=== PATIENT | male | born 1960 | race Asian ===

== ENCOUNTER 2019-04-05 08:51 | Inpatient (IN) | payer MEDICARE ==
[~2019-04-05] VITALS: Ht 167.6 cm; Wt 56.7 kg
--- NOTE | 2019-04-05 09:00 | NUR ---
ED Nurse Note: patient brought into ED from [facility] due to abdominal pain for 1 day. patient c/o itchiness on his back due to psoriasis as well. patient is alert awake x3 patient on a hospital gown, on a residential monitor, patient has AV shunt on the right upper arm.
--- NOTE | 2019-04-05 09:11 | Emergency Room Report ---
History of Present Illness General Chief Complaint: Abdominal Pain Source: Patient Present Illness HPI The patient presents with abdominal pain. He is pointing to his left upper quadrant and left flank area. He states this pain began this morning. He feels nauseated. He rates the pain 7-8/10 constant and fairly severe. Patient is a dialysis patient. They alleged that his dialysis is Monday and Monday. The patient does not make urine. He complains of itching and skin. Allergies: Coded Allergies: No Known Allergies (Unverified , 04/05/19) Patient History Past Medical History: see triage record Social History Narrative [facility] facility Reviewed Nursing Documentation: PMH: Agreed; PSxH: Agreed Nursing Documentation-PMH Past Medical History: No History, Except For Hx Cardiac Problems: Yes - hyperlipidemia Hx COPD: Yes Hx Gastrointestinal Problems: Yes - GERD Hx Dialysis: Yes - T,,S Review of Systems All Other Systems: negative except mentioned in HPI Physical Exam Vital Signs Date Time Temp Pulse Resp B/P (MAP) Pulse Ox O2 Delivery O2 Flow Rate FiO2 04/05/19 08:54 97.7 80 18 180/76 (110) 94 Room Air Sp02 EP Interpretation: reviewed, abnormal - Interpreted as slightly low by me General Appearance: no apparent distress, alert, other - Prefers to keep eyes closed Head: normocephalic Eyes: bilateral eye normal inspection, bilateral eye PERRL, bilateral eye EOMI ENT: moist mucus membranes Neck: full range of motion, supple, no meningismus Respiratory: chest non-tender, lungs clear, normal breath sounds Cardiovascular #1: normal peripheral pulses, regular rate, rhythm, no edema Cardiovascular #2: 2+ radial (R) - Dialysis fistula with thrill Gastrointestinal: normal bowel sounds, no mass, no guarding, no rebound, tenderness - Left upper quadrant Genitourinary: no CVA tenderness Musculoskeletal: back normal, moves extm spontaneously Neurologic: alert, oriented - X2, sensory intact, motor weakness - All 4 Psychiatric: depressed affect Skin: warm/dry, other - Cirrhosis Medical Decision Making Diagnostic Impression: Primary Impression: Abdominal pain Qualified Codes: R10.12 - Left upper quadrant pain Additional Impressions: Enteritis End stage renal disease on dialysis Dermatitis ER Course Dialysis patient presents with left upper quadrant and flank pain beginning this morning. Differential includes acute myocardial infarction, chondritis, renal stone, diverticulitis amongst others. Evaluation with EKG, chest x-ray and CT of the abdomen and pelvis with labs. Patient given some IV hydration and also Reglan, Benadryl and morphine. Serial exams are indicated. Patient has significant comorbidities and may need to be admitted to the hospital. EKG without injury. Chest x-ray with cardiomegaly and some reversal of flow. Normal white count without left shift. Anemia. CMP with chronic renal failure. Patient states the pain is the same however he refuses additional doses of analgesia. Abdomen is still soft. Due to the complexity of this patient and his comorbidities patient admitted to the hospital for further evaluation and treatment. Laboratory Tests Test 04/05/19 09:05 04/05/19 09:15 Prothrombin Time 10.7 SEC (9.30-11.50) Prothrombin Time INR 1.0 (0.9-1.1) Activated Partial Thromboplast Time 34 SEC (23-33) H Sodium Level 137 MMOL/L (136-145) Potassium Level 5.0 MMOL/L (3.5-5.1) Chloride Level 96 MMOL/L (98-107) L Carbon Dioxide Level 29 MMOL/L (21-32) Anion Gap 12 mmol/L (5-15) Blood Urea Nitrogen 30 mg/dL (7-18) H Creatinine 5.6 MG/DL (0.55-1.30) H Estimate Glomerular Filtration Rate 10.5 mL/min (>60) Glucose Level 96 MG/DL (74-106) Lactic Acid Level 1.00 mmol/L (0.4-2.0) Calcium Level 7.9 MG/DL (8.5-10.1) L Magnesium Level 2.3 MG/DL (1.8-2.4) Total Bilirubin 0.4 MG/DL (0.2-1.0) Aspartate Amino Transferase (AST) 21 U/L (15-37) Alanine Aminotransferase (ALT) 12 U/L (12-78) Alkaline Phosphatase 70 U/L (46-116) Troponin I 0.007 ng/mL (0.000-0.056) Total Protein 7.4 G/DL (6.4-8.2) Albumin 2.7 G/DL (3.4-5.0) L Globulin 4.7 g/dL Albumin/Globulin Ratio 0.6 (1.0-2.7) L Lipase 227 U/L (73-393) White Blood Count 5.8 K/UL (4.8-10.8) Red Blood Count 2.95 M/UL (4.70-6.10) L Hemoglobin 9.5 G/DL (14.2-18.0) L Hematocrit 28.2 % (42.0-52.0) L Mean Corpuscular Volume 96 FL (80-99) Mean Corpuscular Hemoglobin 32.2 PG (27.0-31.0) H Mean Corpuscular Hemoglobin Concent 33.6 G/DL (32.0-36.0) Red Cell Distribution Width 12.9 % (11.6-14.8) Platelet Count 176 K/UL (150-450) Mean Platelet Volume 4.7 FL (6.5-10.1) L Neutrophils (%) (Auto) % (45.0-75.0) Lymphocytes (%) (Auto) % (20.0-45.0) Monocytes (%) (Auto) % (1.0-10.0) Eosinophils (%) (Auto) % (0.0-3.0) Basophils (%) (Auto) % (0.0-2.0) Differential Total Cells Counted 100 Neutrophils % (Manual) 56 % (45-75) Lymphocytes % (Manual) 17 % (20-45) L Monocytes % (Manual) 23 % (1-10) H Eosinophils % (Manual) 4 % (0-3) H Basophils % (Manual) 0 % (0-2) Band Neutrophils 0 % (0-8) Platelet Estimate Adequate Platelet Morphology Normal Red Blood Cell Morphology Normal EKG Diagnostic Results Rate: normal Rhythm: NSR ST Segments: no acute changes - Diffuse peaked T waves, LVH Rhythm Strip Diag. Results EP Interpretation: yes Rhythm: NSR, no PVC's, no ectopy Chest X-Ray Diagnostic Results Chest X-Ray Diagnostic Results : Chest X-Ray Ordered: Yes # of Views/Limited/Complete: 1 View Indication: Other EP Interpretation: Yes Interpretation: no effusion, no pneumothorax, other - Cardiomegaly and reversal of flow Impression: Other Electronically Signed by: Electronically signed by Jesus Damon MD CT/MRI/US Diagnostic Results CT/MRI/US Diagnostic Results : Imaging Test Ordered: Abdomen and pelvis Impression Questionable minimal wall thickening of left upper quadrant small bowel loops, if real could indicate mild enteritis changes. Bilateral inguinal lymphadenopathy, nonspecific as regards etiology, could be reactive, neoplastic, or on the basis of a lymphoproliferative disorder. There are also prominent but not frankly enlarged bilateral iliac chain and retroperitoneal lymph nodes. Mild hepatomegaly Atrophic kidneys, in keeping with stated clinical history of chronic renal disease Cardiomegaly Incidental finding of posterior dependent pulmonary atelectatic changes Last Vital Signs Date Time Temp Pulse Resp B/P (MAP) Pulse Ox O2 Delivery O2 Flow Rate FiO2 04/05/19 16:15 Room Air 04/05/19 15:14 97.7 78 15 166/68 95 Status: improved Disposition: ADMITTED INPATIENT Condition: Serious Jesus Damon MD Apr 05, 2019 09:11
[2019-04-05] MEDS ORDERED: Morphine Sulfate 4mg/ml Inj (IV USE ONLY) IVP ONE (09:15)
[2019-04-05] MEDS ORDERED: Metoclopramide 10mg/2ml Inj IVP ONE (09:15)
[2019-04-05] MEDS ORDERED: DiphenhydrAMINE 50mg/ml Inj IVP ONE (09:15)
[2019-04-05] MEDS ORDERED: Omnipaque-300 100ml vial INJ PRN (09:15)
[2019-04-05] MEDS ORDERED: ALBUTEROL2.5 MG/3 M INH (09:35)
[2019-04-05] MEDS ORDERED: CATAPRES0.1 MG ORAL (09:35)
[2019-04-05] MEDS ORDERED: CARVEDILOL12.5 MG ORAL (09:35)
[2019-04-05] MEDS ORDERED: INVEGA3 MG PO (09:35)
[2019-04-05] MEDS ORDERED: ACETAMINOPHEN325 M1 ORAL (09:35)
[2019-04-05] MEDS ORDERED: SERTRALINE HCL50 MG ORAL (09:35)
[2019-04-05 09:41] LABS: HEMATOCRIT 28.2 % (42.0-52.0); HEMOGLOBIN 9.5 G/DL (14.2-18.0); MEAN CORPUSCULAR VOLUME 96 FL (80-99); PLATELET COUNT 176 K/UL (150-450); RED BLOOD COUNT 2.95 M/UL (4.70-6.10); RED CELL DISTRIBUTION WIDTH 12.9 % (11.6-14.8); WHITE BLOOD COUNT 5.8 K/UL (4.8-10.8)
--- NOTE | 2019-04-05 09:50 | NUR ---
.ED Nurse Note: patient taken to CT scan
[2019-04-05 09:55] LABS: ANION GAP 12 mmol/L (5-15); BLOOD UREA NITROGEN 30 mg/dL (7-18); CALCIUM 7.9 MG/DL (8.5-10.1); CARBON DIOXIDE 29 MMOL/L (21-32); CHLORIDE 96 MMOL/L (98-107); CREATININE 5.6 MG/DL (0.55-1.30); SODIUM 137 MMOL/L (136-145)
[2019-04-05 09:59] LABS: ALANINE AMINOTRANSFERASE 12 U/L (12-78); ALBUMIN 2.7 G/DL (3.4-5.0); ALBUMIN/GLOBULIN RATIO 0.6 (1.0-2.7); ALKALINE PHOSPHATASE 70 U/L (46-116); ASPARTATE AMINO TRANSFERASE 21 U/L (15-37); BILIRUBIN,TOTAL 0.4 MG/DL (0.2-1.0)
[2019-04-05 10:33] VITALS: BP 152/76
--- NOTE | 2019-04-05 10:43 | Diagnostic Imaging Report ---
Clinical Indication: Abdominal pain in left upper quadrant and left flank area, 7-8 out of 10, constant and severe Technique: No oral contrast utilized, per emergency room physician request IV administration nonionic contrast. Venous phase spiral acquisition obtained through the abdomen and pelvis. Multiplanar reconstructions were generated. Total dose length product 185 mGycm. CTDIvol(s) 3 mGy. Dose reduction achieved using automated exposure control Comparison: none Findings: Lack of enteric contrast limits assessment of the GI tract. There is no evidence of colonic diverticulosis or diverticulitis. What is probably a normal appendix is visualized. No small bowel distention. There is questionably minimal wall thickening of left upper quadrant small bowel loops. No free or loculated intraperitoneal gas or fluid is evident. There is bilateral inguinal lymphadenopathy, largest nodes measuring up to 2.5 cm long axis dimension by 1.6 cm short axis dimension. There are also prominent less strikingly enlarged iliac chain and retroperitoneal nodes. There are a few prominent peripancreatic nodes as well. The liver is mildly enlarged. Gallbladder demonstrates no definite gallstones. There is equivocal minimal edema of the gallbladder wall, however. No biliary ductal dilatation. The pancreas is unremarkable. The spleen is upper limits of normal in size. The adrenals are unremarkable. The kidneys are atrophic. No pelvic mass other than the lymphadenopathy. The bladder and prostate are unremarkable. There is fairly extensive vascular calcification. The lung bases demonstrate posterior dependent atelectatic changes. The heart is enlarged. The bones are unremarkable. Impression: Limited assessment of the GI tract, due to lack of enteric contrast demonstration Questionable minimal wall thickening of left upper quadrant small bowel loops, if real could indicate mild enteritis changes. Bilateral inguinal lymphadenopathy, nonspecific as regards etiology, could be reactive, neoplastic, or on the basis of a lymphoproliferative disorder. There are also prominent but not frankly enlarged bilateral iliac chain and retroperitoneal lymph nodes. Mild hepatomegaly Atrophic kidneys, in keeping with stated clinical history of chronic renal disease Cardiomegaly Incidental finding of posterior dependent pulmonary atelectatic changes The CT scanner at [facility] is accredited by the [employer] and the scans are performed using protocols designed to limit radiation exposure to as low as reasonably achievable to attain images of sufficient resolution adequate for diagnostic evaluation.
--- NOTE | 2019-04-05 11:22 | GI Initial Consult Note ---
History of Present Illness General Date patient seen: Apr 05, 2019 Time patient seen: 11:10 Reason for Hospitalization: Abdominal Pain Referring physician: MOMO ABDI Reason for Consultation: ABDOMINAL PAIN Present Illness HPI The patient presents with abdominal pain. He is pointing to his left upper quadrant and left flank area. He states this pain began this morning. He feels nauseated. He rates the pain 7-8/10 constant and fairly severe. Patient is a dialysis patient. They alleged that his dialysis is Monday and Monday. The patient does not make urine. GI consulted for reported abdominal pain. Patient seen, awake alert oriented no apparent distress. No active signs symptoms of any nausea vomiting. According to the patient, initial onset began yesterday. The patient denied any prior episodes. The abdomen was soft, mild tenderness in all quadrants, no distention, mild guarding, no rebounding, no peritoneal signs. Abdominal pelvis CT was performed noted questionable minimal wall thickening of the left upper quadrant small bowel loops which may indicative of a mild enteritis changes. There was equivocal minimal edema of the gallbladder wall. No biliary ductal dilation. Pancreas was unremarkable. The patient denied any history of endoscopic or colonoscopy. Laboratory review most significant for hemoglobin 9.5, hematocrit 28.2, no transaminitis, lipase levels within normal limits. Home Meds Reported Medications Paliperidone (INVEGA) 3 Mg Tab.er.24, 3 MG PO for SCHIZO, TAB 04/05/19 Sertraline Hcl* (ZOLOFT*) 50 Mg Tablet, 50 MG ORAL DAILY for SADNESS, TAB 04/05/19 Acetaminophen* (ACETAMINOPHEN 325MG TABLET*) 325 Mg Tablet, 650 MG ORAL Q4H PRN for Pain Scale (3-5), TAB 04/05/19 Clonidine Hcl* (CATAPRES*) 0.1 Mg Tablet, 0.1 MG ORAL EVERY 6 HOURS for HTN, TAB 04/05/19 Carvedilol* (CARVEDILOL*) 12.5 Mg Tablet, 12.5 MG ORAL EVERY 12 HOURS for UNK, TAB 04/05/19 Albuterol Sulfate* (ALBUTEROL SULFATE HHN*) 2.5 Mg/3 Ml Vial.neb, 3 ML INH Q4H PRN for Shortness of Breath, EA 04/05/19 Med list reviewed/reconciled: Yes Allergies: Coded Allergies: No Known Allergies (Unverified , 04/05/19) Patient History History Provided By: Patient, Medical Record Past Medical History: other - ESRD Pertinent Family History: none Social History: Denies: smoking, alcohol use, drug use, other Review of Systems All Other Systems: negative except mentioned in HPI Physical Exam Vital Signs Date Time Temp Pulse Resp B/P (MAP) Pulse Ox O2 Delivery O2 Flow Rate FiO2 04/05/19 08:54 97.7 80 18 180/76 (110) 94 Room Air Sp02 EP Interpretation: reviewed, normal Labs Laboratory Tests Test 04/05/19 09:05 04/05/19 09:15 Prothrombin Time 10.7 SEC (9.30-11.50) Prothromb Time International Ratio 1.0 (0.9-1.1) Activated Partial Thromboplast Time 34 SEC (23-33) H Sodium Level 137 MMOL/L (136-145) Potassium Level 5.0 MMOL/L (3.5-5.1) Chloride Level 96 MMOL/L (98-107) L Carbon Dioxide Level 29 MMOL/L (21-32) Anion Gap 12 mmol/L (5-15) Blood Urea Nitrogen 30 mg/dL (7-18) H Creatinine 5.6 MG/DL (0.55-1.30) H Estimat Glomerular Filtration Rate 10.5 mL/min (>60) Glucose Level 96 MG/DL (74-106) Lactic Acid Level 1.00 mmol/L (0.4-2.0) Calcium Level 7.9 MG/DL (8.5-10.1) L Magnesium Level 2.3 MG/DL (1.8-2.4) Total Bilirubin 0.4 MG/DL (0.2-1.0) Aspartate Amino Transf (AST/SGOT) 21 U/L (15-37) Alanine Aminotransferase (ALT/SGPT) 12 U/L (12-78) Alkaline Phosphatase 70 U/L (46-116) Troponin I 0.007 ng/mL (0.000-0.056) Total Protein 7.4 G/DL (6.4-8.2) Albumin 2.7 G/DL (3.4-5.0) L Globulin 4.7 g/dL Albumin/Globulin Ratio 0.6 (1.0-2.7) L Lipase 227 U/L (73-393) White Blood Count 5.8 K/UL (4.8-10.8) Red Blood Count 2.95 M/UL (4.70-6.10) L Hemoglobin 9.5 G/DL (14.2-18.0) L Hematocrit 28.2 % (42.0-52.0) L Mean Corpuscular Volume 96 FL (80-99) Mean Corpuscular Hemoglobin 32.2 PG (27.0-31.0) H Mean Corpuscular Hemoglobin Concent 33.6 G/DL (32.0-36.0) Red Cell Distribution Width 12.9 % (11.6-14.8) Platelet Count 176 K/UL (150-450) Mean Platelet Volume 4.7 FL (6.5-10.1) L Neutrophils (%) (Auto) % (45.0-75.0) Lymphocytes (%) (Auto) % (20.0-45.0) Monocytes (%) (Auto) % (1.0-10.0) Eosinophils (%) (Auto) % (0.0-3.0) Basophils (%) (Auto) % (0.0-2.0) Neutrophils % (Manual) Pending Lymphocytes % (Manual) Pending Platelet Estimate Pending Platelet Morphology Pending General Appearance: well appearing, no apparent distress, alert Head: normocephalic EENT: PERRL/EOMI, normal ENT inspection Neck: supple Respiratory: normal breath sounds, no respiratory distress Cardiovascular: normal rate Gastrointestinal: normal inspection, non tender, soft, normal bowel sounds, non -distended, other - see HPI Rectal: deferred Genitourinary: deferred Musculoskeletal: normal inspection, back normal Neurologic: alert, oriented x3, responsive, normal inspection Psychiatric: normal inspection, judgement/insight normal, memory normal Skin: normal inspection, normal color, no rash, warm/dry, palpation normal, well hydrated Lymphatic: normal inspection, no adenopathy Current Medications Current Medications Medications (Trade) Dose Ordered Sig/Velma Route PRN Reason Start Time Stop Time Status Last Admin Dose Admin Iohexol (OMNIPAQUE-300 100ml) 100 ml NOW PRN INJ Radiology Procedure 04/05/19 09:15 04/07/19 09:02 GI: Plan Problems: (1) Abdominal pain (2) Enteritis (3) Anemia Plan #Abdominal pain secondary to viral enteritis CT reviewed (04/05/19) >> Questionable minimal wall thickening of left upper quadrant small bowel loops, if real could indicate mild enteritis changes. Bowel rest, maintain n.p.o. plus IV fluids Advance diet as tolerated Zofran PRN for any nausea vomiting Collect stool studies and C. difficile if patient has persistent diarrhea rule out bacterial Pain management We will consider endoscopy if patient has persistent abdominal pain #Anemia most likely secondary to chronic kidney disease anemia work up Obtain occult blood stool to evaluate for any GI bleed monitor H&H, prn transfusions Prophylactic PPI We will follow on a daily basis with any additional recommendations Outpatient GI procedures Discussed with Dr. Novak. Thank you for this patient referral, we will follow. The patient was seen and examined at bedside and all new and available data was reviewed in the patients chart. I agree with the above findings, impression and plan. (Patient seen earlier today. Signature stamp does not reflect patient encounter time.). - MD Bree FlorDignity Health St[facility] Joseph'S Hospital And Medical CenterBenjamin REFIN[employer]ATOR [employer] Apr 05, 2019 11:22
--- NOTE | 2019-04-05 11:45 | Consultation ---
History of Present Illness General Date patient seen: Apr 05, 2019 Reason for Hospitalization: Abdominal Pain Present Illness HPI This is a 58 year old male with hx of ESRD on HD who is a custodial resident presented [place] [facility] with complaints of abdominal pain. States pain in left upper quadrant and left flank area. He states this pain began this morning. He feels nauseated but no emesis. He rates the pain 7-8/10 constant and fairly severe without radiation. Usually receives dialysis on Monday and Monday. Surgery consulted to evaluate for abdominal pain. Patient seen in ED , evaluate, chart reviewed. He is awake alert oriented and no apparent distress. No active signs symptoms of any nausea vomiting. No prior similar history. The abdomen is soft, minimal tenderness in all quadrants but states mainly on left upper. No distention, no guarding, no rebounding, no peritoneal signs. Abdominal pelvis CT was performed noted questionable minimal wall thickening of the left upper quadrant small bowel loops which may indicative of a mild enteritis changes. There was equivocal minimal edema of the gallbladder wall. No biliary ductal dilation. Pancreas was unremarkable. States he has not had a BM in a few days Allergies: Coded Allergies: No Known Allergies (Unverified , 04/05/19) Medication History Scheduled Carvedilol* (Carvedilol*), 12.5 MG ORAL EVERY 12 HOURS, (Reported) Clonidine Hcl* (Catapres*), 0.1 MG ORAL EVERY 6 HOURS, (Reported) Sertraline Hcl* (Zoloft*), 50 MG ORAL DAILY, (Reported) Scheduled PRN Acetaminophen* (Acetaminophen 325MG Tablet*), 650 MG ORAL Q4H PRN for Pain Scale (3-5), (Reported) Albuterol Sulfate* (Albuterol Sulfate Hhn*), 3 ML INH Q4H PRN for Shortness of Breath, (Reported) Miscellaneous Medications Paliperidone (Invega), 3 MG PO, (Reported) Patient History Limited by: medical condition History Provided By: Patient, Medical Record, PMD Healthcare decision maker Resuscitation status Advanced Directive on File Past Medical/Surgical History Past Medical/Surgical History: (1) Anemia (2) Enteritis (3) Abdominal pain Review of Systems Review of Symptoms General ROS: no weight loss or fever Psychological ROS: no depression or mood changes, no memory loss Ophthalmic ROS: no visual changes or eye irritation ENT ROS: no nasal congestion, hearing loss, dizziness Allergy and Immunology ROS: no allergic symptoms or urticaria Hematological and Lymphatic ROS: no swollen glands, unusual bleeding or bruising Endocrine ROS: no polyuria, polydipsia, weight changes, temperature intolerance Respiratory ROS: no cough, shortness of breath, or wheezing Cardiovascular ROS: no chest pain or dyspnea on exertion Gastrointestinal ROS: abdominal pain, no bright red blood in stool. Musculoskeletal ROS: no myalgias or arthralgias Neurological ROS: no TIA or stroke symptoms Dermatological ROS: no new or changing skin lesions, rashes or pruritis Physical Exam Physical Exam General appearance: alert, cooperative, no distress, appears stated age. Head: Normocephalic, without obvious abnormality, atraumatic Eyes: conjunctivae/corneas clear. PERRL, EOM's intact. Fundi benign Throat: Lips, mucosa, and tongue normal. Teeth and gums normal Neck: supple, symmetrical, trachea midline, no adenopathy, thyroid: not enlarged, symmetric, no tenderness/mass/nodules, no carotid bruit and no JVD Lungs: clear to auscultation bilaterally Heart: regular rate and rhythm, S1, S2 normal, no murmur, click, rub or gallop Abdomen: soft, minimal discomfort but non tender. Bowel sounds normal. No masses, no organomegaly Extremities: extremities normal, atraumatic, no cyanosis or edema Pulses: 2+ and symmetric Skin: Skin color, texture, turgor normal. dry skin with excortication Neurologic: Grossly normal Last 24 Hour Vital Signs Date Time Temp Pulse Resp B/P (MAP) Pulse Ox O2 Delivery O2 Flow Rate FiO2 04/05/19 10:33 97.7 78 15 152/76 95 Room Air 04/05/19 10:00 97.7 04/05/19 09:52 80 18 Room Air 04/05/19 08:54 97.7 80 18 180/76 (110) 94 Room Air Laboratory Tests Test 04/05/19 09:05 04/05/19 09:15 Prothrombin Time 10.7 SEC (9.30-11.50) Prothromb Time International Ratio 1.0 (0.9-1.1) Activated Partial Thromboplast Time 34 SEC (23-33) H Sodium Level 137 MMOL/L (136-145) Potassium Level 5.0 MMOL/L (3.5-5.1) Chloride Level 96 MMOL/L (98-107) L Carbon Dioxide Level 29 MMOL/L (21-32) Anion Gap 12 mmol/L (5-15) Blood Urea Nitrogen 30 mg/dL (7-18) H Creatinine 5.6 MG/DL (0.55-1.30) H Estimat Glomerular Filtration Rate 10.5 mL/min (>60) Glucose Level 96 MG/DL (74-106) Lactic Acid Level 1.00 mmol/L (0.4-2.0) Calcium Level 7.9 MG/DL (8.5-10.1) L Magnesium Level 2.3 MG/DL (1.8-2.4) Total Bilirubin 0.4 MG/DL (0.2-1.0) Aspartate Amino Transf (AST/SGOT) 21 U/L (15-37) Alanine Aminotransferase (ALT/SGPT) 12 U/L (12-78) Alkaline Phosphatase 70 U/L (46-116) Troponin I 0.007 ng/mL (0.000-0.056) Total Protein 7.4 G/DL (6.4-8.2) Albumin 2.7 G/DL (3.4-5.0) L Globulin 4.7 g/dL Albumin/Globulin Ratio 0.6 (1.0-2.7) L Lipase 227 U/L (73-393) White Blood Count 5.8 K/UL (4.8-10.8) Red Blood Count 2.95 M/UL (4.70-6.10) L Hemoglobin 9.5 G/DL (14.2-18.0) L Hematocrit 28.2 % (42.0-52.0) L Mean Corpuscular Volume 96 FL (80-99) Mean Corpuscular Hemoglobin 32.2 PG (27.0-31.0) H Mean Corpuscular Hemoglobin Concent 33.6 G/DL (32.0-36.0) Red Cell Distribution Width 12.9 % (11.6-14.8) Platelet Count 176 K/UL (150-450) Mean Platelet Volume 4.7 FL (6.5-10.1) L Neutrophils (%) (Auto) % (45.0-75.0) Lymphocytes (%) (Auto) % (20.0-45.0) Monocytes (%) (Auto) % (1.0-10.0) Eosinophils (%) (Auto) % (0.0-3.0) Basophils (%) (Auto) % (0.0-2.0) Neutrophils % (Manual) Pending Lymphocytes % (Manual) Pending Platelet Estimate Pending Platelet Morphology Pending Height (Feet): 5 Height (Inches): 6.00 Weight (Pounds): 150 Medications Current Medications Medications (Trade) Dose Ordered Sig/Velma Route PRN Reason Start Time Stop Time Status Last Admin Dose Admin Iohexol (OMNIPAQUE-300 100ml) 100 ml NOW PRN INJ Radiology Procedure 04/05/19 09:15 04/07/19 09:02 Pantoprazole (Protonix) 40 mg DAILY ORAL 04/06/19 09:00 05/06/19 08:59 Assessment/Plan Problem List: (1) Abdominal pain Assessment & Plan: 58 year old male with likely enteritis. afebrile HD stable, labs okay CT noted as below abd exam fairly benign constipated okay for diet bowel regimen trend labs iv hydration will follow with serial exams thank you Lack of enteric contrast limits assessment of the GI tract. There is no evidence of colonic diverticulosis or diverticulitis. What is probably a normal appendix is visualized. No small bowel distention. There is questionably minimal wall thickening of left upper quadrant small bowel loops. No free or loculated intraperitoneal gas or fluid is evident. There is bilateral inguinal lymphadenopathy, largest nodes measuring up to 2.5 cm long axis dimension by 1.6 cm short axis dimension. There are also prominent less strikingly enlarged iliac chain and retroperitoneal nodes. There are a few prominent peripancreatic nodes as well. The liver is mildly enlarged. Gallbladder demonstrates no definite gallstones. There is equivocal minimal edema of the gallbladder wall, however. No biliary ductal dilatation. The pancreas is unremarkable. The spleen is upper limits of normal in size. The adrenals are unremarkable. The kidneys are atrophic. No pelvic mass other than the lymphadenopathy. The bladder and prostate are unremarkable. There is fairly extensive vascular calcification. The lung bases demonstrate posterior dependent atelectatic changes. The heart is enlarged. The bones are unremarkable. Impression: Limited assessment of the GI tract, due to lack of enteric contrast demonstration Questionable minimal wall thickening of left upper quadrant small bowel loops, if real could indicate mild enteritis changes. Bilateral inguinal lymphadenopathy, nonspecific as regards etiology, could be reactive, neoplastic, or on the basis of a lymphoproliferative disorder. There are also prominent but not frankly enlarged bilateral iliac chain and retroperitoneal lymph nodes. Mild hepatomegaly Atrophic kidneys, in keeping with stated clinical history of chronic renal disease Cardiomegaly ICD Codes: R10.9 - Unspecified abdominal pain SNOMED: 53200394 Mason Cruz Apr 05, 2019 11:45
--- NOTE | 2019-04-05 13:26 | Consultation ---
Consult Note Consult Note Asked to eval for renal failure and dialysis management- Poor historian- Doesnt remember Location of OP dialysis, [facility], How long on HD ... Has fistula right upper arm ER The patient presents with abdominal pain. He is pointing to his left upper quadrant and left flank area. He states this pain began this morning. He feels nauseated. He rates the pain 7-8/10 constant and fairly severe. Patient is a dialysis patient. They alleged that his dialysis is Monday and Monday. The patient does not make urine. He complains of itching and skin. No Known Allergies (Unverified , 04/05/19) Past Medical History: No History, Except For Hx Cardiac Problems: Yes - hyperlipidemia Hx COPD: Yes Hx Gastrointestinal Problems: Yes - GERD Hx Dialysis: Yes - ,,S o/e has scaly skin lesions through out his body Assessment/Plan ESRD- Abdominal pain- Scaly skin lesions- Anemia of CKD HTN HD in am REnal diet when Ok to start PO by GI HD in am per orders Mayank King MD Apr 05, 2019 13:26
--- NOTE | 2019-04-05 14:08 | Diagnostic Imaging Report ---
Indication: Shortness of breath Technique: One view of the chest Comparison: none Findings: The heart is enlarged. There is mild interstitial edema. No focal airspace consolidation. No effusions. Impression: Cardiomegaly Mild interstitial edema
[2019-04-05 14:30] VITALS: BP 166/68
--- NOTE | 2019-04-05 14:50 | NUR ---
ED Nurse Note: Dr. Damon notified with SBP 166, Dr. Damon is ok for the patient to go to [facility] at this time.
--- NOTE | 2019-04-05 15:05 | NUR ---
ED Nurse Note: report given to Elvin Sharpe, endorsed all plan of care to Elvin Sharpe.
--- NOTE | 2019-04-05 15:14 | NUR ---
ER DISCHARGE NOTE: Patient transferred to with Beto Shi RN with all of his belongings.
--- NOTE | 2019-04-05 15:20 | NUR ---
NURSE NOTES: checked counted belongings with patient. AV shunt for HD on Right upper arm.
--- NOTE | 2019-04-05 15:20 | NUR ---
NURSE NOTES: patient admitted to room 419-[address] valentina kurtz, dx of abdominal pain. 2ndary anemia, enteritis. alert. oriented. verbally responsive. no respiratory distress noted on room air. left flank pain 10/16. skin dry and flaky. refused to check skin assess and change to hospital gown. refused to check vital sign at this time. IV on LAC 20g. dressing intact. bed in the lowest position and locked. call light within reach. will continue to provide plan of care.
--- NOTE | 2019-04-05 16:10 | NUR ---
NURSE NOTES: scheduled HD with [facility] tomorrow. spoke to May for the scheduling.
--- NOTE | 2019-04-05 16:20 | NUR ---
NURSE NOTES: Got a call from [facility] and spoke to Jessenia delinquency prevention social worker. Per Jessenia: When patient is ready to discharge, call patient's delinquency prevention social worker Melony instead of calling [facility].
--- NOTE | 2019-04-05 16:44 | NUR ---
NURSE NOTES: Notified that patient admitted to room 419-1. waiting order for DVT and code status.
--- NOTE | 2019-04-05 17:30 | History and Physical Report ---
DATE OF ADMISSION: 04/05/2019 DATE AND TIME SEEN: On 04/05/2019 at 11 a.m. CONSULTANTS: 1. Luis Manuel Novak M.D. 2. Mason Cruz M.D. CHIEF COMPLAINT: Abdominal pain. BRIEF HISTORY: This is a 58-year-old male from [facility], who presented with increased abdominal pain for one day. No nausea or vomiting. Pressure like . No radiation. The patient came to [facility] and diagnosed of above. Currently awaiting CT of abdomen, no complaint. REVIEW OF SYSTEMS: No chest pain. Slight shortness of breath. No nausea or vomiting. No diarrhea. PAST MEDICAL HISTORY: Diabetes. PAST SURGICAL HISTORY: None. ALLERGIES: Denies. MEDICATIONS: Include Protonix, Reglan, famotidine, morphine, diphenhydramine, and IV fluids. SOCIAL HISTORY: No smoking. No alcohol. No intravenous drug abuse. FAMILY HISTORY: Noncontributory. PHYSICAL EXAMINATION: GENERAL: Calm in bed, oriented x2, and in no acute distress. VITAL SIGNS: Temperature 97, pulse 78, respirations 15, and blood pressure 152/76. CARDIOVASCULAR: No murmur. LUNGS: Distant and clear. ABDOMEN: Bowel sounds positive. Slightly tender. No guarding. No rigidity. No rebound. EXTREMITIES: No cyanosis or edema. NEUROLOGIC: The patient moves all extremities, slightly weak. LABORATORY DATA: Laboratories at this time show hemoglobin and hematocrit 9.5/28, otherwise CBC is normal. BMP shows chloride 96, BUN and creatinine is 30/5.6. INR is 1.0 and PTT 34. ASSESSMENT: Abdominal pain, renal failure, anemia, and diabetes. PLAN: Blood pressure and blood sugar control. Dietary followup. Nephrology followup. PT and dietary evaluation. CBC and BMP in the morning. Shiraz Ricks D.O. DR: Meg JOB#: [id number] CC:
[2019-04-05] MEDS: Docusate 100mg cap ORAL SCH (18:55)
--- NOTE | 2019-04-05 19:18 | NUR ---
NURSE NOTES: Received report from JESI Oconnor. Patient is wake, alert, able to make needs known. On room air with no signs of distress or SOB. IV intact and patent. EZRA shunt noted. Bed locked and in lowest position. Call light in reach. Will continue to monitor.
--- NOTE | 2019-04-05 19:26 | NUR ---
HAND-OFF: Report given to JESI Nash .
[2019-04-05 20:00] VITALS: BP 167/87
[2019-04-05] MEDS: Carvedilol 12.5mg tab ORAL SCH (20:40)
[2019-04-05] MEDS: Heparin 5000 units/ml inj SUBQ SCH (20:44)
[2019-04-06] VITALS: BP 141/61
[2019-04-06 04:00] VITALS: BP 151/58
[2019-04-06 07:17] LABS: BASOPHILS % (AUTO) 1.6 % (0.0-2.0); EOSINOPHILS % (AUTO) 3.2 % (0.0-3.0); HEMOGLOBIN 8.9 G/DL (14.2-18.0); LYMPHOCYTES % (AUTO) 15.8 % (20.0-45.0); MEAN CORPUSCULAR VOLUME 97 FL (80-99); MONOCYTES % (AUTO) 18.8 % (1.0-10.0); NEUTROPHILS % (AUTO) 60.6 % (45.0-75.0); PLATELET COUNT 185 K/UL (150-450); RED BLOOD COUNT 2.78 M/UL (4.70-6.10); WHITE BLOOD COUNT 7.1 K/UL (4.8-10.8)
[2019-04-06 07:21] LABS: INR 1.1 (0.9-1.1)
[2019-04-06 07:27] LABS: AMMONIA 34 umol/L (11-32)
--- NOTE | 2019-04-06 07:35 | NUR ---
NURSE NOTES: Received report from JESI Nash. Patient in bed. On room air, no signs of distress of labored breathing. IV intact, patent, and saline locked. Bed in lowest position with call light in reach. Side rails up x3. Will continue with plan of care.
[2019-04-06 07:46] LABS: GAMMA GLUTAMYL TRANSPEPTIDASE 34 U/L (5-85); PHOSPHORUS 7.4 MG/DL (2.5-4.9)
--- NOTE | 2019-04-06 07:46 | NUR ---
HAND-OFF: Report given to JESI Cruz.
[2019-04-06 07:49] LABS: ALANINE AMINOTRANSFERASE 11 U/L (12-78); ALBUMIN 2.5 G/DL (3.4-5.0); ALBUMIN/GLOBULIN RATIO 0.6 (1.0-2.7); ALKALINE PHOSPHATASE 61 U/L (46-116); ANION GAP 13 mmol/L (5-15); ASPARTATE AMINO TRANSFERASE 18 U/L (15-37); BILIRUBIN,TOTAL 0.4 MG/DL (0.2-1.0); BLOOD UREA NITROGEN 41 mg/dL (7-18); CALCIUM 7.6 MG/DL (8.5-10.1); CARBON DIOXIDE 26 MMOL/L (21-32); CHLORIDE 96 MMOL/L (98-107); CHOLESTEROL 90 MG/DL (< 200); CREATININE 7.5 MG/DL (0.55-1.30); FERRITIN 672 NG/ML (8-388); HDL CHOLESTEROL 22 MG/DL (40-60); SODIUM 135 MMOL/L (136-145); TRIGLYCERIDES 92 MG/DL (30-150)
[2019-04-06 07:51] LABS: POTASSIUM 6.5 MMOL/L (3.5-5.1)
[2019-04-06 08:00] VITALS: BP 152/67
[2019-04-06 08:17] LABS: % IRON SATURATION 13 % (15-50); IRON 18 ug/dL (50-175); TOTAL IRON BINDING CAPACITY 134 ug/dL (250-450)
[2019-04-06] MEDS: Carvedilol 12.5mg tab ORAL SCH (09:00)
[2019-04-06] MEDS: Docusate 100mg cap ORAL SCH ×3 (09:27→18:00)
[2019-04-06] MEDS: Heparin 5000 units/ml inj SUBQ SCH ×2 (09:30→22:40)
--- NOTE | 2019-04-06 09:30 | NUR ---
NURSE NOTES: Notified Dr. King in person of 6.5 Potassium although patient will be receiving dialysis today. MD to review and input necessary orders. Charge nurse aware.
--- NOTE | 2019-04-06 09:31 | General Progress Note ---
Assessment/Plan Problem List: (1) Anemia ICD Codes: D64.9 - Anemia, unspecified SNOMED: 580108690 (2) Dermatitis ICD Codes: L30.9 - Dermatitis, unspecified SNOMED: 475661519 (3) Enteritis ICD Codes: K52.9 - Noninfective gastroenteritis and colitis, unspecified SNOMED: 53742318 (4) Abdominal pain ICD Codes: R10.9 - Unspecified abdominal pain SNOMED: 03289046 Qualifiers: Qualified Codes: R10.12 - Left upper quadrant pain (5) End stage renal disease on dialysis ICD Codes: N18.6 - End stage renal disease; Z99.2 - Dependence on renal dialysis SNOMED: 481957065 Status: unchanged Assessment/Plan: pt diet dialysis prn gi f/u cbc bmp am Subjective Constitutional: Reports: weakness Allergies: Coded Allergies: No Known Allergies (Unverified , 04/05/19) All Systems: reviewed and negative except above Subjective sleepy calm Objective Last 24 Hour Vital Signs Date Time Temp Pulse Resp B/P (MAP) Pulse Ox O2 Delivery O2 Flow Rate FiO2 04/06/19 08:00 99.8 98 18 152/67 (95) 99 04/06/19 04:00 98.4 82 20 151/58 (89) 92 04/06/19 00:00 98.6 78 20 141/61 (87) 95 04/05/19 21:00 Room Air 04/05/19 20:40 103 167/87 04/05/19 20:00 97.9 103 24 167/87 (113) 97 04/05/19 16:15 Room Air 04/05/19 15:14 97.7 78 15 166/68 95 Room Air 04/05/19 14:30 97.7 78 15 166/68 95 Room Air 04/05/19 10:33 97.7 78 15 152/76 95 Room Air 04/05/19 10:00 97.7 04/05/19 09:52 80 18 Room Air Intake and Output 04/05/19 04/06/19 19:00 07:00 Output Total 0 ml Balance 0 ml Output Urine Total 0 ml Laboratory Tests 04/06/19 06:30: White Blood Count 7.1, Red Blood Count 2.78L, Hemoglobin 8.9L, Hematocrit 27.0L , Mean Corpuscular Volume 97, Mean Corpuscular Hemoglobin 32.2H, Mean Corpuscular Hemoglobin Concent 33.1, Red Cell Distribution Width 13.0, Platelet Count 185, Mean Platelet Volume 4.4L, Neutrophils (%) (Auto) 60.6, Lymphocytes ( %) (Auto) 15.8L, Monocytes (%) (Auto) 18.8H, Eosinophils (%) (Auto) 3.2H, Basophils (%) (Auto) 1.6, Reticulocyte Count [Pending], Prothrombin Time 11.4, Prothromb Time International Ratio 1.1, Activated Partial Thromboplast Time 33, Sodium Level 135L, Potassium Level 6.5*H, Chloride Level 96L, Carbon Dioxide Level 26, Anion Gap 13, Blood Urea Nitrogen 41H, Creatinine 7.5H, Estimat Glomerular Filtration Rate 7.5, Glucose Level 67L, Hemoglobin A1c 5.5, Lactic Acid Level 1.20, Uric Acid 9.2H, Calcium Level 7.6L, Phosphorus Level 7.4H, Magnesium Level 2.6H, Iron Level 18L, Total Iron Binding Capacity 134L, Percent Iron Saturation 13L, Unsaturated Iron Binding 116, Ferritin 672H, Total Bilirubin 0.4, Gamma Glutamyl Transpeptidase 34, Aspartate Amino Transf (AST/ SGOT) 18, Alanine Aminotransferase (ALT/SGPT) 11L, Alkaline Phosphatase 61, Ammonia 34H, Troponin I 0.003, C-Reactive Protein, Quantitative 14.6H, Pro-B- Type Natriuretic Peptide > 75277Q, Total Protein 7.0, Albumin 2.5L, Globulin 4.5 , Albumin/Globulin Ratio 0.6L, Triglycerides Level 92, Cholesterol Level 90, LDL Cholesterol 55, HDL Cholesterol 22L, Cholesterol/HDL Ratio 4.1, Carcinoembryonic Antigen [Pending], Vitamin B12 Level 639, Folate [Pending], Thyroid Stimulating Hormone (TSH) 3.089, Free Thyroxine 1.27 Height (Feet): 5 Height (Inches): 6.00 Weight (Pounds): 149 General Appearance: lethargic EENT: normal ENT inspection Neck: normal alignment Cardiovascular: normal peripheral pulses, normal rate, regular rhythm Respiratory/Chest: chest wall non-tender, lungs clear, normal breath sounds Abdomen: normal bowel sounds, non tender, soft Extremities: normal inspection Edema: no edema noted Arm (L), no edema noted Arm (R), no edema noted Leg (L), no edema noted Leg (R), no edema noted Pedal (L), no edema noted Pedal (R), no edema noted Generalized Neurologic: motor weakness Skin: normal pigmentation, warm/dry Shiraz Ricks DO Apr 06, 2019 09:30
[2019-04-06] MEDS: Sodium Polystyrene Sulfonate 15gm Powder ORAL SCH ×2 (10:15→11:26)
--- NOTE | 2019-04-06 10:21 | Nephrology Progress Note ---
Assessment/Plan Problem List: (1) End stage renal disease on dialysis (2) Dermatitis (3) Abdominal pain (4) Hypertensive kidney disease (5) Anemia in chronic kidney disease (CKD) Assessment ESRD- high K today Abdominal pain- Scaly skin lesions- Anemia of CKD HTN Plan HD today- Venofer and Epogen adjust BP meds 2D echo Kayexelate PO Renal diet when Ok to start PO by GI Phos binders per orders Objective Objective Last 24 Hour Vital Signs Date Time Temp Pulse Resp B/P (MAP) Pulse Ox O2 Delivery O2 Flow Rate FiO2 04/06/19 09:00 98 152/67 04/06/19 08:00 99.8 98 18 152/67 (95) 99 04/06/19 04:00 98.4 82 20 151/58 (89) 92 04/06/19 00:00 98.6 78 20 141/61 (87) 95 04/05/19 21:00 Room Air 04/05/19 20:40 103 167/87 04/05/19 20:00 97.9 103 24 167/87 (113) 97 04/05/19 16:15 Room Air 04/05/19 15:14 97.7 78 15 166/68 95 Room Air 04/05/19 14:30 97.7 78 15 166/68 95 Room Air 04/05/19 10:33 97.7 78 15 152/76 95 Room Air Intake and Output 04/05/19 04/06/19 19:00 07:00 Output Total 0 ml Balance 0 ml Output Urine Total 0 ml Laboratory Tests 04/06/19 06:30: White Blood Count 7.1, Red Blood Count 2.78L, Hemoglobin 8.9L, Hematocrit 27.0L , Mean Corpuscular Volume 97, Mean Corpuscular Hemoglobin 32.2H, Mean Corpuscular Hemoglobin Concent 33.1, Red Cell Distribution Width 13.0, Platelet Count 185, Mean Platelet Volume 4.4L, Neutrophils (%) (Auto) 60.6, Lymphocytes ( %) (Auto) 15.8L, Monocytes (%) (Auto) 18.8H, Eosinophils (%) (Auto) 3.2H, Basophils (%) (Auto) 1.6, Reticulocyte Count [Pending], Prothrombin Time 11.4, Prothromb Time International Ratio 1.1, Activated Partial Thromboplast Time 33, Sodium Level 135L, Potassium Level 6.5*H, Chloride Level 96L, Carbon Dioxide Level 26, Anion Gap 13, Blood Urea Nitrogen 41H, Creatinine 7.5H, Estimat Glomerular Filtration Rate 7.5, Glucose Level 67L, Hemoglobin A1c 5.5, Lactic Acid Level 1.20, Uric Acid 9.2H, Calcium Level 7.6L, Phosphorus Level 7.4H, Magnesium Level 2.6H, Iron Level 18L, Total Iron Binding Capacity 134L, Percent Iron Saturation 13L, Unsaturated Iron Binding 116, Ferritin 672H, Total Bilirubin 0.4, Gamma Glutamyl Transpeptidase 34, Aspartate Amino Transf (AST/ SGOT) 18, Alanine Aminotransferase (ALT/SGPT) 11L, Alkaline Phosphatase 61, Ammonia 34H, Troponin I 0.003, C-Reactive Protein, Quantitative 14.6H, Pro-B- Type Natriuretic Peptide > 40703J, Total Protein 7.0, Albumin 2.5L, Globulin 4.5 , Albumin/Globulin Ratio 0.6L, Triglycerides Level 92, Cholesterol Level 90, LDL Cholesterol 55, HDL Cholesterol 22L, Cholesterol/HDL Ratio 4.1, Carcinoembryonic Antigen [Pending], Vitamin B12 Level 639, Folate [Pending], Thyroid Stimulating Hormone (TSH) 3.089, Free Thyroxine 1.27 Height (Feet): 5 Height (Inches): 6.00 Weight (Pounds): 149 Mayank King MD Apr 06, 2019 10:21
--- NOTE | 2019-04-06 11:31 | NUR ---
NURSE NOTES: Patient refused Kayexalate. RN explained risks and benefits of medication but patient continued to refuse. Charge nurse aware.
--- NOTE | 2019-04-06 11:33 | NUR ---
PT Note Attempted to see patient for PT eval/tx but patient adamantly refused, c/o feeling tired. RN was notified.
[2019-04-06 12:00] VITALS: BP 150/67
--- NOTE | 2019-04-06 14:02 | Surgery Progress Note ---
Surgery Progress Note Subjective Additional Comments no acute events comfortable more alert and awake stategs he feels well Objective Last 24 Hour Vital Signs Date Time Temp Pulse Resp B/P (MAP) Pulse Ox O2 Delivery O2 Flow Rate FiO2 04/06/19 12:00 98.3 72 17 150/67 (94) 94 04/06/19 09:00 98 152/67 04/06/19 09:00 Room Air 04/06/19 08:00 99.8 98 18 152/67 (95) 99 04/06/19 04:00 98.4 82 20 151/58 (89) 92 04/06/19 00:00 98.6 78 20 141/61 (87) 95 04/05/19 21:00 Room Air 04/05/19 20:40 103 167/87 04/05/19 20:00 97.9 103 24 167/87 (113) 97 04/05/19 16:15 Room Air 04/05/19 15:14 97.7 78 15 166/68 95 Room Air 04/05/19 14:30 97.7 78 15 166/68 95 Room Air I&O Intake and Output 04/05/19 04/06/19 19:00 07:00 Output Total 0 ml Balance 0 ml Output Urine Total 0 ml Dressing: dry Wound: clean Cardiovascular: RSR Respiratory: clear Abdomen: soft, flat, non-tender, present bowel sounds Extremities: no cyanosis, other - dry skin and scaly Laboratory Tests Test 04/06/19 06:30 White Blood Count 7.1 K/UL (4.8-10.8) Red Blood Count 2.78 M/UL (4.70-6.10) L Hemoglobin 8.9 G/DL (14.2-18.0) L Hematocrit 27.0 % (42.0-52.0) L Mean Corpuscular Volume 97 FL (80-99) Mean Corpuscular Hemoglobin 32.2 PG (27.0-31.0) H Mean Corpuscular Hemoglobin Concent 33.1 G/DL (32.0-36.0) Red Cell Distribution Width 13.0 % (11.6-14.8) Platelet Count 185 K/UL (150-450) Mean Platelet Volume 4.4 FL (6.5-10.1) L Neutrophils (%) (Auto) 60.6 % (45.0-75.0) Lymphocytes (%) (Auto) 15.8 % (20.0-45.0) L Monocytes (%) (Auto) 18.8 % (1.0-10.0) H Eosinophils (%) (Auto) 3.2 % (0.0-3.0) H Basophils (%) (Auto) 1.6 % (0.0-2.0) Reticulocyte Count 2.0 % (0.5-2.0) Prothrombin Time 11.4 SEC (9.30-11.50) Prothromb Time International Ratio 1.1 (0.9-1.1) Activated Partial Thromboplast Time 33 SEC (23-33) Sodium Level 135 MMOL/L (136-145) L Potassium Level 6.5 MMOL/L (3.5-5.1) *H Chloride Level 96 MMOL/L (98-107) L Carbon Dioxide Level 26 MMOL/L (21-32) Anion Gap 13 mmol/L (5-15) Blood Urea Nitrogen 41 mg/dL (7-18) H Creatinine 7.5 MG/DL (0.55-1.30) H Estimat Glomerular Filtration Rate 7.5 mL/min (>60) Glucose Level 67 MG/DL (74-106) L Hemoglobin A1c 5.5 % (4.3-6.0) Lactic Acid Level 1.20 mmol/L (0.4-2.0) Uric Acid 9.2 MG/DL (2.6-7.2) H Calcium Level 7.6 MG/DL (8.5-10.1) L Phosphorus Level 7.4 MG/DL (2.5-4.9) H Magnesium Level 2.6 MG/DL (1.8-2.4) H Iron Level 18 ug/dL (50-175) L Total Iron Binding Capacity 134 ug/dL (250-450) L Percent Iron Saturation 13 % (15-50) L Unsaturated Iron Binding 116 ug/dL (112-346) Ferritin 672 NG/ML (8-388) H Total Bilirubin 0.4 MG/DL (0.2-1.0) Gamma Glutamyl Transpeptidase 34 U/L (5-85) Aspartate Amino Transf (AST/SGOT) 18 U/L (15-37) Alanine Aminotransferase (ALT/SGPT) 11 U/L (12-78) L Alkaline Phosphatase 61 U/L (46-116) Ammonia 34 umol/L (11-32) H Troponin I 0.003 ng/mL (0.000-0.056) C-Reactive Protein, Quantitative 14.6 mg/dL (0.00-0.90) H Pro-B-Type Natriuretic Peptide > 74681 pg/mL (0-125) H Total Protein 7.0 G/DL (6.4-8.2) Albumin 2.5 G/DL (3.4-5.0) L Globulin 4.5 g/dL Albumin/Globulin Ratio 0.6 (1.0-2.7) L Triglycerides Level 92 MG/DL (30-150) Cholesterol Level 90 MG/DL (< 200) LDL Cholesterol 55 mg/dL (<100) HDL Cholesterol 22 MG/DL (40-60) L Cholesterol/HDL Ratio 4.1 (3.3-4.4) Carcinoembryonic Antigen Pending Vitamin B12 Level 639 PG/ML (193-986) Folate 39.2 NG/ML (8.6-58.9) Thyroid Stimulating Hormone (TSH) 3.089 uiU/mL (0.358-3.740) Free Thyroxine 1.27 NG/DL (0.76-1.46) Plan Problems: (1) Abdominal pain Assessment & Plan: 58 year old male with likely enteritis. afebrile HD stable, labs okay CT noted as below abd exam fairly benign constipated okay for diet bowel regimen trend labs iv hydration will follow with serial exams thank you Lack of enteric contrast limits assessment of the GI tract. There is no evidence of colonic diverticulosis or diverticulitis. What is probably a normal appendix is visualized. No small bowel distention. There is questionably minimal wall thickening of left upper quadrant small bowel loops. No free or loculated intraperitoneal gas or fluid is evident. There is bilateral inguinal lymphadenopathy, largest nodes measuring up to 2.5 cm long axis dimension by 1.6 cm short axis dimension. There are also prominent less strikingly enlarged iliac chain and retroperitoneal nodes. There are a few prominent peripancreatic nodes as well. The liver is mildly enlarged. Gallbladder demonstrates no definite gallstones. There is equivocal minimal edema of the gallbladder wall, however. No biliary ductal dilatation. The pancreas is unremarkable. The spleen is upper limits of normal in size. The adrenals are unremarkable. The kidneys are atrophic. No pelvic mass other than the lymphadenopathy. The bladder and prostate are unremarkable. There is fairly extensive vascular calcification. The lung bases demonstrate posterior dependent atelectatic changes. The heart is enlarged. The bones are unremarkable. Impression: Limited assessment of the GI tract, due to lack of enteric contrast demonstration Questionable minimal wall thickening of left upper quadrant small bowel loops, if real could indicate mild enteritis changes. Bilateral inguinal lymphadenopathy, nonspecific as regards etiology, could be reactive, neoplastic, or on the basis of a lymphoproliferative disorder. There are also prominent but not frankly enlarged bilateral iliac chain and retroperitoneal lymph nodes. Mild hepatomegaly Atrophic kidneys, in keeping with stated clinical history of chronic renal disease Cardiomegaly Mason Cruz Apr 06, 2019 14:02
[2019-04-06 16:00] VITALS: BP 131/63
--- NOTE | 2019-04-06 16:11 | General Progress Note ---
Assessment/Plan Status: unchanged Assessment/Plan: GI: Plan Problems: (1) Abdominal pain (2) Enteritis (3) Anemia Plan #Abdominal pain secondary to viral enteritis CT reviewed (04/05/19) >> Questionable minimal wall thickening of left upper quadrant small bowel loops, if real could indicate mild enteritis changes. Bowel rest, maintain n.p.o. plus IV fluids Advance diet as tolerated Zofran PRN for any nausea vomiting Collect stool studies and C. difficile if patient has persistent diarrhea rule out bacterial Pain management We will consider endoscopy if patient has persistent abdominal pain #Anemia most likely secondary to chronic kidney disease anemia work up Obtain occult blood stool to evaluate for any GI bleed monitor H&H, prn transfusions Prophylactic PPI Subjective Allergies: Coded Allergies: No Known Allergies (Unverified , 04/05/19) Subjective c/o (L) subcostal pain no N/V Objective Last 24 Hour Vital Signs Date Time Temp Pulse Resp B/P (MAP) Pulse Ox O2 Delivery O2 Flow Rate FiO2 04/06/19 12:00 98.3 72 17 150/67 (94) 94 04/06/19 09:00 98 152/67 04/06/19 09:00 Room Air 04/06/19 08:00 99.8 98 18 152/67 (95) 99 04/06/19 04:00 98.4 82 20 151/58 (89) 92 04/06/19 00:00 98.6 78 20 141/61 (87) 95 04/05/19 21:00 Room Air 04/05/19 20:40 103 167/87 04/05/19 20:00 97.9 103 24 167/87 (113) 97 04/05/19 16:15 Room Air Intake and Output 04/05/19 04/06/19 19:00 07:00 Output Total 0 ml Balance 0 ml Output Urine Total 0 ml Laboratory Tests 04/06/19 06:30: White Blood Count 7.1, Red Blood Count 2.78L, Hemoglobin 8.9L, Hematocrit 27.0L , Mean Corpuscular Volume 97, Mean Corpuscular Hemoglobin 32.2H, Mean Corpuscular Hemoglobin Concent 33.1, Red Cell Distribution Width 13.0, Platelet Count 185, Mean Platelet Volume 4.4L, Neutrophils (%) (Auto) 60.6, Lymphocytes ( %) (Auto) 15.8L, Monocytes (%) (Auto) 18.8H, Eosinophils (%) (Auto) 3.2H, Basophils (%) (Auto) 1.6, Reticulocyte Count 2.0, Prothrombin Time 11.4, Prothromb Time International Ratio 1.1, Activated Partial Thromboplast Time 33, Sodium Level 135L, Potassium Level 6.5*H, Chloride Level 96L, Carbon Dioxide Level 26, Anion Gap 13, Blood Urea Nitrogen 41H, Creatinine 7.5H, Estimat Glomerular Filtration Rate 7.5, Glucose Level 67L, Hemoglobin A1c 5.5, Lactic Acid Level 1.20, Uric Acid 9.2H, Calcium Level 7.6L, Phosphorus Level 7.4H, Magnesium Level 2.6H, Iron Level 18L, Total Iron Binding Capacity 134L, Percent Iron Saturation 13L, Unsaturated Iron Binding 116, Ferritin 672H, Total Bilirubin 0.4, Gamma Glutamyl Transpeptidase 34, Aspartate Amino Transf (AST/ SGOT) 18, Alanine Aminotransferase (ALT/SGPT) 11L, Alkaline Phosphatase 61, Ammonia 34H, Troponin I 0.003, C-Reactive Protein, Quantitative 14.6H, Pro-B- Type Natriuretic Peptide > 46455Y, Total Protein 7.0, Albumin 2.5L, Globulin 4.5 , Albumin/Globulin Ratio 0.6L, Triglycerides Level 92, Cholesterol Level 90, LDL Cholesterol 55, HDL Cholesterol 22L, Cholesterol/HDL Ratio 4.1, Carcinoembryonic Antigen [Pending], Vitamin B12 Level 639, Folate 39.2, Thyroid Stimulating Hormone (TSH) 3.089, Free Thyroxine 1.27, Hepatitis B Surface Antigen [Pending] Height (Feet): 5 Height (Inches): 6.00 Weight (Pounds): 149 Objective Chronically ill appering NCAT supple CTA RR abd soft ND, Mild LUQ and RUQ TTP no edema Dari Leger MD Apr 06, 2019 16:11
--- NOTE | 2019-04-06 19:07 | NUR ---
HAND-OFF: Report given to JESI Nash.
--- NOTE | 2019-04-06 19:57 | NUR ---
NURSE NOTES: Patient is in bed. On room air with no signs of distress or SOB. IV intact and patent. EZRA shunt noted. Bed locked and in lowest position. Call light in reach. Will continue to monitor.
[2019-04-06 20:00] VITALS: BP 137/61
--- NOTE | 2019-04-06 22:30 | NUR ---
NURSE NOTES: Patient finished with Hemodialysis; informed by HD nurse that 1 liter was removed for patient. Will continue to monitor.
[2019-04-06] MEDS: Carvedilol 25mg Tab ORAL SCH (22:35)
[2019-04-07] VITALS: BP 151/49
[2019-04-07 04:00] VITALS: BP 163/103
--- NOTE | 2019-04-07 04:58 | NUR ---
NURSE NOTES: Notified by Carlos in lab that patient is positive for MRSA nares. Left message with Dr. Ricks.
--- NOTE | 2019-04-07 05:27 | NUR ---
NURSE NOTES: Left message with Dr. Perdomo regarding MRSA - per Dr. Ricks's request.
--- NOTE | 2019-04-07 07:18 | NUR ---
NURSE NOTES: Received report from JESI Nash. Patient in bed. On room air, no signs of distress or labored breathing. IV intact, patent, and saline locked. Bed in lowest position with call light in reach. Will continue with plan of care.
--- NOTE | 2019-04-07 07:24 | NUR ---
HAND-OFF: Report given to JESI Cruz.
--- NOTE | 2019-04-07 07:39 | General Progress Note ---
Assessment/Plan Status: unchanged Assessment/Plan: GI: Plan Problems: (1) Abdominal pain (2) Enteritis (3) Anemia Plan #Abdominal pain secondary to viral enteritis CT reviewed (04/05/19) >> Questionable minimal wall thickening of left upper quadrant small bowel loops, if real could indicate mild enteritis changes. Bowel rest, maintain n.p.o. plus IV fluids Advance diet as tolerated Zofran PRN for any nausea vomiting Collect stool studies and C. difficile if patient has persistent diarrhea rule out bacterial Pain management We will consider endoscopy if patient has persistent abdominal pain #Anemia most likely secondary to chronic kidney disease anemia work up Obtain occult blood stool to evaluate for any GI bleed monitor H&H, prn transfusions Prophylactic PPI Subjective Allergies: Coded Allergies: No Known Allergies (Unverified , 04/05/19) Subjective Still with epigastric / subcostal pain Objective Last 24 Hour Vital Signs Date Time Temp Pulse Resp B/P (MAP) Pulse Ox O2 Delivery O2 Flow Rate FiO2 04/07/19 04:18 163/103 04/07/19 04:00 98.6 77 23 163/103 (123) 96 04/07/19 00:00 97.4 74 19 151/49 (83) 95 04/06/19 22:35 79 170/58 04/06/19 20:24 Room Air 04/06/19 20:00 97.3 77 20 137/61 (86) 98 04/06/19 16:00 98.8 69 19 131/63 (85) 97 04/06/19 12:00 98.3 72 17 150/67 (94) 94 04/06/19 09:00 98 152/67 04/06/19 09:00 Room Air 04/06/19 08:00 99.8 98 18 152/67 (95) 99 Intake and Output 04/06/19 04/07/19 19:00 07:00 Intake Total 1400 ml Output Total 25 ml Balance 1375 ml Intake Oral 400 ml Hemodialysis 1000 ml Output Urine Total 25 ml # Voids 2 # Bowel Movements 2 Laboratory Tests 04/06/19 18:00: Stool Occult Blood [Pending] Height (Feet): 5 Height (Inches): 6.00 Weight (Pounds): 148 Objective Chronically ill appering NCAT supple CTA RR abd soft ND, Mild LUQ and RUQ TTP no edema Dari Leger MD Apr 07, 2019 07:39
[2019-04-07 08:00] VITALS: BP 150/92
[2019-04-07] MEDS: Carvedilol 25mg Tab ORAL SCH ×2 (08:39→21:01)
[2019-04-07] MEDS: Heparin 5000 units/ml inj SUBQ SCH ×2 (08:41→21:00)
--- NOTE | 2019-04-07 08:45 | General Progress Note ---
Assessment/Plan Problem List: (1) Anemia ICD Codes: D64.9 - Anemia, unspecified SNOMED: 058324438 (2) Dermatitis ICD Codes: L30.9 - Dermatitis, unspecified SNOMED: 972873348 (3) Enteritis ICD Codes: K52.9 - Noninfective gastroenteritis and colitis, unspecified SNOMED: 10301526 (4) Abdominal pain ICD Codes: R10.9 - Unspecified abdominal pain SNOMED: 34996735 Qualifiers: Qualified Codes: R10.12 - Left upper quadrant pain (5) End stage renal disease on dialysis ICD Codes: N18.6 - End stage renal disease; Z99.2 - Dependence on renal dialysis SNOMED: 699821255 Status: stable, progressing Assessment/Plan: pt diet dialysis prn gi f/u cbc bmp am dc plan snf Subjective Constitutional: Reports: weakness Allergies: Coded Allergies: No Known Allergies (Unverified , 04/05/19) All Systems: reviewed and negative except above Subjective sleepy calm Objective Last 24 Hour Vital Signs Date Time Temp Pulse Resp B/P (MAP) Pulse Ox O2 Delivery O2 Flow Rate FiO2 04/07/19 08:39 80 150/92 04/07/19 08:00 98.4 80 20 150/92 (111) 97 04/07/19 04:18 163/103 04/07/19 04:00 98.6 77 23 163/103 (123) 96 04/07/19 00:00 97.4 74 19 151/49 (83) 95 04/06/19 22:35 79 170/58 04/06/19 20:24 Room Air 04/06/19 20:00 97.3 77 20 137/61 (86) 98 04/06/19 16:00 98.8 69 19 131/63 (85) 97 04/06/19 12:00 98.3 72 17 150/67 (94) 94 04/06/19 09:00 98 152/67 04/06/19 09:00 Room Air Intake and Output 04/06/19 04/07/19 19:00 07:00 Intake Total 1400 ml Output Total 25 ml Balance 1375 ml Intake Oral 400 ml Hemodialysis 1000 ml Output Urine Total 25 ml # Voids 2 # Bowel Movements 2 Laboratory Tests 04/06/19 18:00: Stool Occult Blood [Pending] Height (Feet): 5 Height (Inches): 6.00 Weight (Pounds): 148 General Appearance: lethargic EENT: normal ENT inspection Neck: normal alignment Cardiovascular: normal peripheral pulses, normal rate, regular rhythm Respiratory/Chest: chest wall non-tender, lungs clear, normal breath sounds Abdomen: normal bowel sounds, non tender, soft Extremities: normal inspection Edema: no edema noted Arm (L), no edema noted Arm (R), no edema noted Leg (L), no edema noted Leg (R), no edema noted Pedal (L), no edema noted Pedal (R), no edema noted Generalized Neurologic: motor weakness Skin: normal pigmentation, warm/dry Shiraz Ricks DO Apr 07, 2019 08:45
[2019-04-07] MEDS: Docusate 100mg cap ORAL SCH ×3 (08:48→18:00)
--- NOTE | 2019-04-07 10:35 | NUR ---
NURSE NOTES: Notified Dr. King in person that patient refused blood draw. Also informed MD that patient refused Kayexalate yesterday. Charge nurse aware of notification.
--- NOTE | 2019-04-07 11:37 | Nephrology Progress Note ---
Assessment/Plan Problem List: (1) End stage renal disease on dialysis (2) Dermatitis (3) Abdominal pain (4) Hypertensive kidney disease (5) Anemia in chronic kidney disease (CKD) Assessment ESRD- high K today Abdominal pain- Scaly skin lesions- Anemia of CKD HTN Plan HD in am Venofer and Epogen adjust BP meds 2D echo EjFx 60% Kayexelate PO- refused Renal diet when Ok to start PO by GI Phos binders per orders Subjective ROS Limited/Unobtainable: No Constitutional: Reports: malaise Objective Objective Last 24 Hour Vital Signs Date Time Temp Pulse Resp B/P (MAP) Pulse Ox O2 Delivery O2 Flow Rate FiO2 04/07/19 08:39 80 150/92 04/07/19 08:00 98.4 80 20 150/92 (111) 97 04/07/19 04:18 163/103 04/07/19 04:00 98.6 77 23 163/103 (123) 96 04/07/19 00:00 97.4 74 19 151/49 (83) 95 04/06/19 22:35 79 170/58 04/06/19 20:24 Room Air 04/06/19 20:00 97.3 77 20 137/61 (86) 98 04/06/19 16:00 98.8 69 19 131/63 (85) 97 04/06/19 12:00 98.3 72 17 150/67 (94) 94 Intake and Output 04/06/19 04/07/19 19:00 07:00 Intake Total 1400 ml Output Total 25 ml Balance 1375 ml Intake Oral 400 ml Hemodialysis 1000 ml Output Urine Total 25 ml # Voids 2 # Bowel Movements 2 Laboratory Tests 04/06/19 18:00: Stool Occult Blood [Pending] Refused blood work today. Height (Feet): 5 Height (Inches): 6.00 Weight (Pounds): 149 General Appearance: agitated - at times, other - refusing meds and blood work Cardiovascular: normal rate Respiratory/Chest: decreased breath sounds Abdomen: soft Mayank King MD Apr 07, 2019 11:37
[2019-04-07 12:00] VITALS: BP 122/49
--- NOTE | 2019-04-07 14:00 | NUR ---
NURSE NOTES: Patient refused medications. When RN tried to educate patient became aggressive and combative, yelling at RN. Charge nurse aware.
--- NOTE | 2019-04-07 14:23 | NUR ---
PT Note Attempted to see patient for eval/tx again but patient adamantly refused. RN was notified.
[2019-04-07 16:00] VITALS: BP 144/88
--- NOTE | 2019-04-07 18:59 | NUR ---
HAND-OFF: Report given to JESI Nash.
[2019-04-07 20:00] VITALS: BP 155/53
[2019-04-08 04:00] VITALS: BP 149/69
--- NOTE | 2019-04-08 07:57 | NUR ---
HAND-OFF: Report given to JESI Castillo.
--- NOTE | 2019-04-08 08:17 | NUR ---
NURSE NOTES: Received patient in bed awake. No SOB or acute distress. IV line intact and patent. On right arm precaution due to HD shunt. For HD today as per night RN. HOB elevated. Bed locked in lowest position. Call light within reach. Will continue plan of care.
[2019-04-08 08:53] LABS: BASOPHILS % (AUTO) 1.3 % (0.0-2.0); EOSINOPHILS % (AUTO) 12.7 % (0.0-3.0); HEMATOCRIT 25.9 % (42.0-52.0); HEMOGLOBIN 8.9 G/DL (14.2-18.0); LYMPHOCYTES % (AUTO) 15.1 % (20.0-45.0); MEAN CORPUSCULAR VOLUME 94 FL (80-99); NEUTROPHILS % (AUTO) 54.9 % (45.0-75.0); PLATELET COUNT 216 K/UL (150-450); RED BLOOD COUNT 2.75 M/UL (4.70-6.10); RED CELL DISTRIBUTION WIDTH 12.5 % (11.6-14.8); WHITE BLOOD COUNT 6.7 K/UL (4.8-10.8)
[2019-04-08] MEDS: Carvedilol 25mg Tab ORAL SCH ×2 (09:00→21:00)
[2019-04-08] MEDS: Heparin 5000 units/ml inj SUBQ SCH ×3 (09:00→21:00)
[2019-04-08] MEDS: Docusate 100mg cap ORAL SCH ×5 (09:00→17:49)
[2019-04-08 09:16] LABS: ANION GAP 13 mmol/L (5-15); BLOOD UREA NITROGEN 35 mg/dL (7-18); CALCIUM 7.6 MG/DL (8.5-10.1); CARBON DIOXIDE 23 MMOL/L (21-32); CHLORIDE 100 MMOL/L (98-107); POTASSIUM 5.4 MMOL/L (3.5-5.1); SODIUM 136 MMOL/L (136-145)
--- NOTE | 2019-04-08 09:34 | Nephrology Progress Note ---
Assessment/Plan Problem List: (1) End stage renal disease on dialysis (2) Dermatitis (3) Abdominal pain (4) Hypertensive kidney disease (5) Anemia in chronic kidney disease (CKD) Assessment ESRD- high K today Abdominal pain- Scaly skin lesions- Anemia of CKD HTN Plan HD 04/07 Adjust blood pressure medication Venofer and Epogen 2D echo EjFx 60% Renal diet when Ok to start PO by GI Phos binders per orders Subjective ROS Limited/Unobtainable: No Constitutional: Reports: malaise Objective Objective Last 24 Hour Vital Signs Date Time Temp Pulse Resp B/P (MAP) Pulse Ox O2 Delivery O2 Flow Rate FiO2 04/08/19 04:00 98.0 79 18 149/69 (95) 97 04/07/19 21:01 63 155/53 04/07/19 20:33 Room Air 04/07/19 20:00 97.9 63 19 155/53 (87) 97 04/07/19 16:00 98.5 86 19 144/88 (106) 98 04/07/19 12:00 97.8 66 20 122/49 (73) 97 Intake and Output 04/07/19 04/08/19 19:00 07:00 Intake Total 1000 ml Balance 1000 ml Intake Oral 1000 ml # Voids 8 # Bowel Movements 1 2 Laboratory Tests 04/08/19 08:30: White Blood Count 6.7, Red Blood Count 2.75L, Hemoglobin 8.9L, Hematocrit 25.9L , Mean Corpuscular Volume 94, Mean Corpuscular Hemoglobin 32.5H, Mean Corpuscular Hemoglobin Concent 34.4, Red Cell Distribution Width 12.5, Platelet Count 216, Mean Platelet Volume 4.4L, Neutrophils (%) (Auto) 54.9, Lymphocytes ( %) (Auto) 15.1L, Monocytes (%) (Auto) 16.0H, Eosinophils (%) (Auto) 12.7H, Basophils (%) (Auto) 1.3, Sodium Level 136, Potassium Level 5.4H, Chloride Level 100, Carbon Dioxide Level 23, Anion Gap 13, Blood Urea Nitrogen 35H, Creatinine 8.0H, Estimat Glomerular Filtration Rate 7.0, Glucose Level 78, Calcium Level 7.6L Height (Feet): 5 Height (Inches): 6.00 Weight (Pounds): 149 General Appearance: agitated - AT TIMES Respiratory/Chest: decreased breath sounds Abdomen: distended Mayank King MD Apr 08, 2019 09:34
--- NOTE | 2019-04-08 09:47 | General Progress Note ---
Assessment/Plan Problem List: (1) Anemia ICD Codes: D64.9 - Anemia, unspecified SNOMED: 196594918 (2) Dermatitis ICD Codes: L30.9 - Dermatitis, unspecified SNOMED: 994991521 (3) Enteritis ICD Codes: K52.9 - Noninfective gastroenteritis and colitis, unspecified SNOMED: 36677068 (4) Abdominal pain ICD Codes: R10.9 - Unspecified abdominal pain SNOMED: 51962998 Qualifiers: Qualified Codes: R10.12 - Left upper quadrant pain (5) End stage renal disease on dialysis ICD Codes: N18.6 - End stage renal disease; Z99.2 - Dependence on renal dialysis SNOMED: 059606865 Status: stable, progressing Assessment/Plan: pt diet dialysis prn gi f/u cbc bmp am dc if clear Subjective Constitutional: Reports: weakness Allergies: Coded Allergies: No Known Allergies (Unverified , 04/05/19) All Systems: reviewed and negative except above Subjective sleepy calm Objective Last 24 Hour Vital Signs Date Time Temp Pulse Resp B/P (MAP) Pulse Ox O2 Delivery O2 Flow Rate FiO2 04/08/19 04:00 98.0 79 18 149/69 (95) 97 04/07/19 21:01 63 155/53 04/07/19 20:33 Room Air 04/07/19 20:00 97.9 63 19 155/53 (87) 97 04/07/19 16:00 98.5 86 19 144/88 (106) 98 04/07/19 12:00 97.8 66 20 122/49 (73) 97 Intake and Output 04/07/19 04/08/19 19:00 07:00 Intake Total 1000 ml Balance 1000 ml Intake Oral 1000 ml # Voids 8 # Bowel Movements 1 2 Laboratory Tests 04/08/19 08:30: White Blood Count 6.7, Red Blood Count 2.75L, Hemoglobin 8.9L, Hematocrit 25.9L , Mean Corpuscular Volume 94, Mean Corpuscular Hemoglobin 32.5H, Mean Corpuscular Hemoglobin Concent 34.4, Red Cell Distribution Width 12.5, Platelet Count 216, Mean Platelet Volume 4.4L, Neutrophils (%) (Auto) 54.9, Lymphocytes ( %) (Auto) 15.1L, Monocytes (%) (Auto) 16.0H, Eosinophils (%) (Auto) 12.7H, Basophils (%) (Auto) 1.3, Sodium Level 136, Potassium Level 5.4H, Chloride Level 100, Carbon Dioxide Level 23, Anion Gap 13, Blood Urea Nitrogen 35H, Creatinine 8.0H, Estimat Glomerular Filtration Rate 7.0, Glucose Level 78, Uric Acid [Pending], Calcium Level 7.6L, Phosphorus Level [Pending], Magnesium Level [Pending], Total Bilirubin [Pending], Direct Bilirubin [Pending], Aspartate Amino Transf (AST/SGOT) [Pending], Alanine Aminotransferase (ALT/SGPT) [Pending] , Alkaline Phosphatase [Pending], C-Reactive Protein, Quantitative [Pending], Pro-B-Type Natriuretic Peptide [Pending], Total Protein [Pending], Albumin [ Pending] Height (Feet): 5 Height (Inches): 6.00 Weight (Pounds): 149 General Appearance: lethargic EENT: normal ENT inspection Neck: normal alignment Cardiovascular: normal peripheral pulses, normal rate, regular rhythm Respiratory/Chest: chest wall non-tender, lungs clear, normal breath sounds Abdomen: normal bowel sounds, non tender, soft Extremities: normal inspection Edema: no edema noted Arm (L), no edema noted Arm (R), no edema noted Leg (L), no edema noted Leg (R), no edema noted Pedal (L), no edema noted Pedal (R), no edema noted Generalized Neurologic: motor weakness Skin: normal pigmentation, warm/dry Shiraz Ricks DO Apr 08, 2019 09:47
[2019-04-08 10:00] LABS: ALANINE AMINOTRANSFERASE 13 U/L (12-78); ALBUMIN 2.3 G/DL (3.4-5.0); ALKALINE PHOSPHATASE 58 U/L (46-116); ASPARTATE AMINO TRANSFERASE 15 U/L (15-37); BILIRUBIN,DIRECT < 0.1 MG/DL (0.0-0.3); BILIRUBIN,TOTAL 0.3 MG/DL (0.2-1.0); PHOSPHORUS 7.9 MG/DL (2.5-4.9)
--- NOTE | 2019-04-08 10:30 | NUR ---
P.T Note: P.T consult received . P.T evaluation attempted however pt adamantly refused to participate despite encouragement. RN aware/notified.
--- NOTE | 2019-04-08 11:41 | Surgery Progress Note ---
Surgery Progress Note Subjective Additional Comments no acute events exam stable more alert and fully responsive now with sentences transition social worker at bedside discussed care plan Objective Last 24 Hour Vital Signs Date Time Temp Pulse Resp B/P (MAP) Pulse Ox O2 Delivery O2 Flow Rate FiO2 04/08/19 04:00 98.0 79 18 149/69 (95) 97 04/07/19 21:01 63 155/53 04/07/19 20:33 Room Air 04/07/19 20:00 97.9 63 19 155/53 (87) 97 04/07/19 16:00 98.5 86 19 144/88 (106) 98 04/07/19 12:00 97.8 66 20 122/49 (73) 97 I&O Intake and Output 04/07/19 04/08/19 19:00 07:00 Intake Total 1000 ml Balance 1000 ml Intake Oral 1000 ml # Voids 8 # Bowel Movements 1 2 Dressing: dry Wound: clean Cardiovascular: RSR Respiratory: clear Abdomen: soft, non-tender, present bowel sounds Extremities: no cyanosis, other Laboratory Tests Test 04/08/19 08:30 White Blood Count 6.7 K/UL (4.8-10.8) Red Blood Count 2.75 M/UL (4.70-6.10) L Hemoglobin 8.9 G/DL (14.2-18.0) L Hematocrit 25.9 % (42.0-52.0) L Mean Corpuscular Volume 94 FL (80-99) Mean Corpuscular Hemoglobin 32.5 PG (27.0-31.0) H Mean Corpuscular Hemoglobin Concent 34.4 G/DL (32.0-36.0) Red Cell Distribution Width 12.5 % (11.6-14.8) Platelet Count 216 K/UL (150-450) Mean Platelet Volume 4.4 FL (6.5-10.1) L Neutrophils (%) (Auto) 54.9 % (45.0-75.0) Lymphocytes (%) (Auto) 15.1 % (20.0-45.0) L Monocytes (%) (Auto) 16.0 % (1.0-10.0) H Eosinophils (%) (Auto) 12.7 % (0.0-3.0) H Basophils (%) (Auto) 1.3 % (0.0-2.0) Sodium Level 136 MMOL/L (136-145) Potassium Level 5.4 MMOL/L (3.5-5.1) H Chloride Level 100 MMOL/L (98-107) Carbon Dioxide Level 23 MMOL/L (21-32) Anion Gap 13 mmol/L (5-15) Blood Urea Nitrogen 35 mg/dL (7-18) H Creatinine 8.0 MG/DL (0.55-1.30) H Estimat Glomerular Filtration Rate 7.0 mL/min (>60) Glucose Level 78 MG/DL (74-106) Uric Acid 8.9 MG/DL (2.6-7.2) H Calcium Level 7.6 MG/DL (8.5-10.1) L Phosphorus Level 7.9 MG/DL (2.5-4.9) H Magnesium Level 2.5 MG/DL (1.8-2.4) H Total Bilirubin 0.3 MG/DL (0.2-1.0) Direct Bilirubin < 0.1 MG/DL (0.0-0.3) Aspartate Amino Transf (AST/SGOT) 15 U/L (15-37) Alanine Aminotransferase (ALT/SGPT) 13 U/L (12-78) Alkaline Phosphatase 58 U/L (46-116) C-Reactive Protein, Quantitative 15.8 mg/dL (0.00-0.90) H Pro-B-Type Natriuretic Peptide > 13333 pg/mL (0-125) H Total Protein 6.5 G/DL (6.4-8.2) Albumin 2.3 G/DL (3.4-5.0) L Plan Problems: (1) Abdominal pain Assessment & Plan: 58 year old male with likely enteritis. afebrile HD stable, labs okay CT noted as below abd exam fairly benign constipated okay for diet bowel regimen trend labs iv hydration improving overall hydrated now labs noted dry skin on face, scalp, upper extremities resolved. lower extremity scaly skin, cont skin cream will follow with serial exams thank you Lack of enteric contrast limits assessment of the GI tract. There is no evidence of colonic diverticulosis or diverticulitis. What is probably a normal appendix is visualized. No small bowel distention. There is questionably minimal wall thickening of left upper quadrant small bowel loops. No free or loculated intraperitoneal gas or fluid is evident. There is bilateral inguinal lymphadenopathy, largest nodes measuring up to 2.5 cm long axis dimension by 1.6 cm short axis dimension. There are also prominent less strikingly enlarged iliac chain and retroperitoneal nodes. There are a few prominent peripancreatic nodes as well. The liver is mildly enlarged. Gallbladder demonstrates no definite gallstones. There is equivocal minimal edema of the gallbladder wall, however. No biliary ductal dilatation. The pancreas is unremarkable. The spleen is upper limits of normal in size. The adrenals are unremarkable. The kidneys are atrophic. No pelvic mass other than the lymphadenopathy. The bladder and prostate are unremarkable. There is fairly extensive vascular calcification. The lung bases demonstrate posterior dependent atelectatic changes. The heart is enlarged. The bones are unremarkable. Impression: Limited assessment of the GI tract, due to lack of enteric contrast demonstration Questionable minimal wall thickening of left upper quadrant small bowel loops, if real could indicate mild enteritis changes. Bilateral inguinal lymphadenopathy, nonspecific as regards etiology, could be reactive, neoplastic, or on the basis of a lymphoproliferative disorder. There are also prominent but not frankly enlarged bilateral iliac chain and retroperitoneal lymph nodes. Mild hepatomegaly Atrophic kidneys, in keeping with stated clinical history of chronic renal disease Cardiomegaly Mason Cruz Apr 08, 2019 11:41
[2019-04-08 12:00] VITALS: BP 144/59
--- NOTE | 2019-04-08 12:17 | NUR ---
NURSE NOTES: Patient ok to DC as per Dr Novak.
--- NOTE | 2019-04-08 12:38 | General Progress Note ---
Assessment/Plan Status: stable, progressing Assessment/Plan: Progress Note date and time: 04/07/19 0739 Assessment/Plan Status: unchanged Assessment/Plan: GI: Plan Problems: (1) Abdominal pain (2) Enteritis (3) Anemia Plan #Abdominal pain secondary to viral enteritis CT reviewed (04/05/19) >> Questionable minimal wall thickening of left upper quadrant small bowel loops, if real could indicate mild enteritis changes. Bowel rest, maintain n.p.o. plus IV fluids Advance diet as tolerated Zofran PRN for any nausea vomiting Collect stool studies and C. difficile if patient has persistent diarrhea rule out bacterial Pain management #Anemia most likely secondary to chronic kidney disease anemia work up Obtain occult blood stool to evaluate for any GI bleed>>> neg monitor H&H, prn transfusions Prophylactic PPI Subjective ROS Limited/Unobtainable: Yes Allergies: Coded Allergies: No Known Allergies (Unverified , 04/05/19) Objective Last 24 Hour Vital Signs Date Time Temp Pulse Resp B/P (MAP) Pulse Ox O2 Delivery O2 Flow Rate FiO2 04/08/19 12:00 97.8 64 20 144/59 (87) 94 04/08/19 04:00 98.0 79 18 149/69 (95) 97 04/07/19 21:01 63 155/53 04/07/19 20:33 Room Air 04/07/19 20:00 97.9 63 19 155/53 (87) 97 04/07/19 16:00 98.5 86 19 144/88 (106) 98 Intake and Output 04/07/19 04/08/19 19:00 07:00 Intake Total 1000 ml Balance 1000 ml Intake Oral 1000 ml # Voids 8 # Bowel Movements 1 2 Laboratory Tests 04/08/19 08:30: White Blood Count 6.7, Red Blood Count 2.75L, Hemoglobin 8.9L, Hematocrit 25.9L , Mean Corpuscular Volume 94, Mean Corpuscular Hemoglobin 32.5H, Mean Corpuscular Hemoglobin Concent 34.4, Red Cell Distribution Width 12.5, Platelet Count 216, Mean Platelet Volume 4.4L, Neutrophils (%) (Auto) 54.9, Lymphocytes ( %) (Auto) 15.1L, Monocytes (%) (Auto) 16.0H, Eosinophils (%) (Auto) 12.7H, Basophils (%) (Auto) 1.3, Sodium Level 136, Potassium Level 5.4H, Chloride Level 100, Carbon Dioxide Level 23, Anion Gap 13, Blood Urea Nitrogen 35H, Creatinine 8.0H, Estimat Glomerular Filtration Rate 7.0, Glucose Level 78, Uric Acid 8.9H, Calcium Level 7.6L, Phosphorus Level 7.9H, Magnesium Level 2.5H, Total Bilirubin 0.3, Direct Bilirubin < 0.1, Aspartate Amino Transf (AST/SGOT) 15, Alanine Aminotransferase (ALT/SGPT) 13, Alkaline Phosphatase 58, C-Reactive Protein, Quantitative 15.8H, Pro-B-Type Natriuretic Peptide > 72062C, Total Protein 6.5, Albumin 2.3L Height (Feet): 5 Height (Inches): 6.00 Weight (Pounds): 149 General Appearance: alert EENT: normal ENT inspection Neck: supple Cardiovascular: normal rate Respiratory/Chest: decreased breath sounds Abdomen: normal bowel sounds, non tender, soft Extremities: non-tender Luis Manuel Novak MD Apr 08, 2019 12:38
--- NOTE | 2019-04-08 13:30 | NUR ---
*-*DISCHARGE PLANNING*-* PATIENT HAS BEEN REFERRED BACK TO: [facility] P: [phone] F: [phone] *-*CLINICALS FAXED*-*
--- NOTE | 2019-04-08 13:34 | Infectious Diseases Prog Note ---
Subjective Allergies: Coded Allergies: No Known Allergies (Unverified , 04/05/19) Objective Vital Signs Last 24 Hour Vital Signs Date Time Temp Pulse Resp B/P (MAP) Pulse Ox O2 Delivery O2 Flow Rate FiO2 04/08/19 12:00 97.8 64 20 144/59 (87) 94 04/08/19 09:00 Room Air 04/08/19 04:00 98.0 79 18 149/69 (95) 97 04/07/19 21:01 63 155/53 04/07/19 20:33 Room Air 04/07/19 20:00 97.9 63 19 155/53 (87) 97 04/07/19 16:00 98.5 86 19 144/88 (106) 98 Height (Feet): 5 Height (Inches): 6.00 Weight (Pounds): 149 Microbiology Date/Time Source Procedure Growth Status 04/05/19 15:05 Nasal Nares MRSA Culture - Final Staphylococcus Aureus - Mrsa Complete 04/05/19 15:05 Rectum VRE Culture - Final NO VANCOMYCIN RESISTANT ENTEROCOCCUS ... Complete 04/05/19 15:05 Rectum - Final NO CARBAPENEM-RESISTANT ENTEROBACTERI... Complete Laboratory Tests Test 04/08/19 08:30 White Blood Count 6.7 K/UL (4.8-10.8) Red Blood Count 2.75 M/UL (4.70-6.10) L Hemoglobin 8.9 G/DL (14.2-18.0) L Hematocrit 25.9 % (42.0-52.0) L Mean Corpuscular Volume 94 FL (80-99) Mean Corpuscular Hemoglobin 32.5 PG (27.0-31.0) H Mean Corpuscular Hemoglobin Concent 34.4 G/DL (32.0-36.0) Red Cell Distribution Width 12.5 % (11.6-14.8) Platelet Count 216 K/UL (150-450) Mean Platelet Volume 4.4 FL (6.5-10.1) L Neutrophils (%) (Auto) 54.9 % (45.0-75.0) Lymphocytes (%) (Auto) 15.1 % (20.0-45.0) L Monocytes (%) (Auto) 16.0 % (1.0-10.0) H Eosinophils (%) (Auto) 12.7 % (0.0-3.0) H Basophils (%) (Auto) 1.3 % (0.0-2.0) Sodium Level 136 MMOL/L (136-145) Potassium Level 5.4 MMOL/L (3.5-5.1) H Chloride Level 100 MMOL/L (98-107) Carbon Dioxide Level 23 MMOL/L (21-32) Anion Gap 13 mmol/L (5-15) Blood Urea Nitrogen 35 mg/dL (7-18) H Creatinine 8.0 MG/DL (0.55-1.30) H Estimat Glomerular Filtration Rate 7.0 mL/min (>60) Glucose Level 78 MG/DL (74-106) Uric Acid 8.9 MG/DL (2.6-7.2) H Calcium Level 7.6 MG/DL (8.5-10.1) L Phosphorus Level 7.9 MG/DL (2.5-4.9) H Magnesium Level 2.5 MG/DL (1.8-2.4) H Total Bilirubin 0.3 MG/DL (0.2-1.0) Direct Bilirubin < 0.1 MG/DL (0.0-0.3) Aspartate Amino Transf (AST/SGOT) 15 U/L (15-37) Alanine Aminotransferase (ALT/SGPT) 13 U/L (12-78) Alkaline Phosphatase 58 U/L (46-116) C-Reactive Protein, Quantitative 15.8 mg/dL (0.00-0.90) H Pro-B-Type Natriuretic Peptide > 82975 pg/mL (0-125) H Total Protein 6.5 G/DL (6.4-8.2) Albumin 2.3 G/DL (3.4-5.0) L Current Medications Medications (Trade) Dose Ordered Sig/Velma Route PRN Reason Start Time Stop Time Status Last Admin Dose Admin Acetaminophen (Tylenol) 650 mg Q4H PRN ORAL Pain Scale (3-5) 04/05/19 13:30 05/05/19 13:29 Carvedilol (Coreg) 25 mg EVERY 12 HOURS ORAL 04/06/19 21:00 05/05/19 20:59 04/07/19 21:01 Clonidine HCl (Catapres Tab) 0.1 mg Q4H PRN ORAL SBP over 160 04/05/19 13:30 05/05/19 13:29 04/07/19 04:18 Diphenhydramine HCl (Benadryl) 50 mg Q6H PRN ORAL Itching 04/07/19 08:30 05/07/19 08:29 04/07/19 18:10 Docusate Sodium (Colace) 100 mg THREE TIMES A DAY ORAL 04/05/19 18:00 05/05/19 17:59 04/06/19 14:04 Epoetin Shlomo (Procrit (for ESRD on dialysis)) 10,000 units MON-MON-MON SUBQ 04/08/19 21:00 05/08/19 20:59 Heparin Sodium (Porcine) (Heparin 5000 units/ml) 5,000 units EVERY 12 HOURS SUBQ 04/05/19 21:00 05/05/19 20:59 04/07/19 08:41 Iron Sucrose 100 mg/Sodium Chloride 55 ml @ 200 mls/hr BEDTIME IV 04/06/19 21:00 04/15/19 21:17 04/07/19 21:03 Pantoprazole (Protonix) 40 mg BID ORAL 04/05/19 18:00 05/06/19 08:59 04/07/19 18:10 Sevelamer Carbonate (Renvela) 800 mg THREE TIMES A DAY ORAL 04/06/19 13:00 05/06/19 12:59 04/07/19 18:10 Tomy Perdomo MD Apr 08, 2019 13:34
--- NOTE | 2019-04-08 13:53 | NUR ---
*-*DISCHARGE PLANNED*-* PATIENT HAS BEEN ACCEPTED BACK TO: [facility] P: [phone] F: [phone]
--- NOTE | 2019-04-08 13:54 | NUR ---
*-*DISCHARGE PLANNED*-* PATIENT HAS BEEN ACCEPTED BACK TO: [facility] P: [phone] F: [phone] #14.C [facility] S/W TY LOPEZ 3:15PM/1515PM
--- NOTE | 2019-04-08 13:58 | NUR ---
*-*DISCHARGE PLANNED*-* PATIENT IS BEING DISCHARGED BACK TO: [facility] P: [phone] F: [phone] #14.C [facility] TY LOPEZ 3:15PM/1515PM
--- NOTE | 2019-04-08 14:19 | NUR ---
NURSE NOTES: Patient has discharge orders, but Head Pastry Chef Melony from [facility] says he cannot go back to [facility]. MARIZA Ty to talk to MARIZA Briseno requesting patient to be placed in [facility]. MARIZA Ty phone nbr [phone]. Patient has outside PMD, Dr. Hwang. MARIZA Ty wants to involve Dr Hwang with patient care.
--- NOTE | 2019-04-08 15:44 | Infectious Diseases Prog Note ---
Subjective Allergies: Coded Allergies: No Known Allergies (Unverified , 04/05/19) Subjective [id number] Objective Vital Signs Last 24 Hour Vital Signs Date Time Temp Pulse Resp B/P (MAP) Pulse Ox O2 Delivery O2 Flow Rate FiO2 04/08/19 12:00 97.8 64 20 144/59 (87) 94 04/08/19 09:00 Room Air 04/08/19 04:00 98.0 79 18 149/69 (95) 97 04/07/19 21:01 63 155/53 04/07/19 20:33 Room Air 04/07/19 20:00 97.9 63 19 155/53 (87) 97 04/07/19 16:00 98.5 86 19 144/88 (106) 98 Height (Feet): 5 Height (Inches): 6.00 Weight (Pounds): 129 Laboratory Tests Test 04/08/19 08:30 White Blood Count 6.7 K/UL (4.8-10.8) Red Blood Count 2.75 M/UL (4.70-6.10) L Hemoglobin 8.9 G/DL (14.2-18.0) L Hematocrit 25.9 % (42.0-52.0) L Mean Corpuscular Volume 94 FL (80-99) Mean Corpuscular Hemoglobin 32.5 PG (27.0-31.0) H Mean Corpuscular Hemoglobin Concent 34.4 G/DL (32.0-36.0) Red Cell Distribution Width 12.5 % (11.6-14.8) Platelet Count 216 K/UL (150-450) Mean Platelet Volume 4.4 FL (6.5-10.1) L Neutrophils (%) (Auto) 54.9 % (45.0-75.0) Lymphocytes (%) (Auto) 15.1 % (20.0-45.0) L Monocytes (%) (Auto) 16.0 % (1.0-10.0) H Eosinophils (%) (Auto) 12.7 % (0.0-3.0) H Basophils (%) (Auto) 1.3 % (0.0-2.0) Sodium Level 136 MMOL/L (136-145) Potassium Level 5.4 MMOL/L (3.5-5.1) H Chloride Level 100 MMOL/L (98-107) Carbon Dioxide Level 23 MMOL/L (21-32) Anion Gap 13 mmol/L (5-15) Blood Urea Nitrogen 35 mg/dL (7-18) H Creatinine 8.0 MG/DL (0.55-1.30) H Estimat Glomerular Filtration Rate 7.0 mL/min (>60) Glucose Level 78 MG/DL (74-106) Uric Acid 8.9 MG/DL (2.6-7.2) H Calcium Level 7.6 MG/DL (8.5-10.1) L Phosphorus Level 7.9 MG/DL (2.5-4.9) H Magnesium Level 2.5 MG/DL (1.8-2.4) H Total Bilirubin 0.3 MG/DL (0.2-1.0) Direct Bilirubin < 0.1 MG/DL (0.0-0.3) Aspartate Amino Transf (AST/SGOT) 15 U/L (15-37) Alanine Aminotransferase (ALT/SGPT) 13 U/L (12-78) Alkaline Phosphatase 58 U/L (46-116) C-Reactive Protein, Quantitative 15.8 mg/dL (0.00-0.90) H Pro-B-Type Natriuretic Peptide > 36648 pg/mL (0-125) H Total Protein 6.5 G/DL (6.4-8.2) Albumin 2.3 G/DL (3.4-5.0) L Current Medications Medications (Trade) Dose Ordered Sig/Velma Route PRN Reason Start Time Stop Time Status Last Admin Dose Admin Acetaminophen (Tylenol) 650 mg Q4H PRN ORAL Pain Scale (3-5) 04/05/19 13:30 05/05/19 13:29 Carvedilol (Coreg) 25 mg EVERY 12 HOURS ORAL 04/06/19 21:00 05/05/19 20:59 04/07/19 21:01 Clonidine HCl (Catapres Tab) 0.1 mg Q4H PRN ORAL SBP over 160 04/05/19 13:30 05/05/19 13:29 04/07/19 04:18 Diphenhydramine HCl (Benadryl) 50 mg Q6H PRN ORAL Itching 04/07/19 08:30 05/07/19 08:29 04/07/19 18:10 Docusate Sodium (Colace) 100 mg THREE TIMES A DAY ORAL 04/05/19 18:00 05/05/19 17:59 04/06/19 14:04 Epoetin Shlomo (Procrit (for ESRD on dialysis)) 10,000 units MON-MON-MON SUBQ 04/08/19 21:00 05/08/19 20:59 Heparin Sodium (Porcine) (Heparin 5000 units/ml) 5,000 units EVERY 12 HOURS SUBQ 04/05/19 21:00 05/05/19 20:59 04/07/19 08:41 Iron Sucrose 100 mg/Sodium Chloride 55 ml @ 200 mls/hr BEDTIME IV 04/06/19 21:00 04/15/19 21:17 04/07/19 21:03 Pantoprazole (Protonix) 40 mg BID ORAL 04/05/19 18:00 05/06/19 08:59 04/07/19 18:10 Sevelamer Carbonate (Renvela) 800 mg THREE TIMES A DAY ORAL 04/06/19 13:00 05/06/19 12:59 04/07/19 18:10 Tomy Perdomo MD Apr 08, 2019 15:44
[2019-04-08 16:00] VITALS: BP 139/73
--- NOTE | 2019-04-08 19:25 | NUR ---
NURSE NOTES: Received patient in bed. Alert x2-3. Patient is on room air, respirations even and unlabored. Patient denies abdominal pain at this time. IV in the Left forearm saline lock. Right upper arm fistula noted, intact. Bed at the lowest position, 1/2 side rails up, bed locked, call light within reach.
--- NOTE | 2019-04-08 19:30 | NUR ---
HAND-OFF: Report given to
[2019-04-08 20:00] VITALS: BP 146/66
[2019-04-08] MEDS: Epoetin Alfa-EPBX(ESRD on dialysis)10,000 unit/ml vial SUBQ SCH (20:55)
[2019-04-08] MEDS ORDERED: Epogen (for ESRD on dialysis) SUBQ SCH (21:00)
--- NOTE | 2019-04-08 21:00 | NUR ---
NURSE NOTES: Patient refused carvedilol and heparin medications. Patient took the other 9 pm meds. Addendum: 04/08/19 at 2204 by Andrea Johnston RN Educated patient on the use of heparin and carvedilol. Patient still refused but RN convinced patient to take the other meds.
--- NOTE | 2019-04-08 21:15 | Consultation ---
DATE OF CONSULTATION: 04/08/2019 INFECTIOUS DISEASES CONSULTATION CONSULTING PHYSICIAN: Tomy Perdomo M.D REFERRING PHYSICIAN: Shiraz Ricks D.O. REASON FOR CONSULTATION: Evaluation of the patient for gastroenteritis. HISTORY OF PRESENT ILLNESS: The patient is a 58-year-old male with multiple medical problems including diabetes was admitted due to this medical center due to diarrhea. The patient overall is a poor historian. CT scan of the abdomen showed evidence of minimal wall thickening of left upper quadrant small bowel. Infectious Diseases consultation has been requested for further evaluation of the patient and antibiotic management. PAST MEDICAL HISTORY: Significant for: 1. Anemia. 2. COPD. 3. History of end-stage renal disease on hemodialysis. 4. Anemia. ALLERGIES: No known drug allergies. SOCIAL HISTORY: The patient is poor historian. No history however of smoking or alcohol abuse. FAMILY HISTORY: Noncontributory. MEDICATIONS: The patient is off of antibiotics. PHYSICAL EXAMINATION: VITAL SIGNS: Temperature 98 degrees, blood pressure 144/59, pulse 64, respiratory rate 20. HEENT: No pale conjunctivae. No icterus. NECK: No lymphadenopathy. CHEST: Coarse breathing sounds. HEART: S1-S2. ABDOMEN: Soft and nontender. EXTREMITIES: No cyanosis at this time. SKIN: Awake. LABORATORY AND DIAGNOSTIC DATA: White blood cells 6, hemoglobin 8.9, platelet 216. BUN 35, creatinine 8. Hepatitis BS antigen negative. CT of abdomen as mentioned above. Chest x-ray, cardiomegaly. ASSESSMENT: 1. Enteritis/ diarrhea, improved. 2. Normal white blood cells. 3. Afebrile. PLAN: 1. We will monitor the patient off of antibiotics. 2. Monitor CBC. 3. Monitor BMP. 4. If the patient developed fever, we will start the patient on empiric antibiotic and review panculture. 5. We will put the patient on contact isolation due to MRSA colonization. Tomy Perdomo M.D. DR: Maude JOB#: [id number] CC:
[2019-04-09] VITALS: BP 154/71
--- NOTE | 2019-04-09 02:00 | NUR ---
NURSE NOTES: Patient received hemodialysis with VIP. 1 liter removed.
[2019-04-09 04:00] VITALS: BP 143/65
--- NOTE | 2019-04-09 06:00 | NUR ---
NURSE NOTES: Patient refused morning lab draw. Barley Steeper will attempt again at a later time, per Kymberly.
--- NOTE | 2019-04-09 07:13 | NUR ---
HAND-OFF: Report given to Delmar DENNISON.
--- NOTE | 2019-04-09 07:14 | NUR ---
NURSE NOTES: Report received from Shelton DENNISON. Patient is currently asleep, was endorsed that patient is awake and alert x 3 at baseline. Patient on room air, and does not appear to be in respiratory distress. Fistula noted in right upper forearm. Patient to be possibly discharged today. Will continue to follow plan of care.
[2019-04-09 08:00] VITALS: BP 146/71
--- NOTE | 2019-04-09 08:24 | General Progress Note ---
Assessment/Plan Status: stable, progressing Assessment/Plan: Progress Note date and time: 04/07/19 0739 Assessment/Plan Status: unchanged Assessment/Plan: GI: Plan Problems: (1) Abdominal pain (2) Enteritis (3) Anemia Plan #Abdominal pain secondary to viral enteritis CT reviewed (04/05/19) >> Questionable minimal wall thickening of left upper quadrant small bowel loops, if real could indicate mild enteritis changes. Zofran PRN for any nausea vomiting Collect stool studies and C. difficile if patient has persistent diarrhea rule out bacterial Pain management #Anemia most likely secondary to chronic kidney disease anemia work up Obtain occult blood stool to evaluate for any GI bleed>>> neg monitor H&H, prn transfusions Prophylactic PPI Subjective ROS Limited/Unobtainable: Yes Allergies: Coded Allergies: No Known Allergies (Unverified , 04/05/19) Objective Last 24 Hour Vital Signs Date Time Temp Pulse Resp B/P (MAP) Pulse Ox O2 Delivery O2 Flow Rate FiO2 04/09/19 04:00 97.3 72 20 143/65 (91) 100 04/09/19 00:00 97.5 61 20 154/71 (98) 95 04/08/19 21:00 Room Air 04/08/19 20:00 99.5 74 20 146/66 (92) 92 04/08/19 16:00 97.3 69 20 139/73 (95) 94 04/08/19 12:00 97.8 64 20 144/59 (87) 94 04/08/19 09:00 Room Air Intake and Output 04/08/19 04/09/19 19:00 07:00 Intake Total 480 ml 200 ml Balance 480 ml 200 ml Intake Oral 480 ml 200 ml # Voids 3 # Bowel Movements 2 Laboratory Tests 04/08/19 08:30: White Blood Count 6.7, Red Blood Count 2.75L, Hemoglobin 8.9L, Hematocrit 25.9L , Mean Corpuscular Volume 94, Mean Corpuscular Hemoglobin 32.5H, Mean Corpuscular Hemoglobin Concent 34.4, Red Cell Distribution Width 12.5, Platelet Count 216, Mean Platelet Volume 4.4L, Neutrophils (%) (Auto) 54.9, Lymphocytes ( %) (Auto) 15.1L, Monocytes (%) (Auto) 16.0H, Eosinophils (%) (Auto) 12.7H, Basophils (%) (Auto) 1.3, Sodium Level 136, Potassium Level 5.4H, Chloride Level 100, Carbon Dioxide Level 23, Anion Gap 13, Blood Urea Nitrogen 35H, Creatinine 8.0H, Estimat Glomerular Filtration Rate 7.0, Glucose Level 78, Uric Acid 8.9H, Calcium Level 7.6L, Phosphorus Level 7.9H, Magnesium Level 2.5H, Total Bilirubin 0.3, Direct Bilirubin < 0.1, Aspartate Amino Transf (AST/SGOT) 15, Alanine Aminotransferase (ALT/SGPT) 13, Alkaline Phosphatase 58, C-Reactive Protein, Quantitative 15.8H, Pro-B-Type Natriuretic Peptide > 93075V, Total Protein 6.5, Albumin 2.3L Height (Feet): 5 Height (Inches): 6.00 Weight (Pounds): 126 General Appearance: alert EENT: normal ENT inspection Neck: supple Cardiovascular: normal peripheral pulses Respiratory/Chest: lungs clear Abdomen: normal bowel sounds, non tender, soft Extremities: non-tender Luis Manuel Novak MD Apr 09, 2019 08:24
[2019-04-09] MEDS: Carvedilol 25mg Tab ORAL SCH ×3 (08:54→21:15)
[2019-04-09] MEDS: Docusate 100mg cap ORAL SCH ×4 (08:54→17:27)
[2019-04-09] MEDS: Heparin 5000 units/ml inj SUBQ SCH ×2 (08:56→21:15)
--- NOTE | 2019-04-09 09:01 | NUR ---
NURSE NOTES: Delmar RN awoke patient for morning medications. Patient was awake and alert x 3. When presented with the medications patient refuse to take all oral medications. Delmar RN educated the purpose of the medications. Delmar RN educated patient on possible cons of not taking medications. Patient stated " I don't need anything, I will be just fine. Now go.".
--- NOTE | 2019-04-09 11:00 | NUR ---
NURSE NOTES: Received phone call from Fidelina in case management. Working on clearance from GI and nephrology. Awaiting update, and will progress towards discharge.
--- NOTE | 2019-04-09 11:03 | Nephrology Progress Note ---
Assessment/Plan Problem List: (1) End stage renal disease on dialysis (2) Dermatitis (3) Abdominal pain (4) Hypertensive kidney disease (5) Anemia in chronic kidney disease (CKD) Assessment ESRD- high K today Abdominal pain- Scaly skin lesions- Anemia of CKD HTN Plan No labs today however potassium was elevated yesterday before dialysis HD 3/2 next dialysis April 09 Adjust blood pressure medication Venofer and Epogen 2D echo EjFx 60% Renal diet when Ok to start PO by GI Phos binders per orders Subjective ROS Limited/Unobtainable: No Constitutional: Reports: malaise Objective Objective Last 24 Hour Vital Signs Date Time Temp Pulse Resp B/P (MAP) Pulse Ox O2 Delivery O2 Flow Rate FiO2 04/09/19 09:00 Room Air 04/09/19 08:00 98.5 80 22 146/71 (96) 100 04/09/19 04:00 97.3 72 20 143/65 (91) 100 04/09/19 00:00 97.5 61 20 154/71 (98) 95 04/08/19 21:00 Room Air 04/08/19 20:00 99.5 74 20 146/66 (92) 92 04/08/19 16:00 97.3 69 20 139/73 (95) 94 04/08/19 12:00 97.8 64 20 144/59 (87) 94 Intake and Output 04/08/19 04/09/19 19:00 07:00 Intake Total 480 ml 200 ml Balance 480 ml 200 ml Intake Oral 480 ml 200 ml # Voids 3 # Bowel Movements 2 Height (Feet): 5 Height (Inches): 6.00 Weight (Pounds): 125 General Appearance: no apparent distress, agitated - At times Cardiovascular: normal rate Abdomen: soft Mayank King MD Apr 09, 2019 11:02
[2019-04-09 12:00] VITALS: BP 156/67
--- NOTE | 2019-04-09 13:00 | NUR ---
NURSE NOTES: Paged Doctor Jaida regarding clearance for discharge. Awaiting call back.
--- NOTE | 2019-04-09 13:16 | NUR ---
RD ASSESSMENT & RECOMMENDATIONS SEE CARE ACTIVITY FOR COMPLETE ASSESSMENT DAILY ESTIMATED NEEDS: Needs based on ESRD on HD 57.2kg 30-35 kcals/kg 1022-1476 total kcals 1.2-1.8 g protein/kg 69-103 g total protein Fluid per MD, on HD NUTRITION DIAGNOSIS: Increased kcal and pro needs r/t renal dysfunction as evidenced by pt w/ ESRD on HD, 89% of [place] Body Weight. PO DIET RECOMMENDATIONS: Renal diet ADDITIONAL RECOMMENDATIONS: 1) Add NEPRO qdaily + high pro snacks in b/w meals 2) Obtain a standing weight as able OR recalibrate bed scale + Weekly weights 3) Nephrovite 1 tab daily
--- NOTE | 2019-04-09 13:37 | General Progress Note ---
Assessment/Plan Problem List: (1) Anemia ICD Codes: D64.9 - Anemia, unspecified SNOMED: 007012937 (2) Dermatitis ICD Codes: L30.9 - Dermatitis, unspecified SNOMED: 298796884 (3) Enteritis ICD Codes: K52.9 - Noninfective gastroenteritis and colitis, unspecified SNOMED: 90036827 (4) Abdominal pain ICD Codes: R10.9 - Unspecified abdominal pain SNOMED: 19081291 Qualifiers: Qualified Codes: R10.12 - Left upper quadrant pain (5) End stage renal disease on dialysis ICD Codes: N18.6 - End stage renal disease; Z99.2 - Dependence on renal dialysis SNOMED: 957615600 Status: stable, progressing Assessment/Plan: pt diet dialysis prn gi f/u cbc bmp am dc if clear Subjective Constitutional: Reports: weakness Allergies: Coded Allergies: No Known Allergies (Unverified , 04/05/19) All Systems: reviewed and negative except above Subjective calm in bed Objective Last 24 Hour Vital Signs Date Time Temp Pulse Resp B/P (MAP) Pulse Ox O2 Delivery O2 Flow Rate FiO2 04/09/19 09:00 Room Air 04/09/19 08:00 98.5 80 22 146/71 (96) 100 04/09/19 04:00 97.3 72 20 143/65 (91) 100 04/09/19 00:00 97.5 61 20 154/71 (98) 95 04/08/19 21:00 Room Air 04/08/19 20:00 99.5 74 20 146/66 (92) 92 04/08/19 16:00 97.3 69 20 139/73 (95) 94 Intake and Output 04/08/19 04/09/19 19:00 07:00 Intake Total 480 ml 1200 ml Balance 480 ml 1200 ml Intake Oral 480 ml 200 ml Hemodialysis 1000 ml # Voids 3 # Bowel Movements 2 Height (Feet): 5 Height (Inches): 6.00 Weight (Pounds): 125 General Appearance: lethargic EENT: normal ENT inspection Neck: normal alignment Cardiovascular: normal peripheral pulses, normal rate, regular rhythm Respiratory/Chest: chest wall non-tender, lungs clear, normal breath sounds Abdomen: normal bowel sounds, non tender, soft Extremities: normal inspection Edema: no edema noted Arm (L), no edema noted Arm (R), no edema noted Leg (L), no edema noted Leg (R), no edema noted Pedal (L), no edema noted Pedal (R), no edema noted Generalized Neurologic: motor weakness Skin: normal pigmentation, warm/dry Shiraz Ricks Apr 09, 2019 13:37
--- NOTE | 2019-04-09 13:43 | NUR ---
NURSE NOTES: Doctor Novak is current GI doctor on case. Paged and left a message regarding discharge. Waiting call back. Still waiting semiconductor wafers etch operator back from Christine.
--- NOTE | 2019-04-09 13:57 | NUR ---
NURSE NOTES: Patient refused to take 1300 medications. Delmar DENNISON educated the purpose of the medications. Delmar RN educated patient on possible cons of not taking medications. Patient still refused to take medications.
--- NOTE | 2019-04-09 14:44 | NUR ---
*-* CASE MANAGEMENT - DIALYSIS INFORMATION *-* PATIENT GOES TO: [facility] [address] [place] [address] P: [phone] TIME SHARE MONDAY,MONDAY AND MONDAY AT 9:30 A.M. Addendum: 04/09/19 at 1446 by LAYLA ALONZO CM INCORRECT INFO [facility]
--- NOTE | 2019-04-09 14:46 | NUR ---
*-* CASE MANAGEMENT - DIALYSIS INFORMATION *-* PATIENT GOES TO: [facility] [address] [place] [address] P: [phone] TIME SHARE MONDAY,MONDAY AND MONDAY AT 9:30 A.M.
--- NOTE | 2019-04-09 15:02 | NUR ---
PNEUMATIC TESTER MECHANIC NOTES SPOKE WITH ALESIA FROM [facility] [place] UNABLE TO ACCEPT PT BACK DUE TO THE BEHAVIORS. PLACED A CALL TO ABILIO CARBONE'S SW FROM [facility] [employer] MESSAGE LEFT. WILL FOLLOW UP. ABILIO [phone]
--- NOTE | 2019-04-09 15:15 | NUR ---
NURSE NOTES: Contacted Doctor Gutierrez regarding discharge medications. Was informed to continue hospital medications. Upon reviewing medications Delmar DENNISON had questions regarding several medications. Contacted Doctor Gutierrez again. Doctor Gutierrez asked me to contact Doctor Novak for medication reconciliation. Awaiting to hear back from Doctor Novak.
--- NOTE | 2019-04-09 15:55 | NUR ---
NURSE NOTES: Reviewed medication list with Doctor Scarlet. Meds reconciled.
[2019-04-09 16:00] VITALS: BP 143/66
--- NOTE | 2019-04-09 16:06 | Surgery Progress Note ---
Surgery Progress Note Subjective Symptoms: improved, pain absent, tolerating diet, voiding well, passing flatus , BM Objective Last 24 Hour Vital Signs Date Time Temp Pulse Resp B/P (MAP) Pulse Ox O2 Delivery O2 Flow Rate FiO2 04/09/19 12:00 98.1 79 22 156/67 (96) 98 04/09/19 09:00 Room Air 04/09/19 08:00 98.5 80 22 146/71 (96) 100 04/09/19 04:00 97.3 72 20 143/65 (91) 100 04/09/19 00:00 97.5 61 20 154/71 (98) 95 04/08/19 21:00 Room Air 04/08/19 20:00 99.5 74 20 146/66 (92) 92 I&O Intake and Output 04/08/19 04/09/19 19:00 07:00 Intake Total 480 ml 1200 ml Balance 480 ml 1200 ml Intake Oral 480 ml 200 ml Hemodialysis 1000 ml # Voids 3 # Bowel Movements 2 Dressing: dry Wound: clean Cardiovascular: RSR Respiratory: clear Abdomen: soft, flat, non-tender, present bowel sounds Extremities: no edema, no tenderness, no cyanosis Plan Problems: (1) Abdominal pain Assessment & Plan: 58 year old male with likely enteritis. afebrile HD stable, labs okay CT noted as below abd exam fairly benign constipated okay for diet bowel regimen trend labs iv hydration improving overall hydrated now labs noted dry skin on face, scalp, upper extremities resolved. lower extremity scaly skin, cont skin cream will follow with serial exams thank you Lack of enteric contrast limits assessment of the GI tract. There is no evidence of colonic diverticulosis or diverticulitis. What is probably a normal appendix is visualized. No small bowel distention. There is questionably minimal wall thickening of left upper quadrant small bowel loops. No free or loculated intraperitoneal gas or fluid is evident. There is bilateral inguinal lymphadenopathy, largest nodes measuring up to 2.5 cm long axis dimension by 1.6 cm short axis dimension. There are also prominent less strikingly enlarged iliac chain and retroperitoneal nodes. There are a few prominent peripancreatic nodes as well. The liver is mildly enlarged. Gallbladder demonstrates no definite gallstones. There is equivocal minimal edema of the gallbladder wall, however. No biliary ductal dilatation. The pancreas is unremarkable. The spleen is upper limits of normal in size. The adrenals are unremarkable. The kidneys are atrophic. No pelvic mass other than the lymphadenopathy. The bladder and prostate are unremarkable. There is fairly extensive vascular calcification. The lung bases demonstrate posterior dependent atelectatic changes. The heart is enlarged. The bones are unremarkable. Impression: Limited assessment of the GI tract, due to lack of enteric contrast demonstration Questionable minimal wall thickening of left upper quadrant small bowel loops, if real could indicate mild enteritis changes. Bilateral inguinal lymphadenopathy, nonspecific as regards etiology, could be reactive, neoplastic, or on the basis of a lymphoproliferative disorder. There are also prominent but not frankly enlarged bilateral iliac chain and retroperitoneal lymph nodes. Mild hepatomegaly Atrophic kidneys, in keeping with stated clinical history of chronic renal disease Cardiomegaly Mason Cruz Apr 09, 2019 16:06
--- NOTE | 2019-04-09 18:28 | Infectious Diseases Prog Note ---
Assessment/Plan Assessment/Plan ASSESSMENT: Enteritis/ diarrhea, improved. Normal white blood cells. Afebrile. Anemia. COPD. History of end-stage renal disease on hemodialysis. Anemia. PLAN: will monitor the patient off of antibiotics. Monitor CBC. Monitor BMP. If the patient developed fever, we will start the patient on empiric antibiotic and review panculture. Contact isolation due to MRSA colonization Subjective Allergies: Coded Allergies: No Known Allergies (Unverified , 04/05/19) Subjective comfortable afebrile Objective Vital Signs Last 24 Hour Vital Signs Date Time Temp Pulse Resp B/P (MAP) Pulse Ox O2 Delivery O2 Flow Rate FiO2 04/09/19 16:00 96.9 74 22 143/66 (91) 98 04/09/19 12:00 98.1 79 22 156/67 (96) 98 04/09/19 09:00 Room Air 04/09/19 08:00 98.5 80 22 146/71 (96) 100 04/09/19 04:00 97.3 72 20 143/65 (91) 100 04/09/19 00:00 97.5 61 20 154/71 (98) 95 04/08/19 21:00 Room Air 04/08/19 20:00 99.5 74 20 146/66 (92) 92 Height (Feet): 5 Height (Inches): 6.00 Weight (Pounds): 125 Current Medications Medications (Trade) Dose Ordered Sig/Velma Route PRN Reason Start Time Stop Time Status Last Admin Dose Admin Acetaminophen (Tylenol) 650 mg Q4H PRN ORAL Pain Scale (3-5) 04/05/19 13:30 05/05/19 13:29 04/08/19 20:46 Carvedilol (Coreg) 25 mg EVERY 12 HOURS ORAL 04/06/19 21:00 05/05/19 20:59 04/07/19 21:01 Clonidine HCl (Catapres Tab) 0.1 mg Q4H PRN ORAL SBP over 160 04/05/19 13:30 05/05/19 13:29 04/07/19 04:18 Diphenhydramine HCl (Benadryl) 50 mg Q6H PRN ORAL Itching 04/07/19 08:30 05/07/19 08:29 04/07/19 18:10 Docusate Sodium (Colace) 100 mg THREE TIMES A DAY ORAL 04/05/19 18:00 05/05/19 17:59 04/06/19 14:04 Epoetin Shlomo (Epoetin Shlomo(ESRD on dialysis)) 10,000 unit MON-MON-MON SUBQ 04/08/19 21:00 05/08/19 20:59 04/08/19 20:55 Heparin Sodium (Porcine) (Heparin 5000 units/ml) 5,000 units EVERY 12 HOURS SUBQ 04/05/19 21:00 05/05/19 20:59 04/09/19 08:56 Iron Sucrose 100 mg/Sodium Chloride 55 ml @ 200 mls/hr BEDTIME IV 04/06/19 21:00 04/15/19 21:17 04/08/19 20:46 Pantoprazole (Protonix) 40 mg BID ORAL 04/05/19 18:00 05/06/19 08:59 04/07/19 18:10 Sevelamer Carbonate (Renvela) 2,400 mg THREE TIMES A DAY ORAL 04/09/19 13:00 05/06/19 12:59 Tomy Perdomo MD Apr 09, 2019 18:28
[2019-04-09 20:00] VITALS: BP 154/69
--- NOTE | 2019-04-09 20:04 | NUR ---
NURSE NOTES: Received patient awake, alert, verbal, resting in bed, comfortable.
--- NOTE | 2019-04-10 07:25 | NUR ---
NURSE NOTES: Report received from JESI ALVAREZ. Patient is currently asleep, was endorsed that patient is able to verbalize needs. combative and noncompliant @ times with the previous nurse. Patient on room air, no s/sx of cardio-resp distress noted. AV Fistula noted in right upper forearm. bed is in the lowest position. ambultaory. call light is within reach. siderails are up x3. brake engaged and lock @ all times. Will continue to follow plan of care.
--- NOTE | 2019-04-10 07:27 | NUR ---
HAND-OFF: Report given to Mei Solano LVN.
--- NOTE | 2019-04-10 08:46 | General Progress Note ---
Assessment/Plan Problem List: (1) Anemia ICD Codes: D64.9 - Anemia, unspecified SNOMED: 803015080 (2) Dermatitis ICD Codes: L30.9 - Dermatitis, unspecified SNOMED: 915153671 (3) Enteritis ICD Codes: K52.9 - Noninfective gastroenteritis and colitis, unspecified SNOMED: 04425261 (4) Abdominal pain ICD Codes: R10.9 - Unspecified abdominal pain SNOMED: 78610813 Qualifiers: Qualified Codes: R10.12 - Left upper quadrant pain (5) End stage renal disease on dialysis ICD Codes: N18.6 - End stage renal disease; Z99.2 - Dependence on renal dialysis SNOMED: 631023089 Status: stable, progressing Assessment/Plan: pt diet dialysis prn gi f/u cbc bmp am psyc transfer vs dc to snf Subjective Constitutional: Reports: weakness Allergies: Coded Allergies: No Known Allergies (Unverified , 04/05/19) All Systems: reviewed and negative except above Subjective anxous in bed Objective Last 24 Hour Vital Signs Date Time Temp Pulse Resp B/P (MAP) Pulse Ox O2 Delivery O2 Flow Rate FiO2 04/09/19 21:57 Room Air 04/09/19 21:15 73 154/69 04/09/19 20:00 97.4 73 22 154/69 (97) 98 04/09/19 16:00 96.9 74 22 143/66 (91) 98 04/09/19 12:00 98.1 79 22 156/67 (96) 98 04/09/19 09:00 Room Air Intake and Output 04/09/19 04/10/19 19:00 07:00 Intake Total 360 ml Balance 360 ml Intake Oral 360 ml # Bowel Movements 1 Height (Feet): 5 Height (Inches): 6.00 Weight (Pounds): 120 General Appearance: lethargic EENT: normal ENT inspection Neck: normal alignment Cardiovascular: normal peripheral pulses, normal rate, regular rhythm Respiratory/Chest: chest wall non-tender, lungs clear, normal breath sounds Abdomen: normal bowel sounds, non tender, soft Extremities: normal inspection Edema: no edema noted Arm (L), no edema noted Arm (R), no edema noted Leg (L), no edema noted Leg (R), no edema noted Pedal (L), no edema noted Pedal (R), no edema noted Generalized Neurologic: motor weakness Skin: normal pigmentation, warm/dry Shiraz Ricks DO Apr 10, 2019 08:46
[2019-04-10] MEDS: Docusate 100mg cap ORAL SCH ×3 (09:00→17:12)
[2019-04-10] MEDS: Heparin 5000 units/ml inj SUBQ SCH ×2 (09:00→21:12)
[2019-04-10] MEDS: Carvedilol 25mg Tab ORAL SCH ×2 (09:00→21:00)
--- NOTE | 2019-04-10 09:00 | NUR ---
NURSE NOTES: patient appeared aggressive, impulsive and hostile towards staff. Explained to patient not to scream @ nurses and he yelled even more. Patient appeared to be noncompliant to V/S and medication regimen this am. will cont to reinforce care. patient able to use of call light when assistance needed. will cont to monitor.
--- NOTE | 2019-04-10 09:10 | Infectious Diseases Prog Note ---
Assessment/Plan Assessment/Plan ASSESSMENT: Enteritis/ diarrhea, improved Normal white blood cells Afebrile Anemia COPD History of end-stage renal disease on hemodialysis Anemia PLAN: will monitor the patient off of antibiotics Monitor CBC Monitor BMP GI following Contact isolation due to MRSA colonization Subjective Allergies: Coded Allergies: No Known Allergies (Unverified , 04/05/19) Subjective no new event diarrhea Objective Vital Signs Last 24 Hour Vital Signs Date Time Temp Pulse Resp B/P (MAP) Pulse Ox O2 Delivery O2 Flow Rate FiO2 04/09/19 21:57 Room Air 04/09/19 21:15 73 154/69 04/09/19 20:00 97.4 73 22 154/69 (97) 98 04/09/19 16:00 96.9 74 22 143/66 (91) 98 04/09/19 12:00 98.1 79 22 156/67 (96) 98 Height (Feet): 5 Height (Inches): 6.00 Weight (Pounds): 120 Respiratory/Chest: normal breath sounds Cardiovascular: regularly irregular Abdomen: no organomegaly Current Medications Medications (Trade) Dose Ordered Sig/Velma Route PRN Reason Start Time Stop Time Status Last Admin Dose Admin Acetaminophen (Tylenol) 650 mg Q4H PRN ORAL Pain Scale (3-5) 04/05/19 13:30 05/05/19 13:29 04/08/19 20:46 Carvedilol (Coreg) 25 mg EVERY 12 HOURS ORAL 04/06/19 21:00 05/05/19 20:59 04/09/19 21:15 Clonidine HCl (Catapres Tab) 0.1 mg Q4H PRN ORAL SBP over 160 04/05/19 13:30 05/05/19 13:29 04/07/19 04:18 Diphenhydramine HCl (Benadryl) 50 mg Q6H PRN ORAL Itching 04/07/19 08:30 05/07/19 08:29 04/07/19 18:10 Docusate Sodium (Colace) 100 mg THREE TIMES A DAY ORAL 04/05/19 18:00 05/05/19 17:59 04/06/19 14:04 Epoetin Shlomo (Epoetin Shlomo(ESRD on dialysis)) 10,000 unit MON-MON-MON SUBQ 04/08/19 21:00 05/08/19 20:59 04/08/19 20:55 Heparin Sodium (Porcine) (Heparin 5000 units/ml) 5,000 units EVERY 12 HOURS SUBQ 04/05/19 21:00 05/05/19 20:59 04/09/19 21:15 Iron Sucrose 100 mg/Sodium Chloride 55 ml @ 200 mls/hr BEDTIME IV 04/06/19 21:00 04/15/19 21:17 04/09/19 21:15 Pantoprazole (Protonix) 40 mg BID ORAL 04/05/19 18:00 05/06/19 08:59 04/07/19 18:10 Sevelamer Carbonate (Renvela) 2,400 mg THREE TIMES A DAY ORAL 04/09/19 13:00 05/06/19 12:59 Tomy Perdomo MD Apr 10, 2019 09:10
--- NOTE | 2019-04-10 09:27 | NUR ---
INVESTIGATOR INTERNAL AFFAIRS NOTE POORNIMA received a consult for psych transfer. POORNIMA spoke w/ Ara from [facility] [phone] and faxed the referral packet to [phone]. Signed: 04/10/19 at 0928 by MARY NOGUERA <Co-Signature Required>
--- NOTE | 2019-04-10 11:25 | NUR ---
P.T Note: Pt refused to participate in P.T evaluation.
[2019-04-10 12:03] VITALS: BP 144/70
--- NOTE | 2019-04-10 13:31 | NUR ---
AGER OPERATOR NOTE Per Nancy, the fax was not delivered. POORNIMA faxed to [phone] again. Signed: 04/10/19 at 1334 by MARY NOGUERA <Co-Signature Required>
--- NOTE | 2019-04-10 13:53 | NUR ---
CHARGE NURSE NOTE: Spoke with pt's daughter Sydnie, she wants to talk to Dr. Ricks. notified.
--- NOTE | 2019-04-10 14:09 | NUR ---
NURSE NOTES: patient remained aggressive and impulsive. refused medications for pm. Explained the indications and became mad. will cont to monitor.
--- NOTE | 2019-04-10 14:51 | Surgery Progress Note ---
Surgery Progress Note Subjective Additional Comments no acute events comfortable stable no complaints Objective Last 24 Hour Vital Signs Date Time Temp Pulse Resp B/P (MAP) Pulse Ox O2 Delivery O2 Flow Rate FiO2 04/10/19 12:03 98.4 80 20 144/70 (94) 98 04/10/19 09:00 Room Air 04/09/19 21:57 Room Air 04/09/19 21:15 73 154/69 04/09/19 20:00 97.4 73 22 154/69 (97) 98 04/09/19 16:00 96.9 74 22 143/66 (91) 98 I&O Intake and Output 04/09/19 04/10/19 19:00 07:00 Intake Total 360 ml Balance 360 ml Intake Oral 360 ml # Bowel Movements 1 Dressing: dry Wound: clean Cardiovascular: RSR Respiratory: clear Abdomen: soft, non-tender, present bowel sounds Extremities: no edema, no tenderness, no cyanosis Plan Problems: (1) Abdominal pain Assessment & Plan: 58 year old male with likely enteritis. afebrile HD stable, labs okay CT noted as below abd exam fairly benign constipated okay for diet bowel regimen trend labs iv hydration improving overall hydrated now labs noted dry skin on face, scalp, upper extremities resolved. lower extremity scaly skin, cont skin cream will follow with serial exams thank you Lack of enteric contrast limits assessment of the GI tract. There is no evidence of colonic diverticulosis or diverticulitis. What is probably a normal appendix is visualized. No small bowel distention. There is questionably minimal wall thickening of left upper quadrant small bowel loops. No free or loculated intraperitoneal gas or fluid is evident. There is bilateral inguinal lymphadenopathy, largest nodes measuring up to 2.5 cm long axis dimension by 1.6 cm short axis dimension. There are also prominent less strikingly enlarged iliac chain and retroperitoneal nodes. There are a few prominent peripancreatic nodes as well. The liver is mildly enlarged. Gallbladder demonstrates no definite gallstones. There is equivocal minimal edema of the gallbladder wall, however. No biliary ductal dilatation. The pancreas is unremarkable. The spleen is upper limits of normal in size. The adrenals are unremarkable. The kidneys are atrophic. No pelvic mass other than the lymphadenopathy. The bladder and prostate are unremarkable. There is fairly extensive vascular calcification. The lung bases demonstrate posterior dependent atelectatic changes. The heart is enlarged. The bones are unremarkable. Impression: Limited assessment of the GI tract, due to lack of enteric contrast demonstration Questionable minimal wall thickening of left upper quadrant small bowel loops, if real could indicate mild enteritis changes. Bilateral inguinal lymphadenopathy, nonspecific as regards etiology, could be reactive, neoplastic, or on the basis of a lymphoproliferative disorder. There are also prominent but not frankly enlarged bilateral iliac chain and retroperitoneal lymph nodes. Mild hepatomegaly Atrophic kidneys, in keeping with stated clinical history of chronic renal disease Cardiomegaly Mason Cruz Apr 10, 2019 14:51
--- NOTE | 2019-04-10 15:17 | Nephrology Progress Note ---
Assessment/Plan Problem List: (1) End stage renal disease on dialysis (2) Dermatitis (3) Abdominal pain (4) Hypertensive kidney disease (5) Anemia in chronic kidney disease (CKD) Assessment ESRD- high K today Abdominal pain- Scaly skin lesions- Anemia of CKD HTN Plan Patient is due for dialysis day Refuses blood work HD / next dialysis April 09 Adjust blood pressure medication Venofer and Epogen 2D echo EjFx 60% Renal diet when Ok to start PO by GI Phos binders per orders Subjective ROS Limited/Unobtainable: No Constitutional: Reports: malaise Objective Objective Last 24 Hour Vital Signs Date Time Temp Pulse Resp B/P (MAP) Pulse Ox O2 Delivery O2 Flow Rate FiO2 04/10/19 12:03 98.4 80 20 144/70 (94) 98 04/10/19 09:00 Room Air 04/09/19 21:57 Room Air 04/09/19 21:15 73 154/69 04/09/19 20:00 97.4 73 22 154/69 (97) 98 04/09/19 16:00 96.9 74 22 143/66 (91) 98 Intake and Output 04/09/19 04/10/19 19:00 07:00 Intake Total 360 ml Balance 360 ml Intake Oral 360 ml # Bowel Movements 1 Height (Feet): 5 Height (Inches): 6.00 Weight (Pounds): 120 General Appearance: no apparent distress Objective No change in overall examination-patient uncooperative and hard to examine Mayank King MD Apr 10, 2019 15:17
--- NOTE | 2019-04-10 15:27 | NUR ---
PEDIATRIC OPHTHALMOLOGIST NOTE POORNIMA spoke w/ Edin from [facility] <Correction:Edin, not Ara on previous note.> [phone] that the hospital cannot take pt w/ dialysis. POORNIMA called [facility] [phone], [facility] [phone], [facility] [phone] and [facility] [phone] and confirmed non of them will accept dialysis pt for psych transfer. SW met w/ pt and attempted to obtain information. Pt mostly answered "I don't know." Pt was unable to provide consistent information. POORNIMA spoke w/ MARIZA Ty from [facility] [phone], to gather information. Pt receives SSI and the agency offers financial service for pt's housing if needed. POORNIMA relayed information to assigned CM. Signed: 04/10/19 at 1532 by MARY NOGUERA <Co-Signature Required>
--- NOTE | 2019-04-10 17:00 | NUR ---
CASE MANAGEMENT:REVIEW SI;ENTERITIS. ESRD. ANEMIA. 98.4 80 20 144/70 98% ON RA IS;IRON SUCROSE IV HS HEPARIN SUBQ Q12 HRS PROTONIX PO BID COREG PO Q12 HRS BENADRYL PO Q6 HRS RENVELA PO TID MED SURG STATUS PLAN OF CARE; RENAL DIET PHOS BINDERS DCP;SNF PLACEMENT
--- NOTE | 2019-04-10 18:55 | NUR ---
NURSE NOTES: HD IS ONGOING.
--- NOTE | 2019-04-10 18:55 | NUR ---
HAND-OFF: Report given to
--- NOTE | 2019-04-10 19:28 | NUR ---
NURSE NOTES: Received patient awake, verbal, resting in bed, ongoing hemodialysis.
[2019-04-10 20:00] VITALS: BP 115/56
[2019-04-10] MEDS: Epoetin Alfa-EPBX(ESRD on dialysis)10,000 unit/ml vial SUBQ SCH (21:11)
[2019-04-11 04:38] VITALS: BP 161/61
--- NOTE | 2019-04-11 07:24 | NUR ---
HAND-OFF: Report given to Azul Khan RN.
--- NOTE | 2019-04-11 07:30 | NUR ---
NURSE NOTES: Received pt from JESI ALVAREZ, Pt is awake and alert, pt has NC 2LMP, Pt has intact iv access LFA 22G SL. Pt has intact HD access EZRA. pt is eating breakfast by observation. all needs attended, bed is locked and is in the lowest position, call light within easy reach. will continue to monitor. Addendum: 04/11/19 at 0757 by Azul Weiner RN ERROR Pt is on RA, no SOB or acute respiratory distress noted.
[2019-04-11 08:00] VITALS: BP 157/66
--- NOTE | 2019-04-11 08:37 | General Progress Note ---
Assessment/Plan Problem List: (1) Anemia ICD Codes: D64.9 - Anemia, unspecified SNOMED: 124409091 (2) Dermatitis ICD Codes: L30.9 - Dermatitis, unspecified SNOMED: 830664151 (3) Enteritis ICD Codes: K52.9 - Noninfective gastroenteritis and colitis, unspecified SNOMED: 92826922 (4) Abdominal pain ICD Codes: R10.9 - Unspecified abdominal pain SNOMED: 02784093 Qualifiers: Qualified Codes: R10.12 - Left upper quadrant pain (5) End stage renal disease on dialysis ICD Codes: N18.6 - End stage renal disease; Z99.2 - Dependence on renal dialysis SNOMED: 872196945 Status: stable, progressing Assessment/Plan: pt diet dialysis prn gi f/u cbc bmp am psyc transfer vs dc to snf Subjective Constitutional: Reports: weakness Allergies: Coded Allergies: No Known Allergies (Unverified , 04/05/19) All Systems: reviewed and negative except above Subjective sleepy in bed Objective Last 24 Hour Vital Signs Date Time Temp Pulse Resp B/P (MAP) Pulse Ox O2 Delivery O2 Flow Rate FiO2 04/11/19 08:00 98.8 77 20 157/66 (96) 95 04/11/19 04:38 97.6 82 20 161/61 (94) 98 04/10/19 21:00 80 115/56 04/10/19 20:19 Room Air 04/10/19 20:00 98.8 80 16 115/56 (75) 94 04/10/19 12:03 98.4 80 20 144/70 (94) 98 04/10/19 09:00 Room Air Intake and Output 04/10/19 04/11/19 19:00 07:00 Intake Total 840 ml 118 ml Balance 840 ml 118 ml Intake Oral 840 ml Other 118 ml # Voids 6 # Bowel Movements 1 Height (Feet): 5 Height (Inches): 6.00 Weight (Pounds): 121 General Appearance: lethargic EENT: normal ENT inspection Neck: normal alignment Cardiovascular: normal peripheral pulses, normal rate, regular rhythm Respiratory/Chest: chest wall non-tender, lungs clear, normal breath sounds Abdomen: normal bowel sounds, non tender, soft Extremities: normal inspection Edema: no edema noted Arm (L), no edema noted Arm (R), no edema noted Leg (L), no edema noted Leg (R), no edema noted Pedal (L), no edema noted Pedal (R), no edema noted Generalized Neurologic: motor weakness Skin: normal pigmentation, warm/dry Shiraz Ricks Apr 11, 2019 08:37
[2019-04-11] MEDS: Carvedilol 25mg Tab ORAL SCH ×2 (08:42→20:28)
[2019-04-11] MEDS: Docusate 100mg cap ORAL SCH ×4 (08:42→18:00)
[2019-04-11] MEDS: Heparin 5000 units/ml inj SUBQ SCH ×2 (08:47→20:29)
--- NOTE | 2019-04-11 08:48 | NUR ---
NURSE NOTES: pt refused some morning meds x3 attempts, RN explained risks and benefits. Dr ABDI is aware.
--- NOTE | 2019-04-11 09:28 | Surgery Progress Note ---
Surgery Progress Note Subjective Additional Comments stable comfortable nno n/v/f/c pending d/c Objective Last 24 Hour Vital Signs Date Time Temp Pulse Resp B/P (MAP) Pulse Ox O2 Delivery O2 Flow Rate FiO2 04/11/19 08:42 77 157/66 04/11/19 08:00 98.8 77 20 157/66 (96) 95 04/11/19 04:38 97.6 82 20 161/61 (94) 98 04/10/19 21:00 80 115/56 04/10/19 20:19 Room Air 04/10/19 20:00 98.8 80 16 115/56 (75) 94 04/10/19 12:03 98.4 80 20 144/70 (94) 98 I&O Intake and Output 04/10/19 04/11/19 19:00 07:00 Intake Total 840 ml 118 ml Balance 840 ml 118 ml Intake Oral 840 ml Other 118 ml # Voids 6 # Bowel Movements 1 Cardiovascular: RSR Respiratory: clear Abdomen: soft, non-tender, present bowel sounds Extremities: no cyanosis Plan Problems: (1) Abdominal pain Assessment & Plan: 58 year old male with likely enteritis. afebrile HD stable, labs okay CT noted as below abd exam fairly benign constipated okay for diet bowel regimen trend labs iv hydration improving overall hydrated now labs noted dry skin on face, scalp, upper extremities resolved. lower extremity scaly skin, cont skin cream will follow with serial exams thank you Lack of enteric contrast limits assessment of the GI tract. There is no evidence of colonic diverticulosis or diverticulitis. What is probably a normal appendix is visualized. No small bowel distention. There is questionably minimal wall thickening of left upper quadrant small bowel loops. No free or loculated intraperitoneal gas or fluid is evident. There is bilateral inguinal lymphadenopathy, largest nodes measuring up to 2.5 cm long axis dimension by 1.6 cm short axis dimension. There are also prominent less strikingly enlarged iliac chain and retroperitoneal nodes. There are a few prominent peripancreatic nodes as well. The liver is mildly enlarged. Gallbladder demonstrates no definite gallstones. There is equivocal minimal edema of the gallbladder wall, however. No biliary ductal dilatation. The pancreas is unremarkable. The spleen is upper limits of normal in size. The adrenals are unremarkable. The kidneys are atrophic. No pelvic mass other than the lymphadenopathy. The bladder and prostate are unremarkable. There is fairly extensive vascular calcification. The lung bases demonstrate posterior dependent atelectatic changes. The heart is enlarged. The bones are unremarkable. Impression: Limited assessment of the GI tract, due to lack of enteric contrast demonstration Questionable minimal wall thickening of left upper quadrant small bowel loops, if real could indicate mild enteritis changes. Bilateral inguinal lymphadenopathy, nonspecific as regards etiology, could be reactive, neoplastic, or on the basis of a lymphoproliferative disorder. There are also prominent but not frankly enlarged bilateral iliac chain and retroperitoneal lymph nodes. Mild hepatomegaly Atrophic kidneys, in keeping with stated clinical history of chronic renal disease Cardiomegaly Mason Cruz Apr 11, 2019 09:28
--- NOTE | 2019-04-11 10:44 | General Progress Note ---
Assessment/Plan Status: stable, progressing Assessment/Plan: Progress Note date and time: 04/07/19 0739 Assessment/Plan Status: unchanged Assessment/Plan: GI: Plan Problems: (1) Abdominal pain (2) Enteritis (3) Anemia Plan #Abdominal pain secondary to viral enteritis CT reviewed (04/05/19) >> Questionable minimal wall thickening of left upper quadrant small bowel loops, if real could indicate mild enteritis changes. Zofran PRN for any nausea vomiting Collect stool studies and C. difficile if patient has persistent diarrhea rule out bacterial Pain management #Anemia most likely secondary to chronic kidney disease anemia work up Obtain occult blood stool to evaluate for any GI bleed>>> neg monitor H&H, prn transfusions Prophylactic PPI needs out patient GI procedures given elevated CEA Subjective ROS Limited/Unobtainable: No Allergies: Coded Allergies: No Known Allergies (Unverified , 04/05/19) Objective Last 24 Hour Vital Signs Date Time Temp Pulse Resp B/P (MAP) Pulse Ox O2 Delivery O2 Flow Rate FiO2 04/11/19 09:00 Room Air 04/11/19 08:42 77 157/66 04/11/19 08:00 98.8 77 20 157/66 (96) 95 04/11/19 04:38 97.6 82 20 161/61 (94) 98 04/10/19 21:00 80 115/56 04/10/19 20:19 Room Air 04/10/19 20:00 98.8 80 16 115/56 (75) 94 04/10/19 12:03 98.4 80 20 144/70 (94) 98 Intake and Output 04/10/19 04/11/19 19:00 07:00 Intake Total 840 ml 118 ml Balance 840 ml 118 ml Intake Oral 840 ml Other 118 ml # Voids 6 # Bowel Movements 1 Height (Feet): 5 Height (Inches): 6.00 Weight (Pounds): 121 General Appearance: alert EENT: normal ENT inspection Neck: supple Cardiovascular: normal rate Respiratory/Chest: decreased breath sounds Abdomen: normal bowel sounds, non tender, soft Extremities: non-tender Luis Manuel Novak MD Apr 11, 2019 10:44
--- NOTE | 2019-04-11 11:22 | Nephrology Progress Note ---
Assessment/Plan Problem List: (1) End stage renal disease on dialysis (2) Dermatitis (3) Abdominal pain (4) Hypertensive kidney disease (5) Anemia in chronic kidney disease (CKD) Assessment ESRD- high K today Abdominal pain- Scaly skin lesions- Anemia of CKD HTN Plan Shunt was dialyzed on April 09 Will check labs in a.m. if he does not refuse If in-house will do dialysis tomorrow April 11 Refuses blood work Adjust blood pressure medication Venofer and Epogen 2D echo EjFx 60% Renal diet when Ok to start PO by GI Phos binders per orders Subjective ROS Limited/Unobtainable: No Constitutional: Reports: malaise Objective Objective Last 24 Hour Vital Signs Date Time Temp Pulse Resp B/P (MAP) Pulse Ox O2 Delivery O2 Flow Rate FiO2 04/11/19 09:00 Room Air 04/11/19 08:42 77 157/66 04/11/19 08:00 98.8 77 20 157/66 (96) 95 04/11/19 04:38 97.6 82 20 161/61 (94) 98 04/10/19 21:00 80 115/56 04/10/19 20:19 Room Air 04/10/19 20:00 98.8 80 16 115/56 (75) 94 04/10/19 12:03 98.4 80 20 144/70 (94) 98 Intake and Output 04/10/19 04/11/19 19:00 07:00 Intake Total 840 ml 118 ml Balance 840 ml 118 ml Intake Oral 840 ml Other 118 ml # Voids 6 # Bowel Movements 1 Height (Feet): 5 Height (Inches): 6.00 Weight (Pounds): 121 General Appearance: no apparent distress, other - Uncooperative Cardiovascular: normal rate Respiratory/Chest: decreased breath sounds Abdomen: soft Objective No change in overall examination-patient uncooperative and hard to examine Mayank King MD Apr 11, 2019 11:22
[2019-04-11 12:00] VITALS: BP 150/65
[2019-04-11] MEDS: HydrALAZINE 25mg tab ORAL SCH ×2 (14:00→22:00)
--- NOTE | 2019-04-11 15:14 | NUR ---
NURSE NOTES: RN called [facility] for HD for tomorrow 04/11, spoke with [place].
--- NOTE | 2019-04-11 15:30 | NUR ---
P.T Note: P.T evaluation re attempted with [employer] present. Pt however adamantly refused to participate. Pt became belligerent upon further encouragement. P.T attempts were made this past few days however unsuccessful due to refusals. DC P.T due to non compliance.
--- NOTE | 2019-04-11 16:04 | Infectious Diseases Prog Note ---
Assessment/Plan Assessment/Plan ASSESSMENT: Enteritis/ diarrhea, improved Normal white blood cells Afebrile Anemia COPD History of end-stage renal disease on hemodialysis Anemia PLAN: will monitor the patient off of antibiotics Monitor CBC Monitor BMP GI following Contact isolation due to MRSA colonization Subjective Allergies: Coded Allergies: No Known Allergies (Unverified , 04/05/19) Subjective no new event Objective Vital Signs Last 24 Hour Vital Signs Date Time Temp Pulse Resp B/P (MAP) Pulse Ox O2 Delivery O2 Flow Rate FiO2 04/11/19 14:00 150/65 04/11/19 12:00 98.2 79 17 150/65 (93) 96 04/11/19 09:00 Room Air 04/11/19 08:42 77 157/66 04/11/19 08:00 98.8 77 20 157/66 (96) 95 04/11/19 04:38 97.6 82 20 161/61 (94) 98 04/10/19 21:00 80 115/56 04/10/19 20:19 Room Air 04/10/19 20:00 98.8 80 16 115/56 (75) 94 Height (Feet): 5 Height (Inches): 6.00 Weight (Pounds): 121 HEENT: anicteric Respiratory/Chest: no respiratory distress Cardiovascular: regularly irregular Abdomen: soft, non tender Current Medications Medications (Trade) Dose Ordered Sig/Velma Route PRN Reason Start Time Stop Time Status Last Admin Dose Admin Acetaminophen (Tylenol) 650 mg Q4H PRN ORAL Pain Scale (3-5) 04/05/19 13:30 05/05/19 13:29 04/08/19 20:46 Carvedilol (Coreg) 25 mg EVERY 12 HOURS ORAL 04/06/19 21:00 05/05/19 20:59 04/11/19 08:42 Clonidine HCl (Catapres Tab) 0.1 mg Q4H PRN ORAL SBP over 160 04/05/19 13:30 05/05/19 13:29 04/07/19 04:18 Diphenhydramine HCl (Benadryl) 50 mg Q6H PRN ORAL Itching 04/07/19 08:30 05/07/19 08:29 04/07/19 18:10 Docusate Sodium (Colace) 100 mg THREE TIMES A DAY ORAL 04/05/19 18:00 05/05/19 17:59 04/06/19 14:04 Epoetin Shlomo (Epoetin Shlomo(ESRD on dialysis)) 10,000 unit MON-MON-MON SUBQ 04/08/19 21:00 05/08/19 20:59 04/10/19 21:11 Heparin Sodium (Porcine) (Heparin 5000 units/ml) 5,000 units EVERY 12 HOURS SUBQ 04/05/19 21:00 05/05/19 20:59 04/10/19 21:12 Hydralazine HCl (Apresoline) 25 mg Q8HR ORAL 04/11/19 14:00 05/11/19 13:59 Iron Sucrose 100 mg/Sodium Chloride 55 ml @ 200 mls/hr BEDTIME IV 04/06/19 21:00 04/15/19 21:17 04/10/19 21:10 Pantoprazole (Protonix) 40 mg BID ORAL 04/05/19 18:00 05/06/19 08:59 04/07/19 18:10 Sevelamer Carbonate (Renvela) 2,400 mg THREE TIMES A DAY ORAL 04/09/19 13:00 05/06/19 12:59 Tomy Perdomo MD Apr 11, 2019 16:04
--- NOTE | 2019-04-11 19:00 | Consultation ---
DATE OF CONSULTATION: 04/10/2019 HISTORY OF PRESENT ILLNESS: This is a male patient. The patient is a 58-year-old male who was brought into the hospital for abdominal pain. The patient has been receiving some of his care from [facility] and he has been noncompliant and for this reason he was referred for psychotherapeutic services. The patient has been slightly confused. When I assessed the patient, the patient states "I'm okay, I'm fine, I don't need medicine." The patient states no to depression and no to anxiety. He has been very short in his answers. The patient at this time when I asked "I don't know." The patient states "I don't he was living prior to his hospitalization." He is withdrawn. He is very guarded. He appears to be confused, disorganized. He was picking at the ear and . At this time, the patient is internally preoccupied. He continues to be very resistant to care, disorganized, confused and to be transferred to a psychiatric hospital once is cleared at this time. There is no indication of suicidal or homicidal thoughts or ideation. However, the patient appears to be . No logical or viable plan for self-care and safety. PAST MEDICAL HISTORY: History of diabetes. ALLERGIES: The patient has no known drug allergies. SUBSTANCE ABUSE HISTORY: There is no indication of alcohol use, illicit substance use, smoking cigarettes. PSYCHIATRIC HISTORY: The patient has a possible history of confusion and disorganization. No other significant psychiatric history is noted at this time. SOCIAL HISTORY: The patient is a 58-year-old single male patient. He is from [facility], financially sustained through [employer]. MENTAL STATUS EXAMINATION: He is alert and oriented to person and place. His mood is irritable. Affect is blunted. Thought process is disorganized. Thought content, confused. He has poor attention and concentration. Poor insight, judgment, impulse control. DIAGNOSES: 1. Rule out major depressive disorder, moderate, single episode with psychotic features. 2. Diabetes. 3. Psychosocial stressors are moderate. I ASSESSED THE PATIENT AND PROVIDED THE PATIENT WITH: 4. Reality orientation, which is focused on improving cognitive function of the patient, who is very confused and disorganized. Oriented to person, place, time, and situation. 5. When I attempted to provide the patient with supportive psychotherapy , he is fully guarded and withdrawn. The patient has been very restless and irritable, has no logical or viable plan for self-care. the patient remains agitated, irritable, and confused. Plan is to maintain medication compliance with positive coping skills, and stabilizing the thoughts and behavior. Psychotherapy provided to this patient is 45 minutes. This clinician has reviewed the patient's chart and discussed treatment with treatment team. An extensive review of records was also done as the patient is very confused, disorganized, and is a poor historian. Toma Morales PsyD. DR: Maude JOB#: [id number] CC:
--- NOTE | 2019-04-11 19:30 | NUR ---
NURSE NOTES: RECEIVED PATIENT LYING IN BED, AWAKE, ALERT/ORIENTED TO PERSON/PLACE, REALITY ORIENTATION PROVIDED DURING ASSESSMENT, DENIES PAIN. NO SIGNS AND SYMPTOMS OF ACUTE CARDIO RESPIRATORY DISTRESS/SHORTNESS OF BREATH, DENIES CHEST PAIN. NOTED AV SHUNT RIGHT UPPER ARM/+BRUITT/THRILL, HD SCHEDULED FOR 04/12/19, PATIENT AWARE. NO REPORT OF GI DISCOMFORT, NO N/V/D. SIDE RAILS UP X3/BED IN LOWEST POSITION FOR SAFETY. FALL PRECAUTIONS OBSERVED. BED IN LOWEST POSITION/CALL LIGHT WITHIN REACH/BED ALARM ACTIVATED FOR PREVENTIVE MEASURES. CONTINUE WITH CURRENT PLAN OF CARE. NAD.
--- NOTE | 2019-04-11 19:44 | NUR ---
HAND-OFF: Report given to TEOFILO DOTY. Pt is awake and stable.
[2019-04-11 20:00] VITALS: BP 147/63
--- NOTE | 2019-04-11 20:29 | NUR ---
NURSE NOTES: PATIENT COMPLAINED OF ITCHING, NOTED WITH SELF INFLICTED SCRATCHES TO RIGHT LATERAL THIGH/LEFT THIGH, REFUSED BENADRYL AND ALL OTHER SCHEDULED MEDICATIONS.
--- NOTE | 2019-04-11 21:00 | NUR ---
NURSE NOTES: PATIENT OFTEN NON COMPLIANT WITH PLAN OF CARE, FREQUENTLY REFUSING MEDICATION/VITALS.
--- NOTE | 2019-04-11 21:33 | NUR ---
NURSE NOTES: SYBIL ADM. IV, TOLERATED WELL, NO ADVERSE REACTION NOTED AFTER 15 MINUTES.
[2019-04-12] MEDS: HydrALAZINE 25mg tab ORAL SCH ×3 (06:00→22:00)
--- NOTE | 2019-04-12 06:26 | NUR ---
NURSE NOTES: NON COMPLIANT WITH PLAN OF CARE, REFUSED AM LAB DRAW X2
--- NOTE | 2019-04-12 07:20 | NUR ---
NURSE NOTES: RECEIVED PATIENT LYING IN BED WITH SHEET OVER HIS HEAD, AWAKE, ALERT/ORIENTEDX4. VERBALLY RESPONSIVE WITH IMPULSIVE BEHAVIOR. DENIES PAIN/DISCOMFORT NOTED. . NO SIGNS AND SYMPTOMS OF ACUTE CARDIO-RESPIRATORY DISTRESS/SHORTNESS OF BREATH, DENIES CHEST PAIN. REFUSED TO HAVE CHECK HIS AV SHUNT. WILL CONT TO REINFORCE. HD SCHEDULED FOR 04/12/19, PATIENT AWARE AND [facility] NOTIFIED BEFORE SHIFT. NO REPORT OF GI DISCOMFORT, NO N/V/D. SIDE RAILS UP X3/BED IN LOWEST POSITION FOR SAFETY. FALL PRECAUTIONS OBSERVED. BED IN LOWEST POSITION/CALL LIGHT WITHIN REACH/BED ALARM ACTIVATED FOR PREVENTIVE MEASURES. WILL CONT THE PLAN OF CARE.
[2019-04-12 08:00] VITALS: BP 151/71
[2019-04-12] MEDS: Docusate 100mg cap ORAL SCH ×3 (08:02→17:12)
[2019-04-12] MEDS: Carvedilol 25mg Tab ORAL SCH ×2 (08:02→21:19)
[2019-04-12] MEDS: Heparin 5000 units/ml inj SUBQ SCH ×2 (08:03→21:23)
--- NOTE | 2019-04-12 08:50 | Nephrology Progress Note ---
Assessment/Plan Problem List: (1) End stage renal disease on dialysis (2) Dermatitis (3) Abdominal pain (4) Hypertensive kidney disease (5) Anemia in chronic kidney disease (CKD) Assessment ESRD- high K today Abdominal pain- Scaly skin lesions- Anemia of CKD HTN Plan Patient was dialyzed on April 09 Will check labs in a.m. if he does not refuse If in-house will do dialysis tomorrow April 11 Refuses blood work Adjust blood pressure medication Venofer and Epogen 2D echo EjFx 60% Renal diet when Ok to start PO by GI Phos binders per orders Subjective ROS Limited/Unobtainable: No Constitutional: Reports: malaise, other - Cooperative Objective Objective Last 24 Hour Vital Signs Date Time Temp Pulse Resp B/P (MAP) Pulse Ox O2 Delivery O2 Flow Rate FiO2 04/11/19 21:00 Room Air 04/11/19 20:28 71 147/63 04/11/19 20:00 97.8 81 18 147/63 (91) 96 04/11/19 14:00 150/65 04/11/19 12:00 98.2 79 17 150/65 (93) 96 04/11/19 09:00 Room Air Intake and Output 04/11/19 04/12/19 19:00 07:00 Intake Total 650 ml 295 ml Balance 650 ml 295 ml Intake Oral 650 ml 240 ml IV Total 55 ml # Voids 6 # Bowel Movements 2 1 Current Medications Medications (Trade) Dose Ordered Sig/Velma Route PRN Reason Start Time Stop Time Status Last Admin Dose Admin Acetaminophen (Tylenol) 650 mg Q4H PRN ORAL Pain Scale (3-5) 04/05/19 13:30 05/05/19 13:29 04/08/19 20:46 Carvedilol (Coreg) 25 mg EVERY 12 HOURS ORAL 04/06/19 21:00 05/05/19 20:59 04/11/19 08:42 Clonidine HCl (Catapres Tab) 0.1 mg Q4H PRN ORAL SBP over 160 04/05/19 13:30 05/05/19 13:29 04/07/19 04:18 Diphenhydramine HCl (Benadryl) 50 mg Q6H PRN ORAL Itching 04/07/19 08:30 05/07/19 08:29 04/07/19 18:10 Docusate Sodium (Colace) 100 mg THREE TIMES A DAY ORAL 04/05/19 18:00 05/05/19 17:59 04/06/19 14:04 Epoetin Shlomo (Epoetin Shlomo(ESRD on dialysis)) 10,000 unit MON-MON-MON SUBQ 04/08/19 21:00 05/08/19 20:59 04/10/19 21:11 Heparin Sodium (Porcine) (Heparin 5000 units/ml) 5,000 units EVERY 12 HOURS SUBQ 04/05/19 21:00 05/05/19 20:59 04/10/19 21:12 Hydralazine HCl (Apresoline) 25 mg Q8HR ORAL 04/11/19 14:00 05/11/19 13:59 Iron Sucrose 100 mg/Sodium Chloride 55 ml @ 200 mls/hr BEDTIME IV 04/06/19 21:00 04/15/19 21:17 04/11/19 21:18 Pantoprazole (Protonix) 40 mg BID ORAL 04/05/19 18:00 05/06/19 08:59 04/07/19 18:10 Sevelamer Carbonate (Renvela) 2,400 mg THREE TIMES A DAY ORAL 04/09/19 13:00 05/06/19 12:59 Height (Feet): 5 Height (Inches): 6.00 Weight (Pounds): 122 General Appearance: no apparent distress Objective No change in overall examination-patient uncooperative and hard to examine Mayank King MD Apr 12, 2019 08:50
--- NOTE | 2019-04-12 09:59 | General Progress Note ---
Assessment/Plan Problem List: (1) Anemia ICD Codes: D64.9 - Anemia, unspecified SNOMED: 421901376 (2) Dermatitis ICD Codes: L30.9 - Dermatitis, unspecified SNOMED: 023702372 (3) Enteritis ICD Codes: K52.9 - Noninfective gastroenteritis and colitis, unspecified SNOMED: 02320670 (4) End stage renal disease on dialysis ICD Codes: N18.6 - End stage renal disease; Z99.2 - Dependence on renal dialysis SNOMED: 092379263 (5) Hypertensive kidney disease ICD Codes: I12.9 - Hypertensive chronic kidney disease with stage 1 through stage 4 chronic kidney disease, or unspecified chronic kidney disease SNOMED: 30710217 (6) Anemia in chronic kidney disease (CKD) ICD Codes: N18.9 - Chronic kidney disease, unspecified; D63.1 - Anemia in chronic kidney disease SNOMED: 380936832 (7) Abdominal pain ICD Codes: R10.9 - Unspecified abdominal pain SNOMED: 99643350 Qualifiers: Qualified Codes: R10.12 - Left upper quadrant pain Status: stable, progressing Assessment/Plan: afebrile esrd on hd check lytes anemia htn vitals holding no acute events Subjective ROS Limited/Unobtainable: Yes Allergies: Coded Allergies: No Known Allergies (Unverified , 04/05/19) Objective Last 24 Hour Vital Signs Date Time Temp Pulse Resp B/P (MAP) Pulse Ox O2 Delivery O2 Flow Rate FiO2 04/12/19 09:00 Room Air 04/12/19 08:00 97.7 80 25 151/71 (97) 94 04/11/19 21:00 Room Air 04/11/19 20:28 71 147/63 04/11/19 20:00 97.8 81 18 147/63 (91) 96 04/11/19 14:00 150/65 04/11/19 12:00 98.2 79 17 150/65 (93) 96 Intake and Output 04/11/19 04/12/19 19:00 07:00 Intake Total 650 ml 295 ml Balance 650 ml 295 ml Intake Oral 650 ml 240 ml IV Total 55 ml # Voids 6 # Bowel Movements 2 1 Height (Feet): 5 Height (Inches): 6.00 Weight (Pounds): 122 Cardiovascular: normal rate Respiratory/Chest: lungs clear Abdomen: soft Nikolay Jackson MD Apr 12, 2019 09:59
--- NOTE | 2019-04-12 10:46 | GI Progress Note ---
Assessment/Plan Problems: (1) Abdominal pain ICD Codes: R10.9 - Unspecified abdominal pain SNOMED: 34876838 Qualifiers: Qualified Codes: R10.12 - Left upper quadrant pain (2) Enteritis ICD Codes: K52.9 - Noninfective gastroenteritis and colitis, unspecified SNOMED: 74082876 (3) Anemia ICD Codes: D64.9 - Anemia, unspecified SNOMED: 338498430 (4) End stage renal disease on dialysis ICD Codes: N18.6 - End stage renal disease; Z99.2 - Dependence on renal dialysis SNOMED: 485107814 Status: stable Status Narrative Discussed with Dr. Novak. Assessment/Plan #Abdominal pain secondary to viral enteritis CT reviewed (04/05/19) >> Questionable minimal wall thickening of left upper quadrant small bowel loops, if real could indicate mild enteritis changes. Zofran PRN for any nausea vomiting Collect stool studies and C. difficile if patient has persistent diarrhea rule out bacterial >> had no diarrhea Pain management #Anemia most likely secondary to chronic kidney disease anemia work up Obtain occult blood stool to evaluate for any GI bleed>>> neg monitor H&H, prn transfusions Prophylactic PPI needs out patient GI procedures given elevated CEA okay for DC per GI standpoint The patient was seen and examined at bedside and all new and available data was reviewed in the patients chart. I agree with the above findings, impression and plan. (Patient seen earlier today. Signature stamp does not reflect patient encounter time.). - Luis Manuel Novak MD Subjective Gastrointestinal/Abdominal: Reports: no symptoms Objective Last 24 Hour Vital Signs Date Time Temp Pulse Resp B/P (MAP) Pulse Ox O2 Delivery O2 Flow Rate FiO2 04/12/19 09:00 Room Air 04/12/19 08:00 97.7 80 25 151/71 (97) 94 04/11/19 21:00 Room Air 04/11/19 20:28 71 147/63 04/11/19 20:00 97.8 81 18 147/63 (91) 96 04/11/19 14:00 150/65 04/11/19 12:00 98.2 79 17 150/65 (93) 96 Intake and Output 04/11/19 04/12/19 19:00 07:00 Intake Total 650 ml 295 ml Balance 650 ml 295 ml Intake Oral 650 ml 240 ml IV Total 55 ml # Voids 6 # Bowel Movements 2 1 Height (Feet): 5 Height (Inches): 6.00 Weight (Pounds): 122 General Appearance: WD/WN, no apparent distress, alert Cardiovascular: normal rate Respiratory/Chest: normal breath sounds, no respiratory distress Abdominal Exam: normal bowel sounds, non tender, soft Extremities: normal range of motion, non-tender Maria D Giron NP Apr 12, 2019 10:46
--- NOTE | 2019-04-12 12:08 | NUR ---
CASE MANAGEMENT:DISCHARGE PLANNING PATIENT HAS BEEN REFERRED TO [facility] P: [phone] F: [phone] Addendum: 04/12/19 at 1323 by LINNETTE LIRA LVN LVN FOLLOW UP CALL MADE TO [facility] IN ADMISSIONS. CONFIRMED RECEIPT OF REFERRAL. WILL REVIEW AND RETURN TO THIS CM.
--- NOTE | 2019-04-12 14:21 | Surgery Progress Note ---
Surgery Progress Note Subjective Additional Comments No acute events. Comfortable. Stable. Objective Last 24 Hour Vital Signs Date Time Temp Pulse Resp B/P (MAP) Pulse Ox O2 Delivery O2 Flow Rate FiO2 04/12/19 12:12 151/71 04/12/19 09:00 Room Air 04/12/19 08:00 97.7 80 25 151/71 (97) 94 04/11/19 21:00 Room Air 04/11/19 20:28 71 147/63 04/11/19 20:00 97.8 81 18 147/63 (91) 96 I&O Intake and Output 04/11/19 04/12/19 19:00 07:00 Intake Total 650 ml 295 ml Balance 650 ml 295 ml Intake Oral 650 ml 240 ml IV Total 55 ml # Voids 6 # Bowel Movements 2 1 Dressing: dry Wound: clean Cardiovascular: RSR Respiratory: clear Abdomen: soft, non-tender, present bowel sounds Extremities: no tenderness, no cyanosis Plan Problems: (1) Abdominal pain Assessment & Plan: 58 year old male with likely enteritis. afebrile HD stable, labs okay CT noted as below abd exam fairly benign constipated okay for diet bowel regimen trend labs iv hydration improving overall hydrated now labs noted dry skin on face, scalp, upper extremities resolved. lower extremity scaly skin, cont skin cream will follow with serial exams thank you Lack of enteric contrast limits assessment of the GI tract. There is no evidence of colonic diverticulosis or diverticulitis. What is probably a normal appendix is visualized. No small bowel distention. There is questionably minimal wall thickening of left upper quadrant small bowel loops. No free or loculated intraperitoneal gas or fluid is evident. There is bilateral inguinal lymphadenopathy, largest nodes measuring up to 2.5 cm long axis dimension by 1.6 cm short axis dimension. There are also prominent less strikingly enlarged iliac chain and retroperitoneal nodes. There are a few prominent peripancreatic nodes as well. The liver is mildly enlarged. Gallbladder demonstrates no definite gallstones. There is equivocal minimal edema of the gallbladder wall, however. No biliary ductal dilatation. The pancreas is unremarkable. The spleen is upper limits of normal in size. The adrenals are unremarkable. The kidneys are atrophic. No pelvic mass other than the lymphadenopathy. The bladder and prostate are unremarkable. There is fairly extensive vascular calcification. The lung bases demonstrate posterior dependent atelectatic changes. The heart is enlarged. The bones are unremarkable. Impression: Limited assessment of the GI tract, due to lack of enteric contrast demonstration Questionable minimal wall thickening of left upper quadrant small bowel loops, if real could indicate mild enteritis changes. Bilateral inguinal lymphadenopathy, nonspecific as regards etiology, could be reactive, neoplastic, or on the basis of a lymphoproliferative disorder. There are also prominent but not frankly enlarged bilateral iliac chain and retroperitoneal lymph nodes. Mild hepatomegaly Atrophic kidneys, in keeping with stated clinical history of chronic renal disease Cardiomegaly Mason Cruz Apr 12, 2019 14:21
--- NOTE | 2019-04-12 14:36 | Infectious Diseases Prog Note ---
Assessment/Plan Assessment/Plan ASSESSMENT: Enteritis/ diarrhea, improved Normal white blood cells Afebrile Anemia COPD History of end-stage renal disease on hemodialysis Anemia PLAN: will monitor the patient off of antibiotics Monitor CBC Monitor BMP GI following Contact isolation due to MRSA colonization Subjective Allergies: Coded Allergies: No Known Allergies (Unverified , 04/05/19) Subjective no abd pain for diarrhea Objective Vital Signs Last 24 Hour Vital Signs Date Time Temp Pulse Resp B/P (MAP) Pulse Ox O2 Delivery O2 Flow Rate FiO2 04/12/19 12:12 151/71 04/12/19 09:00 Room Air 04/12/19 08:00 97.7 80 25 151/71 (97) 94 04/11/19 21:00 Room Air 04/11/19 20:28 71 147/63 04/11/19 20:00 97.8 81 18 147/63 (91) 96 Height (Feet): 5 Height (Inches): 6.00 Weight (Pounds): 122 HEENT: anicteric Respiratory/Chest: normal breath sounds Cardiovascular: regularly irregular Abdomen: no organomegaly Current Medications Medications (Trade) Dose Ordered Sig/Velma Route PRN Reason Start Time Stop Time Status Last Admin Dose Admin Acetaminophen (Tylenol) 650 mg Q4H PRN ORAL Pain Scale (3-5) 04/05/19 13:30 05/05/19 13:29 04/08/19 20:46 Carvedilol (Coreg) 25 mg EVERY 12 HOURS ORAL 04/06/19 21:00 05/05/19 20:59 04/11/19 08:42 Clonidine HCl (Catapres Tab) 0.1 mg Q4H PRN ORAL SBP over 160 04/05/19 13:30 05/05/19 13:29 04/07/19 04:18 Diphenhydramine HCl (Benadryl) 50 mg Q6H PRN ORAL Itching 04/07/19 08:30 05/07/19 08:29 04/07/19 18:10 Docusate Sodium (Colace) 100 mg THREE TIMES A DAY ORAL 04/05/19 18:00 05/05/19 17:59 04/06/19 14:04 Epoetin Shlomo (Epoetin Shlomo(ESRD on dialysis)) 10,000 unit MON-MON-MON SUBQ 04/08/19 21:00 05/08/19 20:59 04/10/19 21:11 Heparin Sodium (Porcine) (Heparin 5000 units/ml) 5,000 units EVERY 12 HOURS SUBQ 04/05/19 21:00 05/05/19 20:59 04/10/19 21:12 Hydralazine HCl (Apresoline) 25 mg Q8HR ORAL 04/11/19 14:00 05/11/19 13:59 Iron Sucrose 100 mg/Sodium Chloride 55 ml @ 200 mls/hr BEDTIME IV 04/06/19 21:00 04/15/19 21:17 04/11/19 21:18 Pantoprazole (Protonix) 40 mg BID ORAL 04/05/19 18:00 05/06/19 08:59 04/07/19 18:10 Sevelamer Carbonate (Renvela) 2,400 mg THREE TIMES A DAY ORAL 04/09/19 13:00 05/06/19 12:59 Tomy Perdomo MD Apr 12, 2019 14:36
[2019-04-12] MEDS ORDERED: NS 275ml ONE (15:57)
[2019-04-12] MEDS ORDERED: Tubing IV Secondary IV ONE (15:57)
--- NOTE | 2019-04-12 16:51 | NUR ---
CASE MANAGEMENT:REVIEW SI;ANEMIA. ENTERITIS. ESRD. DERMATITIS. 97.7 20 25 151/71 94% ON RA NO LABS AVAILABLE IS;HYDRALAZINE PO Q8 HRS COREG PO Q12 HRS IRON SUCROSE IV HS HEPARIN SUBQ Q12 HRS PROTONIX PO BID MED SURG STATUS DCP;SNF PLACEMENT UPON ACCEPTANCE TO SNF
--- NOTE | 2019-04-12 19:28 | NUR ---
HAND-OFF: Report given to breanne.
--- NOTE | 2019-04-12 19:30 | NUR ---
NURSE NOTES: RECEIVED PATIENT FROM SOREN TEAGUE. PATIENT IS ASLEEP, ON ROOM AIR, NO ACUTE DISTRESS NOTED. IV IS INTACT AND PATENT. SKIN IS DRY AND SCALY IN BILATERAL LEGS, ARMS AND FACE. MULTIPLE SCRATCH FLORES ON CHEST AND BACK. BED IS LOCKED AND LOW, BED ALARMS ACTIVE, SIDE RAILS UPX2, AND CALL LIGHT IS WITHIN REACH. WILL CONTINUE TO MONITOR.
[2019-04-12 20:00] VITALS: BP 153/65
[2019-04-12] MEDS: Epoetin Alfa-EPBX(ESRD on dialysis)10,000 unit/ml vial SUBQ SCH (21:19)
--- NOTE | 2019-04-12 22:37 | NUR ---
NURSE NOTES: D/C OLD IV PER LEAKING. RN ATTEMPTED TO START NEW IV. PATIENT REFUSED. CHARGE NURSE AWARE. PATIENT IS AGITATED, SCREAMING AT STAFF, USING FOUL LANGUAGE.
--- NOTE | 2019-04-12 22:51 | NUR ---
NURSE NOTES: PATIENT HAS NO IV ACCESS AT THE MOMENT. INFORMED DR. ABDI.
[2019-04-13] MEDS: HydrALAZINE 25mg tab ORAL SCH ×3 (05:20→21:31)
--- NOTE | 2019-04-13 05:40 | NUR ---
NURSE NOTES: PATIENT HAS NO IV ACCESS AT THE MOMENT. INFORMED DR. RICHARD.
--- NOTE | 2019-04-13 07:30 | NUR ---
NURSE NOTES: RECEIVED PATIENT LYING IN BED WITH SHEET OVER HIS HEAD, AWAKE, ALERT/ORIENTEDX4. VERBALLY RESPONSIVE WITH IMPULSIVE BEHAVIOR. DENIES PAIN/DISCOMFORT NOTED. . NO SIGNS AND SYMPTOMS OF ACUTE CARDIO-RESPIRATORY DISTRESS/SHORTNESS OF BREATH, DENIES CHEST PAIN. REFUSED TO HAVE CHECK HIS AV SHUNT. WILL CONT TO REINFORCE. S/P HD / WITH 2L OUTPUT, PATIENT AWARE AND VIP NOTIFIED BEFORE SHIFT. NO REPORT OF GI DISCOMFORT, NO N/V/D. SIDE RAILS UP X3/BED IN LOWEST POSITION FOR SAFETY. FALL PRECAUTIONS OBSERVED. BED IN LOWEST POSITION/CALL LIGHT WITHIN REACH/BED ALARM ACTIVATED FOR PREVENTIVE MEASURES. WILL CONT THE PLAN OF CARE.
--- NOTE | 2019-04-13 07:58 | NUR ---
HAND-OFF: Report given to SOREN SLATER. IS AWARE OF NO IV ACCESS. ORDERED PSYCH CONSULT WITH .
[2019-04-13 08:00] VITALS: BP 131/64
--- NOTE | 2019-04-13 08:40 | General Progress Note ---
Assessment/Plan Status: stable Assessment/Plan: Progress Note date and time: 04/07/19 0739 Assessment/Plan Status: unchanged Assessment/Plan: GI: Plan Problems: (1) Abdominal pain (2) Enteritis (3) Anemia Plan #Abdominal pain secondary to viral enteritis CT reviewed (04/05/19) >> Questionable minimal wall thickening of left upper quadrant small bowel loops, if real could indicate mild enteritis changes. Zofran PRN for any nausea vomiting Collect stool studies and C. difficile if patient has persistent diarrhea rule out bacterial Pain management #Anemia most likely secondary to chronic kidney disease anemia work up Obtain occult blood stool to evaluate for any GI bleed>>> neg monitor H&H, prn transfusions Prophylactic PPI needs out patient GI procedures given elevated CEA Subjective ROS Limited/Unobtainable: Yes Allergies: Coded Allergies: No Known Allergies (Unverified , 04/05/19) Objective Last 24 Hour Vital Signs Date Time Temp Pulse Resp B/P (MAP) Pulse Ox O2 Delivery O2 Flow Rate FiO2 04/12/19 22:00 139/65 04/12/19 21:19 91 153/65 04/12/19 21:00 Room Air 04/12/19 20:00 97.5 91 17 153/65 (94) 93 04/12/19 12:12 151/71 04/12/19 09:00 Room Air Intake and Output 04/12/19 04/13/19 19:00 07:00 Intake Total 100 ml Output Total 150 ml 0 ml Balance -150 ml 100 ml Other 100 ml Output Urine Total 150 ml 0 ml Height (Feet): 5 Height (Inches): 6.00 Weight (Pounds): 121 General Appearance: alert EENT: normal ENT inspection Neck: supple Cardiovascular: normal rate Respiratory/Chest: decreased breath sounds Abdomen: normal bowel sounds, non tender, soft Extremities: non-tender Luis Manuel Novak MD Apr 13, 2019 08:40
[2019-04-13] MEDS: Heparin 5000 units/ml inj SUBQ SCH ×2 (09:00→21:30)
[2019-04-13] MEDS: Carvedilol 25mg Tab ORAL SCH ×2 (09:00→21:00)
[2019-04-13] MEDS: Docusate 100mg cap ORAL SCH ×3 (09:00→17:15)
--- NOTE | 2019-04-13 10:14 | Infectious Diseases Prog Note ---
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 Subjective Allergies: Coded Allergies: No Known Allergies (Unverified , 04/05/19) Subjective no cough no fever Objective Vital Signs Last 24 Hour Vital Signs Date Time Temp Pulse Resp B/P (MAP) Pulse Ox O2 Delivery O2 Flow Rate FiO2 04/13/19 09:00 Room Air 04/13/19 09:00 79 131/64 04/13/19 08:00 79 20 131/64 (86) 04/12/19 22:00 139/65 04/12/19 21:19 91 153/65 04/12/19 21:00 Room Air 04/12/19 20:00 97.5 91 17 153/65 (94) 93 04/12/19 12:12 151/71 Height (Feet): 5 Height (Inches): 6.00 Weight (Pounds): 121 HEENT: anicteric Respiratory/Chest: no accessory muscle use Cardiovascular: no gallop/murmur Abdomen: no organomegaly Current Medications Medications (Trade) Dose Ordered Sig/Velma Route PRN Reason Start Time Stop Time Status Last Admin Dose Admin Acetaminophen (Tylenol) 650 mg Q4H PRN ORAL Pain Scale (3-5) 04/05/19 13:30 05/05/19 13:29 04/08/19 20:46 Carvedilol (Coreg) 25 mg EVERY 12 HOURS ORAL 04/06/19 21:00 05/05/19 20:59 04/12/19 21:19 Clonidine HCl (Catapres Tab) 0.1 mg Q4H PRN ORAL SBP over 160 04/05/19 13:30 05/05/19 13:29 04/07/19 04:18 Diphenhydramine HCl (Benadryl) 50 mg Q6H PRN ORAL Itching 04/07/19 08:30 05/07/19 08:29 04/07/19 18:10 Docusate Sodium (Colace) 100 mg THREE TIMES A DAY ORAL 04/05/19 18:00 05/05/19 17:59 04/06/19 14:04 Epoetin Shlomo (Epoetin Shlomo(ESRD on dialysis)) 10,000 unit MON-MON-MON SUBQ 04/08/19 21:00 05/08/19 20:59 04/12/19 21:19 Heparin Sodium (Porcine) (Heparin 5000 units/ml) 5,000 units EVERY 12 HOURS SUBQ 04/05/19 21:00 05/05/19 20:59 04/12/19 21:23 Hydralazine HCl (Apresoline) 25 mg Q8HR ORAL 04/11/19 14:00 05/11/19 13:59 Iron Sucrose 100 mg/Sodium Chloride 55 ml @ 200 mls/hr BEDTIME IV 04/06/19 21:00 04/15/19 21:17 04/11/19 21:18 Pantoprazole (Protonix) 40 mg BID ORAL 04/05/19 18:00 05/06/19 08:59 04/07/19 18:10 Sevelamer Carbonate (Renvela) 2,400 mg THREE TIMES A DAY ORAL 04/09/19 13:00 05/06/19 12:59 Tomy Perdomo MD Apr 13, 2019 10:14
--- NOTE | 2019-04-13 11:53 | NUR ---
NURSE NOTES: patient continues to refuse IV reinsertion. medications regimen and vital signs. impulsive and aggressive behaviors remain and use foul words towards nurses. will cont to monitor.
[2019-04-13] MEDS ORDERED: LORazepam 1mg tab ORAL PRN (12:54)
--- NOTE | 2019-04-13 13:13 | Nephrology Progress Note ---
Assessment/Plan Problem List: (1) End stage renal disease on dialysis (2) Dermatitis (3) Abdominal pain (4) Hypertensive kidney disease (5) Anemia in chronic kidney disease (CKD) Assessment ESRD- high K today Abdominal pain- Scaly skin lesions- Anemia of CKD HTN Plan Patient has been discharged but there is a placement issue Was last dialyzed on April 11 and his next dialysis will be on April 14 Will check labs in a.m. if he does not refuse Refuses blood work Adjust blood pressure medication Venofer and Epogen 2D echo EjFx 60% Renal diet when Ok to start PO by GI Phos binders per orders Subjective ROS Limited/Unobtainable: No Constitutional: Reports: malaise Objective Objective Last 24 Hour Vital Signs Date Time Temp Pulse Resp B/P (MAP) Pulse Ox O2 Delivery O2 Flow Rate FiO2 04/13/19 13:11 131/64 04/13/19 09:00 Room Air 04/13/19 09:00 79 131/64 04/13/19 08:00 79 20 131/64 (86) 04/12/19 22:00 139/65 04/12/19 21:19 91 153/65 04/12/19 21:00 Room Air 04/12/19 20:00 97.5 91 17 153/65 (94) 93 Intake and Output 04/12/19 04/13/19 19:00 07:00 Intake Total 100 ml Output Total 150 ml 0 ml Balance -150 ml 100 ml Other 100 ml Output Urine Total 150 ml 0 ml Height (Feet): 5 Height (Inches): 6.00 Weight (Pounds): 121 General Appearance: no apparent distress Objective No change in overall examination-patient uncooperative and hard to examine Mayank King MD Apr 13, 2019 13:13
--- NOTE | 2019-04-13 14:34 | General Progress Note ---
Assessment/Plan Problem List: (1) Anemia ICD Codes: D64.9 - Anemia, unspecified SNOMED: 301572625 (2) Dermatitis ICD Codes: L30.9 - Dermatitis, unspecified SNOMED: 427201454 (3) Enteritis ICD Codes: K52.9 - Noninfective gastroenteritis and colitis, unspecified SNOMED: 86280401 (4) End stage renal disease on dialysis ICD Codes: N18.6 - End stage renal disease; Z99.2 - Dependence on renal dialysis SNOMED: 607590541 (5) Hypertensive kidney disease ICD Codes: I12.9 - Hypertensive chronic kidney disease with stage 1 through stage 4 chronic kidney disease, or unspecified chronic kidney disease SNOMED: 80569100 (6) Anemia in chronic kidney disease (CKD) ICD Codes: N18.9 - Chronic kidney disease, unspecified; D63.1 - Anemia in chronic kidney disease SNOMED: 902990204 (7) Abdominal pain ICD Codes: R10.9 - Unspecified abdominal pain SNOMED: 05329474 Qualifiers: Qualified Codes: R10.12 - Left upper quadrant pain Status: stable, progressing Assessment/Plan: afebrile esrd on hd check lytes h/h stable vitals stable htn no diarrhea agitated consulted dr haynes Subjective ROS Limited/Unobtainable: Yes Allergies: Coded Allergies: No Known Allergies (Unverified , 04/05/19) Objective Last 24 Hour Vital Signs Date Time Temp Pulse Resp B/P (MAP) Pulse Ox O2 Delivery O2 Flow Rate FiO2 04/13/19 13:11 131/64 04/13/19 09:00 Room Air 04/13/19 09:00 79 131/64 04/13/19 08:00 79 20 131/64 (86) 04/12/19 22:00 139/65 04/12/19 21:19 91 153/65 04/12/19 21:00 Room Air 04/12/19 20:00 97.5 91 17 153/65 (94) 93 Intake and Output 04/12/19 04/13/19 19:00 07:00 Intake Total 100 ml Output Total 150 ml 0 ml Balance -150 ml 100 ml Other 100 ml Output Urine Total 150 ml 0 ml Height (Feet): 5 Height (Inches): 6.00 Weight (Pounds): 121 Cardiovascular: normal rate Respiratory/Chest: lungs clear Hadadz,Ali MD Apr 13, 2019 14:34
--- NOTE | 2019-04-13 19:14 | NUR ---
HAND-OFF: Report given to Rashmi.
--- NOTE | 2019-04-13 19:15 | NUR ---
NURSE NOTES: Received patient in bed. Awake, A/O x4. Patient on room air, respirations unlabored. Patient denies pain at this time. No IV site in place, MD aware per previous [employer] endorsement. Right upper arm shunt intact. Bed at the lowest position, bed locked, 1/2 side rails up, call light within reach.
--- NOTE | 2019-04-13 21:31 | NUR ---
NURSE NOTES: Patient refused VS check. Patient also refused PO medication. Jaydan re-educated on the use of HR and BP meds. RN was able to convince patient to take SQ heparin injection. IV venofer unable to give as no IV access and patient continues to refuse venipencture.
--- NOTE | 2019-04-13 22:09 | Surgery Progress Note ---
Surgery Progress Note Subjective Additional Comments barney cute events comfortable sleeping well Objective Last 24 Hour Vital Signs Date Time Temp Pulse Resp B/P (MAP) Pulse Ox O2 Delivery O2 Flow Rate FiO2 04/13/19 13:11 131/64 04/13/19 09:00 Room Air 04/13/19 09:00 79 131/64 04/13/19 08:00 79 20 131/64 (86) I&O Intake and Output 04/12/19 04/13/19 19:00 07:00 Intake Total 100 ml Output Total 150 ml 0 ml Balance -150 ml 100 ml Other 100 ml Output Urine Total 150 ml 0 ml Dressing: dry Wound: clean Cardiovascular: RSR Respiratory: clear Abdomen: soft, non-tender, present bowel sounds Extremities: no tenderness, no cyanosis Plan Problems: (1) Abdominal pain Assessment & Plan: 58 year old male with likely enteritis. afebrile HD stable, labs okay CT noted as below abd exam fairly benign constipated okay for diet bowel regimen trend labs iv hydration improving overall hydrated now labs noted dry skin on face, scalp, upper extremities resolved. lower extremity scaly skin, cont skin cream will follow with serial exams thank you Lack of enteric contrast limits assessment of the GI tract. There is no evidence of colonic diverticulosis or diverticulitis. What is probably a normal appendix is visualized. No small bowel distention. There is questionably minimal wall thickening of left upper quadrant small bowel loops. No free or loculated intraperitoneal gas or fluid is evident. There is bilateral inguinal lymphadenopathy, largest nodes measuring up to 2.5 cm long axis dimension by 1.6 cm short axis dimension. There are also prominent less strikingly enlarged iliac chain and retroperitoneal nodes. There are a few prominent peripancreatic nodes as well. The liver is mildly enlarged. Gallbladder demonstrates no definite gallstones. There is equivocal minimal edema of the gallbladder wall, however. No biliary ductal dilatation. The pancreas is unremarkable. The spleen is upper limits of normal in size. The adrenals are unremarkable. The kidneys are atrophic. No pelvic mass other than the lymphadenopathy. The bladder and prostate are unremarkable. There is fairly extensive vascular calcification. The lung bases demonstrate posterior dependent atelectatic changes. The heart is enlarged. The bones are unremarkable. Impression: Limited assessment of the GI tract, due to lack of enteric contrast demonstration Questionable minimal wall thickening of left upper quadrant small bowel loops, if real could indicate mild enteritis changes. Bilateral inguinal lymphadenopathy, nonspecific as regards etiology, could be reactive, neoplastic, or on the basis of a lymphoproliferative disorder. There are also prominent but not frankly enlarged bilateral iliac chain and retroperitoneal lymph nodes. Mild hepatomegaly Atrophic kidneys, in keeping with stated clinical history of chronic renal disease Cardiomegaly Mason Cruz Apr 13, 2019 22:09
[2019-04-14 04:00] VITALS: BP 144/60
[2019-04-14] MEDS: HydrALAZINE 25mg tab ORAL SCH ×3 (06:00→22:00)
--- NOTE | 2019-04-14 06:00 | NUR ---
NURSE NOTES: Patient refused morning BP meds. Patient re-educated on use of BP meds. Still refused. VS stable.
--- NOTE | 2019-04-14 07:06 | NUR ---
NURSE NOTES: Patient refused AM labs. Housekeeper/Custodian/Laundry Worker will try again at a later time.
--- NOTE | 2019-04-14 07:25 | NUR ---
HAND-OFF: Report given to Farzana DENNISON.
--- NOTE | 2019-04-14 08:04 | General Progress Note ---
Assessment/Plan Status: stable, progressing Assessment/Plan: Progress Note date and time: 04/07/19 0739 Assessment/Plan Status: unchanged Assessment/Plan: GI: Plan Problems: (1) Abdominal pain (2) Enteritis (3) Anemia (4) elevated CEA Plan #Abdominal pain secondary to viral enteritis CT reviewed (04/05/19) >> Questionable minimal wall thickening of left upper quadrant small bowel loops, if real could indicate mild enteritis changes. Zofran PRN for any nausea vomiting Collect stool studies and C. difficile if patient has persistent diarrhea rule out bacterial Pain management #Anemia most likely secondary to chronic kidney disease anemia work up Obtain occult blood stool to evaluate for any GI bleed>>> neg monitor H&H, prn transfusions Prophylactic PPI needs out patient GI procedures given elevated CEA Subjective ROS Limited/Unobtainable: Yes Allergies: Coded Allergies: No Known Allergies (Unverified , 04/05/19) Objective Last 24 Hour Vital Signs Date Time Temp Pulse Resp B/P (MAP) Pulse Ox O2 Delivery O2 Flow Rate FiO2 04/14/19 06:00 144/60 04/14/19 04:00 98.0 69 20 144/60 (88) 96 04/13/19 21:00 Room Air 04/13/19 13:11 131/64 04/13/19 09:00 Room Air 04/13/19 09:00 79 131/64 Intake and Output 04/13/19 04/14/19 19:00 07:00 Intake Total 1560 ml 300 ml Output Total 2 ml Balance 1560 ml 298 ml Intake Oral 1560 ml 300 ml Output Urine Total 2 ml # Voids 1 # Bowel Movements 4 Height (Feet): 5 Height (Inches): 6.00 Weight (Pounds): 126 General Appearance: alert EENT: normal ENT inspection Neck: supple Cardiovascular: normal rate Respiratory/Chest: decreased breath sounds Abdomen: normal bowel sounds, non tender, soft Extremities: non-tender Luis Manuel Novak MD Apr 14, 2019 08:04
--- NOTE | 2019-04-14 08:10 | NUR ---
NURSE NOTES: Received patient in bed, asleep with the head covered by the blanket. Patient refused AM labs per devulcanizer loader. No IV site in place, MD aware per previous RN endorsement. EZRA AV shunt in place. Bed at the lowest position, bed locked, 2 side rails up, call light within reach. Will continue to monitor patient and follow up with the plan of care.
[2019-04-14] MEDS: Heparin 5000 units/ml inj SUBQ SCH ×2 (09:00→22:17)
[2019-04-14] MEDS: Carvedilol 25mg Tab ORAL SCH ×2 (09:00→21:00)
[2019-04-14] MEDS: Docusate 100mg cap ORAL SCH ×3 (09:00→17:47)
--- NOTE | 2019-04-14 13:32 | Surgery Progress Note ---
Surgery Progress Note Subjective Additional Comments no acute events doing well comfortable Objective Last 24 Hour Vital Signs Date Time Temp Pulse Resp B/P (MAP) Pulse Ox O2 Delivery O2 Flow Rate FiO2 04/14/19 09:00 69 144/60 04/14/19 09:00 Room Air 04/14/19 06:00 144/60 04/14/19 04:00 98.0 69 20 144/60 (88) 96 04/13/19 21:00 Room Air I&O Intake and Output 04/13/19 04/14/19 19:00 07:00 Intake Total 1560 ml 300 ml Output Total 2 ml Balance 1560 ml 298 ml Intake Oral 1560 ml 300 ml Output Urine Total 2 ml # Voids 1 # Bowel Movements 4 Dressing: dry Cardiovascular: RSR Respiratory: clear Abdomen: soft, non-tender, present bowel sounds Extremities: no tenderness, no cyanosis Plan Problems: (1) Abdominal pain Assessment & Plan: 58 year old male with likely enteritis. afebrile HD stable, labs okay CT noted as below abd exam fairly benign constipated okay for diet bowel regimen trend labs iv hydration improving overall hydrated now labs noted dry skin on face, scalp, upper extremities resolved. lower extremity scaly skin, cont skin cream will follow with serial exams thank you Lack of enteric contrast limits assessment of the GI tract. There is no evidence of colonic diverticulosis or diverticulitis. What is probably a normal appendix is visualized. No small bowel distention. There is questionably minimal wall thickening of left upper quadrant small bowel loops. No free or loculated intraperitoneal gas or fluid is evident. There is bilateral inguinal lymphadenopathy, largest nodes measuring up to 2.5 cm long axis dimension by 1.6 cm short axis dimension. There are also prominent less strikingly enlarged iliac chain and retroperitoneal nodes. There are a few prominent peripancreatic nodes as well. The liver is mildly enlarged. Gallbladder demonstrates no definite gallstones. There is equivocal minimal edema of the gallbladder wall, however. No biliary ductal dilatation. The pancreas is unremarkable. The spleen is upper limits of normal in size. The adrenals are unremarkable. The kidneys are atrophic. No pelvic mass other than the lymphadenopathy. The bladder and prostate are unremarkable. There is fairly extensive vascular calcification. The lung bases demonstrate posterior dependent atelectatic changes. The heart is enlarged. The bones are unremarkable. Impression: Limited assessment of the GI tract, due to lack of enteric contrast demonstration Questionable minimal wall thickening of left upper quadrant small bowel loops, if real could indicate mild enteritis changes. Bilateral inguinal lymphadenopathy, nonspecific as regards etiology, could be reactive, neoplastic, or on the basis of a lymphoproliferative disorder. There are also prominent but not frankly enlarged bilateral iliac chain and retroperitoneal lymph nodes. Mild hepatomegaly Atrophic kidneys, in keeping with stated clinical history of chronic renal disease Cardiomegaly Mason Cruz Apr 14, 2019 13:32
--- NOTE | 2019-04-14 14:32 | Nephrology Progress Note ---
Assessment/Plan Problem List: (1) End stage renal disease on dialysis (2) Dermatitis (3) Abdominal pain (4) Hypertensive kidney disease (5) Anemia in chronic kidney disease (CKD) Assessment ESRD- high K today Abdominal pain- Scaly skin lesions- Anemia of CKD HTN Plan Patient has been discharged but there is a placement issue Was last dialyzed on April 11 and his next dialysis will be on April 14 Will check labs in a.m. if he does not refuse Refuses blood work Adjust blood pressure medication Venofer and Epogen 2D echo EjFx 60% Renal diet when Ok to start PO by GI Phos binders per orders Subjective ROS Limited/Unobtainable: No Constitutional: Reports: malaise, weakness Objective Objective Last 24 Hour Vital Signs Date Time Temp Pulse Resp B/P (MAP) Pulse Ox O2 Delivery O2 Flow Rate FiO2 04/14/19 09:00 69 144/60 04/14/19 09:00 Room Air 04/14/19 06:00 144/60 04/14/19 04:00 98.0 69 20 144/60 (88) 96 04/13/19 21:00 Room Air Intake and Output 04/13/19 04/14/19 19:00 07:00 Intake Total 1560 ml 300 ml Output Total 2 ml Balance 1560 ml 298 ml Intake Oral 1560 ml 300 ml Output Urine Total 2 ml # Voids 1 # Bowel Movements 4 Height (Feet): 5 Height (Inches): 6.00 Weight (Pounds): 126 General Appearance: no apparent distress, other - Remains uncooperative Cardiovascular: normal rate Objective No change in overall examination-patient uncooperative and hard to examine Mayank King MD Apr 14, 2019 14:32
--- NOTE | 2019-04-14 19:27 | NUR ---
HAND-OFF: Report given to JESI Johnston.
--- NOTE | 2019-04-14 19:30 | NUR ---
NURSE NOTES: Received patient in bed. Awake, A/O x4. Patient denies pain. On room air, respirations unlabored. Per previous RN, patient continues to refuse care. No IV access, previously made aware. Right upper arm HD shunt access intact.
--- NOTE | 2019-04-14 20:50 | General Progress Note ---
Assessment/Plan Problem List: (1) Anemia ICD Codes: D64.9 - Anemia, unspecified SNOMED: 862946757 (2) Dermatitis ICD Codes: L30.9 - Dermatitis, unspecified SNOMED: 030162732 (3) Enteritis ICD Codes: K52.9 - Noninfective gastroenteritis and colitis, unspecified SNOMED: 99819596 (4) End stage renal disease on dialysis ICD Codes: N18.6 - End stage renal disease; Z99.2 - Dependence on renal dialysis SNOMED: 828406590 (5) Hypertensive kidney disease ICD Codes: I12.9 - Hypertensive chronic kidney disease with stage 1 through stage 4 chronic kidney disease, or unspecified chronic kidney disease SNOMED: 76864567 (6) Anemia in chronic kidney disease (CKD) ICD Codes: N18.9 - Chronic kidney disease, unspecified; D63.1 - Anemia in chronic kidney disease SNOMED: 846866465 (7) Abdominal pain ICD Codes: R10.9 - Unspecified abdominal pain SNOMED: 01641540 Qualifiers: Qualified Codes: R10.12 - Left upper quadrant pain Status: stable, progressing Assessment/Plan: esrd on hd afebrile less agitated reviewed chart and labs consulted dr haynes Subjective ROS Limited/Unobtainable: Yes Allergies: Coded Allergies: No Known Allergies (Unverified , 04/05/19) Objective Last 24 Hour Vital Signs Date Time Temp Pulse Resp B/P (MAP) Pulse Ox O2 Delivery O2 Flow Rate FiO2 04/14/19 09:00 69 144/60 04/14/19 09:00 Room Air 04/14/19 06:00 144/60 04/14/19 04:00 98.0 69 20 144/60 (88) 96 04/13/19 21:00 Room Air Intake and Output 04/13/19 04/14/19 19:00 07:00 Intake Total 1560 ml 300 ml Output Total 2 ml Balance 1560 ml 298 ml Intake Oral 1560 ml 300 ml Output Urine Total 2 ml # Voids 1 # Bowel Movements 4 Height (Feet): 5 Height (Inches): 6.00 Weight (Pounds): 126 Neck: supple Cardiovascular: normal rate Respiratory/Chest: lungs clear Abdomen: soft Nikolay Jackson MD Apr 14, 2019 20:50
--- NOTE | 2019-04-14 22:00 | NUR ---
NURSE NOTES: Patient refused 2100 PO meds. RN was able to convince patient to take SQ heparin. Heparin given late d/t patient refusal. Patient re-educated on use of BP and HR meds. Still refused. Attempted to start IV and patient began to scream. Venofer unable to give.
[2019-04-15] MEDS ORDERED: LORazepam 1mg tab ORAL PRN (04:15)
--- NOTE | 2019-04-15 04:20 | NUR ---
NURSE NOTES: Dr. Peralta notified of patients refusal of VS, IV access and PO meds. New orders given.
[2019-04-15] MEDS: HydrALAZINE 25mg tab ORAL SCH ×2 (06:00→13:19)
--- NOTE | 2019-04-15 07:47 | General Progress Note ---
Assessment/Plan Status: stable, progressing Assessment/Plan: Progress Note date and time: 04/07/19 0739 Assessment/Plan Status: unchanged Assessment/Plan: GI: Plan Problems: (1) Abdominal pain (2) Enteritis (3) Anemia (4) elevated CEA Plan #Abdominal pain secondary to viral enteritis CT reviewed (04/05/19) >> Questionable minimal wall thickening of left upper quadrant small bowel loops, if real could indicate mild enteritis changes. Zofran PRN for any nausea vomiting Collect stool studies and C. difficile if patient has persistent diarrhea rule out bacterial Pain management #Anemia most likely secondary to chronic kidney disease anemia work up Obtain occult blood stool to evaluate for any GI bleed>>> neg monitor H&H, prn transfusions Prophylactic PPI needs out patient GI procedures given elevated CEA Subjective ROS Limited/Unobtainable: Yes Allergies: Coded Allergies: No Known Allergies (Unverified , 04/05/19) Objective Last 24 Hour Vital Signs Date Time Temp Pulse Resp B/P (MAP) Pulse Ox O2 Delivery O2 Flow Rate FiO2 04/14/19 21:00 Room Air 04/14/19 09:00 69 144/60 04/14/19 09:00 Room Air Intake and Output 04/14/19 04/15/19 19:00 07:00 Intake Total 840 ml Balance 840 ml Intake Oral 840 ml # Voids 2 2 # Bowel Movements 1 1 Height (Feet): 5 Height (Inches): 6.00 Weight (Pounds): 125 General Appearance: alert EENT: normal ENT inspection Neck: supple Cardiovascular: normal rate Respiratory/Chest: decreased breath sounds Abdomen: normal bowel sounds, non tender, soft Extremities: non-tender Luis Manuel Novak MD Apr 15, 2019 07:47
--- NOTE | 2019-04-15 07:53 | NUR ---
HAND-OFF: Report given to Farzana DENNISON.
[2019-04-15 08:10] LABS: BASOPHILS % (AUTO) 0.9 % (0.0-2.0); EOSINOPHILS % (AUTO) 9.2 % (0.0-3.0); HEMATOCRIT 24.5 % (42.0-52.0); HEMOGLOBIN 8.2 G/DL (14.2-18.0); LYMPHOCYTES % (AUTO) 20.2 % (20.0-45.0); MEAN CORPUSCULAR VOLUME 95 FL (80-99); MONOCYTES % (AUTO) 11.7 % (1.0-10.0); NEUTROPHILS % (AUTO) 57.9 % (45.0-75.0); PLATELET COUNT 215 K/UL (150-450); RED BLOOD COUNT 2.57 M/UL (4.70-6.10); RED CELL DISTRIBUTION WIDTH 13.2 % (11.6-14.8); WHITE BLOOD COUNT 9.9 K/UL (4.8-10.8)
[2019-04-15 08:18] LABS: ANION GAP 13 mmol/L (5-15); BLOOD UREA NITROGEN 60 mg/dL (7-18); CALCIUM 7.2 MG/DL (8.5-10.1); CARBON DIOXIDE 24 MMOL/L (21-32); CHLORIDE 101 MMOL/L (98-107); CREATININE 8.8 MG/DL (0.55-1.30); POTASSIUM 4.7 MMOL/L (3.5-5.1); SODIUM 138 MMOL/L (136-145)
[2019-04-15 08:24] LABS: ALANINE AMINOTRANSFERASE 18 U/L (12-78); ALBUMIN 2.1 G/DL (3.4-5.0); ALKALINE PHOSPHATASE 83 U/L (46-116); ASPARTATE AMINO TRANSFERASE 17 U/L (15-37); BILIRUBIN,DIRECT 0.1 MG/DL (0.0-0.3); BILIRUBIN,TOTAL 0.4 MG/DL (0.2-1.0); PHOSPHORUS 4.4 MG/DL (2.5-4.9)
[2019-04-15] MEDS: Carvedilol 25mg Tab ORAL SCH ×2 (09:00→20:56)
[2019-04-15] MEDS: Heparin 5000 units/ml inj SUBQ SCH ×2 (09:00→20:57)
[2019-04-15] MEDS ORDERED: Haloperidol Decanoate (Long Acting) 50mg Inj IM SCH (09:00)
[2019-04-15] MEDS: Docusate 100mg cap ORAL SCH ×3 (09:00→18:00)
--- NOTE | 2019-04-15 11:11 | General Progress Note ---
Assessment/Plan Problem List: (1) Anemia ICD Codes: D64.9 - Anemia, unspecified SNOMED: 799687775 (2) Dermatitis ICD Codes: L30.9 - Dermatitis, unspecified SNOMED: 781957919 (3) Enteritis ICD Codes: K52.9 - Noninfective gastroenteritis and colitis, unspecified SNOMED: 02649809 (4) End stage renal disease on dialysis ICD Codes: N18.6 - End stage renal disease; Z99.2 - Dependence on renal dialysis SNOMED: 092078563 (5) Hypertensive kidney disease ICD Codes: I12.9 - Hypertensive chronic kidney disease with stage 1 through stage 4 chronic kidney disease, or unspecified chronic kidney disease SNOMED: 42970290 (6) Anemia in chronic kidney disease (CKD) ICD Codes: N18.9 - Chronic kidney disease, unspecified; D63.1 - Anemia in chronic kidney disease SNOMED: 091201445 (7) Abdominal pain ICD Codes: R10.9 - Unspecified abdominal pain SNOMED: 58366298 Qualifiers: Qualified Codes: R10.12 - Left upper quadrant pain Status: stable, progressing Assessment/Plan: esrd on hd htn bp is improving afebrile nac Subjective ROS Limited/Unobtainable: Yes Allergies: Coded Allergies: No Known Allergies (Unverified , 04/05/19) Objective Last 24 Hour Vital Signs Date Time Temp Pulse Resp B/P (MAP) Pulse Ox O2 Delivery O2 Flow Rate FiO2 04/14/19 21:00 Room Air Intake and Output 04/14/19 04/15/19 19:00 07:00 Intake Total 840 ml Balance 840 ml Intake Oral 840 ml # Voids 2 2 # Bowel Movements 1 1 Laboratory Tests 04/15/19 05:00: White Blood Count 9.9, Red Blood Count 2.57L, Hemoglobin 8.2L, Hematocrit 24.5L , Mean Corpuscular Volume 95, Mean Corpuscular Hemoglobin 31.9H, Mean Corpuscular Hemoglobin Concent 33.5, Red Cell Distribution Width 13.2, Platelet Count 215, Mean Platelet Volume 4.1L, Neutrophils (%) (Auto) 57.9, Lymphocytes ( %) (Auto) 20.2, Monocytes (%) (Auto) 11.7H, Eosinophils (%) (Auto) 9.2H, Basophils (%) (Auto) 0.9, Sodium Level 138, Potassium Level 4.7, Chloride Level 101, Carbon Dioxide Level 24, Anion Gap 13, Blood Urea Nitrogen 60H, Creatinine 8.8H, Estimat Glomerular Filtration Rate 6.2, Glucose Level 99, Calcium Level 7.2L, Phosphorus Level 4.4, Magnesium Level 2.1, Total Bilirubin 0.4, Direct Bilirubin 0.1, Aspartate Amino Transf (AST/SGOT) 17, Alanine Aminotransferase ( ALT/SGPT) 18, Alkaline Phosphatase 83, Total Protein 6.9, Albumin 2.1L Height (Feet): 5 Height (Inches): 6.00 Weight (Pounds): 125 Cardiovascular: normal rate Respiratory/Chest: lungs clear Abdomen: soft Nikolay Jackson MD Apr 15, 2019 11:11
--- NOTE | 2019-04-15 12:28 | Surgery Progress Note ---
Surgery Progress Note Subjective Additional Comments stable comfortable no complaints Objective Last 24 Hour Vital Signs Date Time Temp Pulse Resp B/P (MAP) Pulse Ox O2 Delivery O2 Flow Rate FiO2 04/14/19 21:00 Room Air I&O Intake and Output 04/14/19 04/15/19 19:00 07:00 Intake Total 840 ml Balance 840 ml Intake Oral 840 ml # Voids 2 2 # Bowel Movements 1 1 Dressing: dry Wound: clean Cardiovascular: RSR Respiratory: clear Abdomen: soft, non-tender, present bowel sounds Extremities: no edema, no tenderness Laboratory Tests Test 04/15/19 05:00 White Blood Count 9.9 K/UL (4.8-10.8) Red Blood Count 2.57 M/UL (4.70-6.10) L Hemoglobin 8.2 G/DL (14.2-18.0) L Hematocrit 24.5 % (42.0-52.0) L Mean Corpuscular Volume 95 FL (80-99) Mean Corpuscular Hemoglobin 31.9 PG (27.0-31.0) H Mean Corpuscular Hemoglobin Concent 33.5 G/DL (32.0-36.0) Red Cell Distribution Width 13.2 % (11.6-14.8) Platelet Count 215 K/UL (150-450) Mean Platelet Volume 4.1 FL (6.5-10.1) L Neutrophils (%) (Auto) 57.9 % (45.0-75.0) Lymphocytes (%) (Auto) 20.2 % (20.0-45.0) Monocytes (%) (Auto) 11.7 % (1.0-10.0) H Eosinophils (%) (Auto) 9.2 % (0.0-3.0) H Basophils (%) (Auto) 0.9 % (0.0-2.0) Sodium Level 138 MMOL/L (136-145) Potassium Level 4.7 MMOL/L (3.5-5.1) Chloride Level 101 MMOL/L (98-107) Carbon Dioxide Level 24 MMOL/L (21-32) Anion Gap 13 mmol/L (5-15) Blood Urea Nitrogen 60 mg/dL (7-18) H Creatinine 8.8 MG/DL (0.55-1.30) H Estimat Glomerular Filtration Rate 6.2 mL/min (>60) Glucose Level 99 MG/DL (74-106) Calcium Level 7.2 MG/DL (8.5-10.1) L Phosphorus Level 4.4 MG/DL (2.5-4.9) Magnesium Level 2.1 MG/DL (1.8-2.4) Total Bilirubin 0.4 MG/DL (0.2-1.0) Direct Bilirubin 0.1 MG/DL (0.0-0.3) Aspartate Amino Transf (AST/SGOT) 17 U/L (15-37) Alanine Aminotransferase (ALT/SGPT) 18 U/L (12-78) Alkaline Phosphatase 83 U/L (46-116) Total Protein 6.9 G/DL (6.4-8.2) Albumin 2.1 G/DL (3.4-5.0) L Plan Problems: (1) Abdominal pain Assessment & Plan: 58 year old male with likely enteritis. afebrile HD stable, labs okay CT noted as below abd exam fairly benign constipated okay for diet bowel regimen trend labs iv hydration improving overall hydrated now labs noted dry skin on face, scalp, upper extremities resolved. lower extremity scaly skin, cont skin cream will follow with serial exams thank you Lack of enteric contrast limits assessment of the GI tract. There is no evidence of colonic diverticulosis or diverticulitis. What is probably a normal appendix is visualized. No small bowel distention. There is questionably minimal wall thickening of left upper quadrant small bowel loops. No free or loculated intraperitoneal gas or fluid is evident. There is bilateral inguinal lymphadenopathy, largest nodes measuring up to 2.5 cm long axis dimension by 1.6 cm short axis dimension. There are also prominent less strikingly enlarged iliac chain and retroperitoneal nodes. There are a few prominent peripancreatic nodes as well. The liver is mildly enlarged. Gallbladder demonstrates no definite gallstones. There is equivocal minimal edema of the gallbladder wall, however. No biliary ductal dilatation. The pancreas is unremarkable. The spleen is upper limits of normal in size. The adrenals are unremarkable. The kidneys are atrophic. No pelvic mass other than the lymphadenopathy. The bladder and prostate are unremarkable. There is fairly extensive vascular calcification. The lung bases demonstrate posterior dependent atelectatic changes. The heart is enlarged. The bones are unremarkable. Impression: Limited assessment of the GI tract, due to lack of enteric contrast demonstration Questionable minimal wall thickening of left upper quadrant small bowel loops, if real could indicate mild enteritis changes. Bilateral inguinal lymphadenopathy, nonspecific as regards etiology, could be reactive, neoplastic, or on the basis of a lymphoproliferative disorder. There are also prominent but not frankly enlarged bilateral iliac chain and retroperitoneal lymph nodes. Mild hepatomegaly Atrophic kidneys, in keeping with stated clinical history of chronic renal disease Cardiomegaly Msaon Cruz Apr 15, 2019 12:28
--- NOTE | 2019-04-15 12:38 | Nephrology Progress Note ---
Assessment/Plan Problem List: (1) End stage renal disease on dialysis (2) Dermatitis (3) Abdominal pain (4) Hypertensive kidney disease (5) Anemia in chronic kidney disease (CKD) Assessment ESRD- high K today Abdominal pain- Scaly skin lesions- Anemia of CKD HTN Plan Patient has been discharged but there is a placement issue Was last dialyzed on April 11 and his next dialysis will be on April 14 Today's labs are reviewed Refuses blood work Adjust blood pressure medication Venofer and Epogen 2D echo EjFx 60% Renal diet when Ok to start PO by GI Phos binders per orders Subjective ROS Limited/Unobtainable: No Constitutional: Reports: malaise, weakness Objective Objective Last 24 Hour Vital Signs Date Time Temp Pulse Resp B/P (MAP) Pulse Ox O2 Delivery O2 Flow Rate FiO2 04/15/19 09:00 Room Air 04/14/19 21:00 Room Air Intake and Output 04/14/19 04/15/19 19:00 07:00 Intake Total 840 ml Balance 840 ml Intake Oral 840 ml # Voids 2 2 # Bowel Movements 1 1 Current Medications Medications (Trade) Dose Ordered Sig/Velma Route PRN Reason Start Time Stop Time Status Last Admin Dose Admin Acetaminophen (Tylenol) 650 mg Q4H PRN ORAL Pain Scale (3-5) 04/05/19 13:30 05/05/19 13:29 04/08/19 20:46 Carvedilol (Coreg) 25 mg EVERY 12 HOURS ORAL 04/06/19 21:00 05/05/19 20:59 04/12/19 21:19 Clonidine HCl (Catapres Tab) 0.1 mg Q4H PRN ORAL SBP over 160 04/05/19 13:30 05/05/19 13:29 04/07/19 04:18 Diphenhydramine HCl (Benadryl) 50 mg Q6H PRN ORAL Itching 04/07/19 08:30 05/07/19 08:29 04/07/19 18:10 Docusate Sodium (Colace) 100 mg THREE TIMES A DAY ORAL 04/05/19 18:00 05/05/19 17:59 04/13/19 17:15 Epoetin Shlomo (Epoetin Shlomo(ESRD on dialysis)) 10,000 unit MON-MON-MON SUBQ 04/08/19 21:00 05/08/19 20:59 04/12/19 21:19 Heparin Sodium (Porcine) (Heparin 5000 units/ml) 5,000 units EVERY 12 HOURS SUBQ 04/05/19 21:00 05/05/19 20:59 04/14/19 22:17 Hydralazine HCl (Apresoline) 25 mg Q8HR ORAL 04/11/19 14:00 05/11/19 13:59 Iron Sucrose 100 mg/Sodium Chloride 55 ml @ 200 mls/hr BEDTIME IV 04/06/19 21:00 04/15/19 21:17 04/11/19 21:18 Lorazepam (Ativan) 1 mg Q6H PRN ORAL For Anxiety 04/15/19 04:15 04/22/19 04:14 04/15/19 04:37 Pantoprazole (Protonix) 40 mg BID ORAL 04/05/19 18:00 05/06/19 08:59 04/13/19 17:15 Risperidone (RisperDAL) 1 mg BID ORAL 04/13/19 18:00 05/13/19 17:59 04/13/19 17:15 Sevelamer Carbonate (Renvela) 2,400 mg THREE TIMES A DAY ORAL 04/09/19 13:00 05/06/19 12:59 04/13/19 17:15 Laboratory Tests 04/15/19 05:00: White Blood Count 9.9, Red Blood Count 2.57L, Hemoglobin 8.2L, Hematocrit 24.5L , Mean Corpuscular Volume 95, Mean Corpuscular Hemoglobin 31.9H, Mean Corpuscular Hemoglobin Concent 33.5, Red Cell Distribution Width 13.2, Platelet Count 215, Mean Platelet Volume 4.1L, Neutrophils (%) (Auto) 57.9, Lymphocytes ( %) (Auto) 20.2, Monocytes (%) (Auto) 11.7H, Eosinophils (%) (Auto) 9.2H, Basophils (%) (Auto) 0.9, Sodium Level 138, Potassium Level 4.7, Chloride Level 101, Carbon Dioxide Level 24, Anion Gap 13, Blood Urea Nitrogen 60H, Creatinine 8.8H, Estimat Glomerular Filtration Rate 6.2, Glucose Level 99, Calcium Level 7.2L, Phosphorus Level 4.4, Magnesium Level 2.1, Total Bilirubin 0.4, Direct Bilirubin 0.1, Aspartate Amino Transf (AST/SGOT) 17, Alanine Aminotransferase ( ALT/SGPT) 18, Alkaline Phosphatase 83, Total Protein 6.9, Albumin 2.1L Height (Feet): 5 Height (Inches): 6.00 Weight (Pounds): 125 General Appearance: no apparent distress, lethargic Objective No change in overall examination-patient uncooperative and hard to examine Mayank King MD Apr 15, 2019 12:37
--- NOTE | 2019-04-15 13:51 | Infectious Diseases Prog Note ---
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 Subjective Allergies: Coded Allergies: No Known Allergies (Unverified , 04/05/19) Subjective comfortable Objective Vital Signs Last 24 Hour Vital Signs Date Time Temp Pulse Resp B/P (MAP) Pulse Ox O2 Delivery O2 Flow Rate FiO2 04/15/19 09:00 Room Air 04/14/19 21:00 Room Air Height (Feet): 5 Height (Inches): 6.00 Weight (Pounds): 125 HEENT: anicteric Respiratory/Chest: normal breath sounds Cardiovascular: regularly irregular Abdomen: no organomegaly Laboratory Tests Test 04/15/19 05:00 White Blood Count 9.9 K/UL (4.8-10.8) Red Blood Count 2.57 M/UL (4.70-6.10) L Hemoglobin 8.2 G/DL (14.2-18.0) L Hematocrit 24.5 % (42.0-52.0) L Mean Corpuscular Volume 95 FL (80-99) Mean Corpuscular Hemoglobin 31.9 PG (27.0-31.0) H Mean Corpuscular Hemoglobin Concent 33.5 G/DL (32.0-36.0) Red Cell Distribution Width 13.2 % (11.6-14.8) Platelet Count 215 K/UL (150-450) Mean Platelet Volume 4.1 FL (6.5-10.1) L Neutrophils (%) (Auto) 57.9 % (45.0-75.0) Lymphocytes (%) (Auto) 20.2 % (20.0-45.0) Monocytes (%) (Auto) 11.7 % (1.0-10.0) H Eosinophils (%) (Auto) 9.2 % (0.0-3.0) H Basophils (%) (Auto) 0.9 % (0.0-2.0) Sodium Level 138 MMOL/L (136-145) Potassium Level 4.7 MMOL/L (3.5-5.1) Chloride Level 101 MMOL/L (98-107) Carbon Dioxide Level 24 MMOL/L (21-32) Anion Gap 13 mmol/L (5-15) Blood Urea Nitrogen 60 mg/dL (7-18) H Creatinine 8.8 MG/DL (0.55-1.30) H Estimat Glomerular Filtration Rate 6.2 mL/min (>60) Glucose Level 99 MG/DL (74-106) Calcium Level 7.2 MG/DL (8.5-10.1) L Phosphorus Level 4.4 MG/DL (2.5-4.9) Magnesium Level 2.1 MG/DL (1.8-2.4) Total Bilirubin 0.4 MG/DL (0.2-1.0) Direct Bilirubin 0.1 MG/DL (0.0-0.3) Aspartate Amino Transf (AST/SGOT) 17 U/L (15-37) Alanine Aminotransferase (ALT/SGPT) 18 U/L (12-78) Alkaline Phosphatase 83 U/L (46-116) Total Protein 6.9 G/DL (6.4-8.2) Albumin 2.1 G/DL (3.4-5.0) L Current Medications Medications (Trade) Dose Ordered Sig/Velma Route PRN Reason Start Time Stop Time Status Last Admin Dose Admin Acetaminophen (Tylenol) 650 mg Q4H PRN ORAL Pain Scale (3-5) 04/05/19 13:30 05/05/19 13:29 04/08/19 20:46 Carvedilol (Coreg) 25 mg EVERY 12 HOURS ORAL 04/06/19 21:00 05/05/19 20:59 04/12/19 21:19 Clonidine HCl (Catapres Tab) 0.1 mg Q4H PRN ORAL SBP over 160 04/05/19 13:30 05/05/19 13:29 04/07/19 04:18 Diphenhydramine HCl (Benadryl) 50 mg Q6H PRN ORAL Itching 04/07/19 08:30 05/07/19 08:29 04/07/19 18:10 Docusate Sodium (Colace) 100 mg THREE TIMES A DAY ORAL 04/05/19 18:00 05/05/19 17:59 04/13/19 17:15 Epoetin Shlomo (Epoetin Shlomo(ESRD on dialysis)) 10,000 unit MON-MON-MON SUBQ 04/08/19 21:00 05/08/19 20:59 04/12/19 21:19 Heparin Sodium (Porcine) (Heparin 5000 units/ml) 5,000 units EVERY 12 HOURS SUBQ 04/05/19 21:00 05/05/19 20:59 04/14/19 22:17 Hydralazine HCl (Apresoline) 25 mg Q8HR ORAL 04/11/19 14:00 05/11/19 13:59 Iron Sucrose 100 mg/Sodium Chloride 55 ml @ 200 mls/hr BEDTIME IV 04/06/19 21:00 04/15/19 21:17 04/11/19 21:18 Lorazepam (Ativan) 1 mg Q6H PRN ORAL For Anxiety 04/15/19 04:15 04/22/19 04:14 04/15/19 04:37 Pantoprazole (Protonix) 40 mg BID ORAL 04/05/19 18:00 05/06/19 08:59 04/13/19 17:15 Risperidone (RisperDAL) 1 mg BID ORAL 04/13/19 18:00 05/13/19 17:59 04/13/19 17:15 Sevelamer Carbonate (Renvela) 2,400 mg THREE TIMES A DAY ORAL 04/09/19 13:00 05/06/19 12:59 04/13/19 17:15 Tomy Perdomo MD Apr 15, 2019 13:51
[2019-04-15 15:39] VITALS: BP 176/153
[2019-04-15 16:00] VITALS: BP 176/153
--- NOTE | 2019-04-15 16:37 | NUR ---
CASE MANAGEMENT:REVIEW SI;ESRD ON HD. ENTERITIS. HTN. TEMP REFUSED MI 94 BP 176/153 H/H 8.2/24.5 BUN 60 CR 8.8 CA 7.2 IS;COREG PO Q12 HRS PROTONIX PO BID HEPARIN SUBQ Q12 HRS IRON SUCROSE IV HS HYDRALAZINE PO Q8 HRS MEDS SURG STATUS PLAN OF CARE; HD TODAY DCP;TO BOARD AND CARE
--- NOTE | 2019-04-15 17:00 | Consultation ---
DATE OF CONSULTATION: 04/15/2019 CONSULTING PHYSICIAN: Chavo Peralta M.D. HISTORY OF PRESENT ILLNESS: The patient is a 58-year-old male patient who was admitted to the hospital because of abdominal pain, came in from [facility] with abdominal pain for one day, nausea and vomiting. He came to the ER for that reason, but he has lot of psychomotor agitation, irritability that is why his attending has requested daily psychiatric consultation. MEDICAL HISTORY: He has a history of anemia; dermatitis; end-stage renal disease, on hemodialysis; hypertensive kidney disease; and abdominal pain. ALLERGIES: No known drug allergies. PSYCHOTROPIC MEDICATIONS ON ADMISSION: The patient denies having psychotropic medications. SUBSTANCE ABUSE HISTORY: Denies drug or alcohol use. FAMILY PSYCHIATRIC HISTORY: Denies. PAIN ASSESSMENT: 04/15 pain. DEVELOPMENT PROBLEMS: Denies. SOCIAL HISTORY: The patient lives in [facility]. Financially supported by [employer] and Medicare. PSYCHIATRIC HISTORY: He denies, overall it is unclear if he has had any psychiatric history, but currently has paranoid schizophrenia according to the documentation. STRENGTHS: He is motivated to get better and has a place to live. WEAKNESSES: He is impulsive with minimal support system. MENTAL STATUS EXAMINATION: This is a 58-year-old male. Appearance is disheveled. Attitude, irritable and agitated. Affect, guarded and restricted. Intellect, poor. Mood, depressed and anxious. Motor activity, psychomotor agitation. Attention is poor. Orientation x2. Speech is low volume, slurred. Thought process, disorganized and illogical. Insight and judgment poor. DIAGNOSIS: Paranoid schizophrenia with acute exacerbation. PLAN: Treat him with Haldol Decanoate 50 mg IM every month oral medications. Risperdal at a dose of 1 mg twice a day and Ativan 1 every six hours p.r.n. anxiety and agitation. Twenty minutes of cognitive behavioral therapy provided to help him identify his automatic negative thoughts and help him convert those negative thoughts to more positive to reduce depression, anxiety, and mood liability. Chavo Peralta M.D. DR: HEMA JOB#: [id number] CC:
--- NOTE | 2019-04-15 19:35 | NUR ---
NURSE NOTES: RECEIVED PATIENT FROM JESI RAJPUT. PATIENT IS AWAKE, AAOX4, ON ROOM AIR, NO ACUTE DISTRESS NOTED. NO IV ACCESS, MD AWARE. RIGHT UPPER ARM AV SHUNT NOTED. SKIN IS DRY AND SCALY, SHEDDING ALL OVER, MULTIPLE SELF-INFLICT SCRATCH FLORES NOTED ON BACK AND CHEST. BED IS LOCKED AND LOW, BED ALARMS ACTIVE, SIDE RAILS UP X2 AND CALL LIGHT IS WITHIN REACH. WILL CONTINUE TO MONITOR.
--- NOTE | 2019-04-15 19:49 | NUR ---
HAND-OFF: Report given to RN Marya.
[2019-04-15 20:00] VITALS: BP 144/65
[2019-04-15] MEDS: Epoetin Alfa-EPBX(ESRD on dialysis)10,000 unit/ml vial SUBQ SCH (20:57)
[2019-04-16] VITALS: BP 156/67
[2019-04-16] MEDS: HydrALAZINE 25mg tab ORAL SCH ×3 (00:36→13:04)
--- NOTE | 2019-04-16 07:10 | NUR ---
NURSE NOTES: Received patient in bed.patient Awake, A/O x4. denies pain. no sign of distress. No IV access, MD previously made aware. Right upper arm HD shunt access intact. on fall precaution observed and maintained, kept clean dry and comfortable, needs met and anticipated luzma barrera
--- NOTE | 2019-04-16 07:49 | NUR ---
HAND-OFF: Report given to JESI Ochoa.
[2019-04-16] MEDS: Docusate 100mg cap ORAL SCH ×3 (08:40→17:38)
[2019-04-16] MEDS: Carvedilol 25mg Tab ORAL SCH (08:40)
[2019-04-16] MEDS: Heparin 5000 units/ml inj SUBQ SCH (08:42)
--- NOTE | 2019-04-16 11:02 | General Progress Note ---
Assessment/Plan Status: stable, progressing Assessment/Plan: Progress Note date and time: 04/07/19 0739 Assessment/Plan Status: unchanged Assessment/Plan: GI: Plan Problems: (1) Abdominal pain (2) Enteritis (3) Anemia (4) elevated CEA Plan #Abdominal pain secondary to viral enteritis CT reviewed (04/05/19) >> Questionable minimal wall thickening of left upper quadrant small bowel loops, if real could indicate mild enteritis changes. Zofran PRN for any nausea vomiting Collect stool studies and C. difficile if patient has persistent diarrhea rule out bacterial Pain management #Anemia most likely secondary to chronic kidney disease anemia work up Obtain occult blood stool to evaluate for any GI bleed>>> neg monitor H&H, prn transfusions Prophylactic PPI needs out patient GI procedures given elevated CEA Subjective ROS Limited/Unobtainable: Yes Allergies: Coded Allergies: No Known Allergies (Unverified , 04/05/19) Objective Last 24 Hour Vital Signs Date Time Temp Pulse Resp B/P (MAP) Pulse Ox O2 Delivery O2 Flow Rate FiO2 04/16/19 08:40 87 156/67 04/16/19 08:00 Room Air 04/16/19 00:36 156/67 04/16/19 00:00 97.0 87 19 156/67 (96) 99 04/15/19 21:00 Room Air 04/15/19 20:56 98 144/65 04/15/19 20:00 98.8 98 20 144/65 (91) 99 04/15/19 16:00 98.4 94 18 176/153 (161) 92 04/15/19 15:40 176/153 04/15/19 15:39 94 176/153 (161) Intake and Output 04/15/19 04/16/19 19:00 07:00 Intake Total 1060 ml Output Total 2600 ml 100 ml Balance -1540 ml -100 ml Intake Oral 1060 ml Output Urine Total 600 ml 100 ml Hemodialysis UF 2000 ml # Voids 1 # Bowel Movements 1 Height (Feet): 5 Height (Inches): 6.00 Weight (Pounds): 125 General Appearance: alert EENT: PERRL/EOMI Neck: supple Cardiovascular: normal rate Respiratory/Chest: decreased breath sounds Abdomen: normal bowel sounds, non tender, soft Extremities: non-tender Luis Manuel Novak MD Apr 16, 2019 11:02
--- NOTE | 2019-04-16 12:06 | Infectious Diseases Prog Note ---
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 Subjective Allergies: Coded Allergies: No Known Allergies (Unverified , 04/05/19) Subjective no acute event comfortable Objective Vital Signs Last 24 Hour Vital Signs Date Time Temp Pulse Resp B/P (MAP) Pulse Ox O2 Delivery O2 Flow Rate FiO2 04/16/19 08:40 87 156/67 04/16/19 08:00 Room Air 04/16/19 00:36 156/67 04/16/19 00:00 97.0 87 19 156/67 (96) 99 04/15/19 21:00 Room Air 04/15/19 20:56 98 144/65 04/15/19 20:00 98.8 98 20 144/65 (91) 99 04/15/19 16:00 98.4 94 18 176/153 (161) 92 04/15/19 15:40 176/153 04/15/19 15:39 94 176/153 (161) Height (Feet): 5 Height (Inches): 6.00 Weight (Pounds): 125 HEENT: anicteric Respiratory/Chest: normal breath sounds Cardiovascular: regularly irregular Abdomen: no organomegaly Current Medications Medications (Trade) Dose Ordered Sig/Velma Route PRN Reason Start Time Stop Time Status Last Admin Dose Admin Acetaminophen (Tylenol) 650 mg Q4H PRN ORAL Pain Scale (3-5) 04/05/19 13:30 05/05/19 13:29 04/08/19 20:46 Carvedilol (Coreg) 25 mg EVERY 12 HOURS ORAL 04/06/19 21:00 05/05/19 20:59 04/16/19 08:40 Clonidine HCl (Catapres Tab) 0.1 mg Q4H PRN ORAL SBP over 160 04/05/19 13:30 05/05/19 13:29 04/15/19 15:40 Diphenhydramine HCl (Benadryl) 50 mg Q6H PRN ORAL Itching 04/07/19 08:30 05/07/19 08:29 04/07/19 18:10 Docusate Sodium (Colace) 100 mg THREE TIMES A DAY ORAL 04/05/19 18:00 05/05/19 17:59 04/16/19 08:40 Epoetin Shlomo (Epoetin Shlomo(ESRD on dialysis)) 10,000 unit MON-MON-MON SUBQ 04/08/19 21:00 05/08/19 20:59 04/15/19 20:57 Heparin Sodium (Porcine) (Heparin 5000 units/ml) 5,000 units EVERY 12 HOURS SUBQ 04/05/19 21:00 05/05/19 20:59 04/15/19 20:57 Hydralazine HCl (Apresoline) 25 mg Q8HR ORAL 04/11/19 14:00 05/11/19 13:59 04/16/19 00:36 Lorazepam (Ativan) 1 mg Q6H PRN ORAL For Anxiety 04/15/19 04:15 04/22/19 04:14 04/15/19 04:37 Pantoprazole (Protonix) 40 mg BID ORAL 04/05/19 18:00 05/06/19 08:59 04/16/19 08:40 Risperidone (RisperDAL) 1 mg BID ORAL 04/13/19 18:00 05/13/19 17:59 04/16/19 08:40 Sevelamer Carbonate (Renvela) 2,400 mg THREE TIMES A DAY ORAL 04/09/19 13:00 05/06/19 12:59 04/16/19 08:40 Tomy Perdomo MD Apr 16, 2019 12:06
--- NOTE | 2019-04-16 12:22 | Nephrology Progress Note ---
Assessment/Plan Problem List: (1) End stage renal disease on dialysis (2) Dermatitis (3) Abdominal pain (4) Hypertensive kidney disease (5) Anemia in chronic kidney disease (CKD) Assessment ESRD- high K today Abdominal pain- Scaly skin lesions- Anemia of CKD HTN Plan Okay to discharge from renal standpoint of view Dialysis April 16 Patient has been discharged but there is a placement issue Was last dialyzed on April 11 and his next dialysis will be on April 14 Today's labs are reviewed Refuses blood work Adjust blood pressure medication Venofer and Epogen 2D echo EjFx 60% Renal diet when Ok to start PO by GI Phos binders per orders Subjective ROS Limited/Unobtainable: No Constitutional: Reports: malaise Objective Objective Last 24 Hour Vital Signs Date Time Temp Pulse Resp B/P (MAP) Pulse Ox O2 Delivery O2 Flow Rate FiO2 04/16/19 08:40 87 156/67 04/16/19 08:00 Room Air 04/16/19 00:36 156/67 04/16/19 00:00 97.0 87 19 156/67 (96) 99 04/15/19 21:00 Room Air 04/15/19 20:56 98 144/65 04/15/19 20:00 98.8 98 20 144/65 (91) 99 04/15/19 16:00 98.4 94 18 176/153 (161) 92 04/15/19 15:40 176/153 04/15/19 15:39 94 176/153 (161) Intake and Output 04/15/19 04/16/19 19:00 07:00 Intake Total 1060 ml Output Total 2600 ml 100 ml Balance -1540 ml -100 ml Intake Oral 1060 ml Output Urine Total 600 ml 100 ml Hemodialysis UF 2000 ml # Voids 1 # Bowel Movements 1 Current Medications Medications (Trade) Dose Ordered Sig/Velma Route PRN Reason Start Time Stop Time Status Last Admin Dose Admin Acetaminophen (Tylenol) 650 mg Q4H PRN ORAL Pain Scale (3-5) 04/05/19 13:30 05/05/19 13:29 04/08/19 20:46 Carvedilol (Coreg) 25 mg EVERY 12 HOURS ORAL 04/06/19 21:00 05/05/19 20:59 04/16/19 08:40 Clonidine HCl (Catapres Tab) 0.1 mg Q4H PRN ORAL SBP over 160 04/05/19 13:30 05/05/19 13:29 04/15/19 15:40 Diphenhydramine HCl (Benadryl) 50 mg Q6H PRN ORAL Itching 04/07/19 08:30 05/07/19 08:29 04/07/19 18:10 Docusate Sodium (Colace) 100 mg THREE TIMES A DAY ORAL 04/05/19 18:00 05/05/19 17:59 04/16/19 08:40 Epoetin Shlomo (Epoetin Shlomo(ESRD on dialysis)) 10,000 unit MON-MON-MON SUBQ 04/08/19 21:00 05/08/19 20:59 04/15/19 20:57 Heparin Sodium (Porcine) (Heparin 5000 units/ml) 5,000 units EVERY 12 HOURS SUBQ 04/05/19 21:00 05/05/19 20:59 04/15/19 20:57 Hydralazine HCl (Apresoline) 25 mg Q8HR ORAL 04/11/19 14:00 05/11/19 13:59 04/16/19 00:36 Lorazepam (Ativan) 1 mg Q6H PRN ORAL For Anxiety 04/15/19 04:15 04/22/19 04:14 04/15/19 04:37 Pantoprazole (Protonix) 40 mg BID ORAL 04/05/19 18:00 05/06/19 08:59 04/16/19 08:40 Risperidone (RisperDAL) 1 mg BID ORAL 04/13/19 18:00 05/13/19 17:59 04/16/19 08:40 Sevelamer Carbonate (Renvela) 2,400 mg THREE TIMES A DAY ORAL 04/09/19 13:00 05/06/19 12:59 04/16/19 08:40 Height (Feet): 5 Height (Inches): 6.00 Weight (Pounds): 125 Cardiovascular: normal rate Respiratory/Chest: lungs clear Abdomen: soft Objective No change in overall examination-patient uncooperative and hard to examine Mayank King MD Apr 16, 2019 12:22
--- NOTE | 2019-04-16 14:42 | General Progress Note ---
Assessment/Plan Problem List: (1) Anemia ICD Codes: D64.9 - Anemia, unspecified SNOMED: 004388611 (2) Dermatitis ICD Codes: L30.9 - Dermatitis, unspecified SNOMED: 023593850 (3) Enteritis ICD Codes: K52.9 - Noninfective gastroenteritis and colitis, unspecified SNOMED: 01549369 (4) Abdominal pain ICD Codes: R10.9 - Unspecified abdominal pain SNOMED: 17908871 Qualifiers: Qualified Codes: R10.12 - Left upper quadrant pain (5) End stage renal disease on dialysis ICD Codes: N18.6 - End stage renal disease; Z99.2 - Dependence on renal dialysis SNOMED: 833266825 Status: stable, progressing Assessment/Plan: pt diet dialysis prn gi f/u cbc bmp am psyc transfer vs dc to snf vs home w hh Subjective Constitutional: Reports: weakness Allergies: Coded Allergies: No Known Allergies (Unverified , 04/05/19) All Systems: reviewed and negative except above Subjective sleepy in bed Objective Last 24 Hour Vital Signs Date Time Temp Pulse Resp B/P (MAP) Pulse Ox O2 Delivery O2 Flow Rate FiO2 04/16/19 08:40 87 156/67 04/16/19 08:00 Room Air 04/16/19 00:36 156/67 04/16/19 00:00 97.0 87 19 156/67 (96) 99 04/15/19 21:00 Room Air 04/15/19 20:56 98 144/65 04/15/19 20:00 98.8 98 20 144/65 (91) 99 04/15/19 16:00 98.4 94 18 176/153 (161) 92 04/15/19 15:40 176/153 04/15/19 15:39 94 176/153 (161) Intake and Output 04/15/19 04/16/19 19:00 07:00 Intake Total 1060 ml Output Total 2600 ml 100 ml Balance -1540 ml -100 ml Intake Oral 1060 ml Output Urine Total 600 ml 100 ml Hemodialysis UF 2000 ml # Voids 1 # Bowel Movements 1 Height (Feet): 5 Height (Inches): 6.00 Weight (Pounds): 125 General Appearance: lethargic EENT: normal ENT inspection Neck: normal alignment Cardiovascular: normal peripheral pulses, normal rate, regular rhythm Respiratory/Chest: chest wall non-tender, lungs clear, normal breath sounds Abdomen: normal bowel sounds, non tender, soft Extremities: normal inspection Edema: no edema noted Arm (L), no edema noted Arm (R), no edema noted Leg (L), no edema noted Leg (R), no edema noted Pedal (L), no edema noted Pedal (R), no edema noted Generalized Neurologic: motor weakness Skin: normal pigmentation, warm/dry Shiraz Ricks Apr 16, 2019 14:42
--- NOTE | 2019-04-16 15:35 | NUR ---
MASTER ESTHETICIAN NOTES PT ACCEPTED TO [facility] PER MASTER ESTHETICIAN FROM [facility]. SPOKE WITH AGATA LACY MADE AWARE OF PT DISCHARGE TODAY.PRESCRIPTIONS GIVEN TO CHARGE NURSE. [facility] [place] [address] MASTER ESTHETICIAN ABILIO [phone] Addendum: 04/16/19 at 1634 by TEOFILO SHAIKH RN RN [facility] TO TRANSPORT PT WITH AN ETA OF 1700. SPOKE WITH ABILIO FROM [facility] SHE WILL MEET HIM AT THE FACILITY.
[2019-04-16 16:00] VITALS: BP 134/72
--- NOTE | 2019-04-16 16:15 | Progress Note ---
DATE: 04/16/2019 ADDENDUM 20 minutes of cognitive behavioral therapy to help him identify his automatic negative thoughts, help him convert his negative thoughts to more positive thoughts to reduce depression, anxiety, mood lability. Chavo Peralta M.D. DR: MIREYA JOB#: [id number] CC:
--- NOTE | 2019-04-16 16:15 | Progress Note ---
DATE: 04/16/2019 SUBJECTIVE: This is a 58-year-old male patient with abdominal pain. He continues to have some confusion, disorganized thought process, mood lability, decline in cognition below his baseline. He also has anemia, end-stage renal disease, hypertensive renal disease, and so he has increased altered mental status as a result. MENTAL STATUS EXAMINATION: This is a 58-year-old male. Appearance is disheveled. Attitude, irritable and agitated. Affect, guarded and restricted. Intellect poor. Mood, depressed and anxious. Motor activity, psychomotor agitation. Attention span is poor. Orientation x2. Speech is low volume, slurred. Thought process, disorganized and illogical. Insight and judgment is poor. DIAGNOSIS: Paranoid schizophrenia acute exacerbation. PLAN: This patient has lot of psychomotor agitation, still intermittently refusing treatment. So, we will continue him on regimen of Haldol Decanoate dose of 50 mg IM every month, Ativan 1 mg every 6 hours p.r.n. anxiety and agitation, Risperdal 1 mg twice a day. A 20 minutes of reality-based supportive psychotherapy. Chart reviewed. Discussed with staff. Seen and assessed in his room. Chavo Peralta M.D. DR: MIREYA JOB#: [id number] CC:
--- NOTE | 2019-04-16 16:19 | NUR ---
CHARGE NURSE NOTE: Pt non complaint, aggressive, refused labs draw, medications; is scheduled for discharge to Board and Care. Kelly DAWKINS director and notified.
--- NOTE | 2019-04-16 16:35 | Surgery Progress Note ---
Surgery Progress Note Subjective Additional Comments no acute events pending placement Objective Last 24 Hour Vital Signs Date Time Temp Pulse Resp B/P (MAP) Pulse Ox O2 Delivery O2 Flow Rate FiO2 04/16/19 16:00 97.2 80 19 134/72 (92) 93 04/16/19 08:40 87 156/67 04/16/19 08:00 Room Air 04/16/19 00:36 156/67 04/16/19 00:00 97.0 87 19 156/67 (96) 99 04/15/19 21:00 Room Air 04/15/19 20:56 98 144/65 04/15/19 20:00 98.8 98 20 144/65 (91) 99 I&O Intake and Output 04/15/19 04/16/19 19:00 07:00 Intake Total 1060 ml Output Total 2600 ml 100 ml Balance -1540 ml -100 ml Intake Oral 1060 ml Output Urine Total 600 ml 100 ml Hemodialysis UF 2000 ml # Voids 1 # Bowel Movements 1 Dressing: dry, other Wound: clean, dry Cardiovascular: RSR Respiratory: clear Abdomen: soft, non-tender, present bowel sounds Extremities: no edema, no tenderness, no cyanosis Plan Problems: (1) Abdominal pain Assessment & Plan: 58 year old male with likely enteritis. afebrile HD stable, labs okay CT noted as below abd exam fairly benign constipated okay for diet bowel regimen trend labs iv hydration improving overall hydrated now labs noted dry skin on face, scalp, upper extremities resolved. lower extremity scaly skin, cont skin cream will follow with serial exams thank you Lack of enteric contrast limits assessment of the GI tract. There is no evidence of colonic diverticulosis or diverticulitis. What is probably a normal appendix is visualized. No small bowel distention. There is questionably minimal wall thickening of left upper quadrant small bowel loops. No free or loculated intraperitoneal gas or fluid is evident. There is bilateral inguinal lymphadenopathy, largest nodes measuring up to 2.5 cm long axis dimension by 1.6 cm short axis dimension. There are also prominent less strikingly enlarged iliac chain and retroperitoneal nodes. There are a few prominent peripancreatic nodes as well. The liver is mildly enlarged. Gallbladder demonstrates no definite gallstones. There is equivocal minimal edema of the gallbladder wall, however. No biliary ductal dilatation. The pancreas is unremarkable. The spleen is upper limits of normal in size. The adrenals are unremarkable. The kidneys are atrophic. No pelvic mass other than the lymphadenopathy. The bladder and prostate are unremarkable. There is fairly extensive vascular calcification. The lung bases demonstrate posterior dependent atelectatic changes. The heart is enlarged. The bones are unremarkable. Impression: Limited assessment of the GI tract, due to lack of enteric contrast demonstration Questionable minimal wall thickening of left upper quadrant small bowel loops, if real could indicate mild enteritis changes. Bilateral inguinal lymphadenopathy, nonspecific as regards etiology, could be reactive, neoplastic, or on the basis of a lymphoproliferative disorder. There are also prominent but not frankly enlarged bilateral iliac chain and retroperitoneal lymph nodes. Mild hepatomegaly Atrophic kidneys, in keeping with stated clinical history of chronic renal disease Cardiomegaly Mason Cruz Apr 16, 2019 16:35
--- NOTE | 2019-04-16 17:03 | NUR ---
DISCHARGE PLANNING PATIENT REFERRED TO [facility] P: [phone] EMAIL: [email or web address] PER AMANDA AT [facility], PATIENT ACCEPTED AND AGENCY WILL FOLLOW
--- NOTE | 2019-04-16 18:30 | NUR ---
nurse notes discharged to [facility] with home health obtained, when patient learned this am that he will be discharged, patient refused v/s and medication,but CM and town planner explained to him . eventually patient agreed, called and left message to patient family regarding patient discharge to 1830 Discharged in stable condition via ambulance with all belongings taken , refused to sign belongings list, luzma barrera
--- NOTE | 2019-04-16 19:30 | Progress Note ---
DATE: 04/16/2019 SUBJECTIVE: This is a 58-year-old male patient. The patient came to the hospital because of acute renal disease and abdominal pain. He has anemia and dermatitis, but he is also diagnosed with paranoid schizophrenia, confusion, and mood lability. He is intermittently refusing treatment due to poor insight, so that is why daily consultation is requested for this patient. MENTAL STATUS EXAMINATION: This is a 58-year-old male. Appearance is disheveled. Attitude, irritable and agitated. Affect, guarded and restricted. Intellect, poor. Mood, depressed and anxious. Motor activity, psychomotor agitation. Attention span is poor. Orientation x2. Speech is pressured. Thought process, disorganized and illogical. Insight and judgment is poor. DIAGNOSIS: Paranoid schizophrenia with acute exacerbation. PLAN: Continue him on Ativan 1 mg every 6 hours p.r.n. anxiety and agitation. Also, treat the patient with Haldol Decanoate 50 mg IM every month . Chart reviewed. Discussed with staff. Seen and assessed in his room. Chavo Peralta M.D. DR: CARLOS JOB#: [id number] CC:
--- NOTE | 2019-04-18 09:55 | Discharge Summary ---
Discharge Summary Discharge Summary _ DATE OF ADMISSION: 04/05/2019 DATE OF DISCHARGE: 04/16/2019 DISCHARGED BY: Dr Ricks REASON FOR ADMISSION: 58 years old male with past medical history of COPD, end-stage renal disease, on hemodialysis, hyperlipidemia, GERD, presented with complaint of abdominal pain. Pain located in left upper quadrant and left flank area and was associated with nausea no vomiting. Pain was rated as 7 out of 10 on a scale 1-10, was constant, fairly severe . Vital signs revealed elevated blood pressure 180/76 , otherwise were stable. Laboratory work-up revealed BUN 30, creatinine 5.6, consistent with known history of end-stage renal disease. Lactic acid 1.0. Glucose 96. Stable LFT and lipase. No leukocytosis, hemoglobin 9.5 ,hematocrit 28.2, platelets 176. EKG revealed sinus rhythm. Chest x-ray revealed cardiomegaly and mild interstitial edema. CT of the abdomen and pelvis revealed questionable minimal wall thickening of the left upper quadrant small bowel loops . if real could indicate mild enteritis changes. Bilateral inguinal lymphadenopathy, nonspecific. Mild hepatomegaly. Atrophic kidneys. Cardiomegaly. In emergency department patient received 500 mL of the IV fluid , Pepcid , Reglan, and admitted for further management. CONSULTANTS: ID specialist Dr. Perdomo GI specialist Dr. Novak radio frequency engineer Dr. King surgery Dr. Cruz psychiatrist Dr. Peralta [facility] COURSE: Patient admitted to medical surgical floor. GI specialist closely followed. Patient initially was kept n.p.o. Antiemetic provided as needed. Pain management was addressed. Diarrhea resolved. GI prophylaxis with PPI provided. Patient remained afebrile, no leukocytosis. Patient was monitored off antibiotic as per ID specialist recommendation. Hemoglobin and hematocrit were closely monitored with goal to keep hemoglobin above 7 . Anemia work-up was consistent with anemia of chronic disease. Ferritin 672. Patient was on Venofer and Epogen. Prior to discharge hemoglobin 8.2, hematocrit 24.5. Stool for occult blood was negative. CEA elevated 8.8. Patient was advised to schedule colonoscopy as outpatient , given elevated CEA. Patient slowly started on diet and was advanced as tolerated. Surgeon followed with serial exams. per surgeon, no need for any surgical intervention at this time. Dialysis provided as per radio frequency engineer orders with close monitoring of volumes , electrolytes and renal parameters . Renal diet provided. Echocardiogram revealed preserved ejection fraction of 60% and evidence of mild left ventricular hypertrophy. No evidence of wall motion abnormality. Right ventricular systolic pressure of 93 , consistent with severe pulmonary hypertension. Significant left ventricular diastolic dysfunction grade 2. Moderate mitral and aortic regurgitation. Blood pressure was managed with hydralazine and beta-mariama. Blood pressure stabilized. Topical care provided for dermatitis. Psychiatrist followed. Psychiatric medication regimen was optimized as per psychiatrist. Patient clinically stabilized and was ready for discharge to board and care with home health services. FINAL DIAGNOSES: Enteritis Abdominal pain secondary to enteritis Anemia of chronic kidney disease End-stage renal disease, on hemodialysis Hypertensive kidney disease Elevated CEA Dermatitis Paranoid schizophrenia with acute exacerbation DISCHARGE MEDICATIONS: See Medication Reconciliation list. DISCHARGE INSTRUCTIONS: Patient was discharged to board and care with home health services. Follow up with primary care provider in one week. I have been assigned to dictate discharge summary for this account. I was not involved in the patient's management. Thea Yost NP Apr 18, 2019 09:55
== END 2019-04-16 18:24 | disposition home health service (06) | DRG 391 ==
LOC: EDBD 08:51 → EDSEX 08:51 → EMR 10:00 → EDBEDREQ 10:22 → 4E 10:47 → EDBEDREQ 11:07 → 4E 15:27
PROC: 5A1D70Z Performance of Urinary Filtration, Intermittent, Less than 6 Hours Per Day (ICD-10-PCS; principal; 2019-04-06)
DX: K52.9 Noninfective gastroenteritis and colitis, unspecified (principal); N18.6 End stage renal disease; I13.11 Hypertensive heart and chronic kidney disease without heart failure, with stage 5 chronic kidney disease, or end stage renal disease; F20.0 Paranoid schizophrenia; Z99.2 Dependence on renal dialysis; R97.0 Elevated carcinoembryonic antigen [CEA]; L30.9 Dermatitis, unspecified
CPT/HCPCS: 36415; 71045; 74177; 80048; 80053; 80061; 80076; 82140; 82270; 82378; 82607; 82728; 82746; 82977; 83036; 83540; 83550; 83605; 83690; 83735; 83880; 84100; 84439; 84443; 84484; 84550; 85007; 85025; 85044; 85610; 85730; 86140; 86706; 86850; 86900; 86901; 87081; 93005; 93306; 96374; 96375; 97803; 99285; J2765